=== PATIENT | male | born 1945 | race Caucasian/White ===

== ENCOUNTER → 2016-04-12 | Outpatient (REF) | payer MEDICARE ==
[2016-04-12 11:27] LABS: ALBUMIN 3.8 GM/DL (3.2-5.2); ALBUMIN/GLOBULIN RATIO 1.41 (1.00-1.93); ALKALINE PHOSPHATASE 119 U/L (45-117); ALT/SGPT 27 U/L (12-78); ANION GAP 6 MEQ/L (8-16); AST/SGOT 20 U/L (15-37); BILIRUBIN,TOTAL 0.5 MG/DL (0.2-1.0); BLOOD UREA NITROGEN 15 MG/DL (7-18); CALCIUM LEVEL 8.3 MG/DL (8.8-10.2); CARBON DIOXIDE LEVEL 29 MEQ/L (21-32); CHLORIDE LEVEL 105 MEQ/L (98-107); GLOMERULAR FILTRATION RATE > 60.0 (>42); GLUCOSE, FASTING 87 MG/DL (83-110); POTASSIUM SERUM 4.2 MEQ/L (3.5-5.1); SODIUM LEVEL 140 MEQ/L (136-145); TOTAL PROTEIN 6.5 GM/DL (6.4-8.2)
== END ==
LOC: M SFHCPLAZ 08:11
PROVIDERS: ATTEND Internal Medicine
DX: I10 Essential (primary) hypertension (principal)

== ENCOUNTER → 2016-10-16 | Outpatient (REF) | payer MEDICARE ==
[2016-10-16 12:16] LABS: MEAN CORPUSCULAR HEMOGLOBIN 33.5 pg (27.0-33.0); MEAN CORPUSCULAR HGB CONC 33.1 g/dl (32.0-36.5); MEAN CORPUSCULAR VOLUME 101.1 fl (80.0-96.0); RED CELL DISTRIBUTION WIDTH 15.8 % (11.5-14.5); WHITE BLOOD COUNT 3.9 K/mm3 (4.0-10.0)
[2016-10-16 12:23] LABS: ALBUMIN 3.9 GM/DL (3.2-5.2); ALBUMIN/GLOBULIN RATIO 1.39 (1.00-1.93); ALKALINE PHOSPHATASE 99 U/L (45-117); ALT/SGPT 28 U/L (12-78); ANION GAP 8 MEQ/L (8-16); AST/SGOT 24 U/L (15-37); BILIRUBIN,TOTAL 0.5 MG/DL (0.2-1.0); BLOOD UREA NITROGEN 19 MG/DL (7-18); CALCIUM LEVEL 8.6 MG/DL (8.8-10.2); CARBON DIOXIDE LEVEL 29 MEQ/L (21-32); CHLORIDE LEVEL 104 MEQ/L (98-107); CHOLESTEROL LEVEL 133 MG/DL (<200); CREATININE FOR GFR 0.92 MG/DL (0.70-1.30); GLOMERULAR FILTRATION RATE > 60.0 (>42); GLUCOSE, FASTING 79 MG/DL (83-110); POTASSIUM SERUM 4.7 MEQ/L (3.5-5.1); SODIUM LEVEL 141 MEQ/L (136-145); TOTAL PROTEIN 6.7 GM/DL (6.4-8.2); TRIGLYCERIDES LEVEL 57 MG/DL (<150)
== END ==
LOC: M SFHCPLAZ 08:31
PROVIDERS: ATTEND Internal Medicine
DX: Z79.899 Other long term (current) drug therapy (principal); J44.0 Chronic obstructive pulmonary disease with (acute) lower respiratory infection; I10 Essential (primary) hypertension; I25.10 Atherosclerotic heart disease of native coronary artery without angina pectoris

== ENCOUNTER → 2017-04-03 | Outpatient (CLI) | payer MEDICARE | LOC: M RAD 09:48 | DX: J44.9 Chronic obstructive pulmonary disease, unspecified (principal); Z87.891 Personal history of nicotine dependence | CPT/HCPCS: G0297 ==

== ENCOUNTER → 2017-04-20 | Outpatient (REF) | payer MEDICARE ==
[2017-04-20 13:01] LABS: HEMATOCRIT 43.5 % (42.0-52.0); HEMOGLOBIN 14.6 g/dl (14.0-18.0); MEAN CORPUSCULAR HEMOGLOBIN 34.6 pg (27.0-33.0); MEAN CORPUSCULAR HGB CONC 33.6 g/dl (32.0-36.5); MEAN CORPUSCULAR VOLUME 103.1 fl (80.0-96.0); PLATELET COUNT, AUTOMATED 221 10^3/uL (150-450); RED BLOOD COUNT 4.22 10^6/uL (4.30-6.10); WHITE BLOOD COUNT 5.7 10^3/uL (4.0-10.0)
[2017-04-20 13:17] LABS: VITAMIN B12 LEVEL 512 PG/ML
[2017-04-20 13:35] LABS: ALBUMIN 3.9 GM/DL (3.2-5.2); ALBUMIN/GLOBULIN RATIO 1.44 (1.00-1.93); ALKALINE PHOSPHATASE 98 U/L (45-117); ALT/SGPT 27 U/L (12-78); ANION GAP 8 MEQ/L (8-16); AST/SGOT 19 U/L (7-37); BILIRUBIN,TOTAL 0.4 MG/DL (0.2-1.0); BLOOD UREA NITROGEN 14 MG/DL (7-18); CALCIUM LEVEL 8.5 MG/DL (8.8-10.2); CARBON DIOXIDE LEVEL 29 MEQ/L (21-32); CHLORIDE LEVEL 105 MEQ/L (98-107); CREATININE FOR GFR 0.78 MG/DL (0.70-1.30); GLOMERULAR FILTRATION RATE > 60.0 (>42); GLUCOSE, FASTING 91 MG/DL (70-100); MAGNESIUM LEVEL 1.7 MG/DL (1.8-2.4); POTASSIUM SERUM 4.2 MEQ/L (3.5-5.1); SODIUM LEVEL 142 MEQ/L (136-145); TOTAL PROTEIN 6.6 GM/DL (6.4-8.2)
== END ==
LOC: M SFHCPLAZ 07:46
DX: D75.89 Other specified diseases of blood and blood-forming organs (principal); I10 Essential (primary) hypertension
CPT/HCPCS: 82746

== ENCOUNTER 2017-08-16 08:29 | Day surgery (SDC) | payer MEDICARE ==
[2017-08-16] MEDS: PROPARACAINE 0.5% OPHTH SOL 15ML OD (09:17)
[2017-08-16] MEDS: PHENYLEPHRINE 2.5% OPHTH SOL 2ML OD (09:17)
[2017-08-16] MEDS: TROPICAMIDE 1% OPHTH SOLN 2ML OD (09:17)
[2017-08-16] MEDS: OFLOXACIN 0.3 % (OCUFLOX) OPTH SOL 5ML OD (09:17)
[2017-08-16] MEDS ORDERED: fentaNYL 100 MCG/2 ML INJECTION (J3010) As Ordered (09:59)
[2017-08-16] MEDS ORDERED: MIDAZOLAM INJ 2 MG/2 ML VIAL (J2250) As Ordered (09:59)
[2017-08-16] MEDS: DUOVISC (0.50ML VISCOAT/0.55ML PROVISC) OPHTH KIT As Ordered ×2 (10:38→10:40)
[2017-08-16] MEDS: LIDOCAINE 0.75%/EPINEPHRINE 0.025% IN BSS 1ML SYR INTRACAMERAL (OR ONLY) As Ordered ×2 (10:38→10:40)
[2017-08-16] MEDS: POVIDONE-IODINE 5% OPHTH PREP SOL 30ML As Ordered ×2 (10:38→10:39)
[2017-08-16] MEDS: CEFUROXIME 1MG/0.1ML INTRACAMERAL INJ As Ordered ×2 (10:38→10:39)
[2017-08-16] MEDS: BALANCED SALT IRRIGATION SOLUTION 500ML BAG (FOR OR EYE MACHINE) As Ordered ×2 (10:38→10:39)
== END 2017-08-16 11:30 | disposition home or self-care (01) ==
LOC: M SDC 08:29
DX: H25.11 Age-related nuclear cataract, right eye (principal); I25.10 Atherosclerotic heart disease of native coronary artery without angina pectoris; I25.2 Old myocardial infarction; Z98.61 Coronary angioplasty status; Z79.82 Long term (current) use of aspirin; I10 Essential (primary) hypertension; E78.5 Hyperlipidemia, unspecified; Z87.891 Personal history of nicotine dependence; Z79.899 Other long term (current) drug therapy; J44.9 Chronic obstructive pulmonary disease, unspecified
CPT/HCPCS: 66984

== ENCOUNTER 2017-08-23 06:58 | Day surgery (SDC) | payer MEDICARE ==
[~2017-08-23 06:58] MED LIST: SLF 3 ML SYR IV
[2017-08-23] MEDS ORDERED: PROPARACAINE 0.5% OPHTH SOL 15ML OS (07:00)
[2017-08-23] MEDS ORDERED: OFLOXACIN 0.3 % (OCUFLOX) OPTH SOL 5ML OS (07:00)
[2017-08-23] MEDS ORDERED: TROPICAMIDE 1% OPHTH SOLN 2ML OS (07:00)
[2017-08-23] MEDS ORDERED: PHENYLEPHRINE 2.5% OPHTH SOL 2ML OS (07:00)
[2017-08-23] MEDS: PROPARACAINE 0.5% OPHTH SOL 15ML OS (07:26)
[2017-08-23] MEDS: PHENYLEPHRINE 2.5% OPHTH SOL 2ML OS (07:26)
[2017-08-23] MEDS: OFLOXACIN 0.3 % (OCUFLOX) OPTH SOL 5ML OS (07:26)
[2017-08-23] MEDS: TROPICAMIDE 1% OPHTH SOLN 2ML OS (07:26)
[2017-08-23] MEDS ORDERED: MIDAZOLAM INJ 2 MG/2 ML VIAL (J2250) As Ordered (08:43)
[2017-08-23] MEDS ORDERED: fentaNYL 100 MCG/2 ML INJECTION (J3010) As Ordered (08:43)
[2017-08-23] MEDS: LIDOCAINE 0.75%/EPINEPHRINE 0.025% IN BSS 1ML SYR INTRACAMERAL (OR ONLY) As Ordered (08:56)
[2017-08-23] MEDS: DUOVISC (0.50ML VISCOAT/0.55ML PROVISC) OPHTH KIT As Ordered (08:56)
[2017-08-23] MEDS: BALANCED SALT IRRIGATION SOLUTION 500ML BAG (FOR OR EYE MACHINE) As Ordered (08:56)
[2017-08-23] MEDS: CEFUROXIME 1MG/0.1ML INTRACAMERAL INJ As Ordered (08:56)
[2017-08-23] MEDS: POVIDONE-IODINE 5% OPHTH PREP SOL 30ML As Ordered (08:56)
== END 2017-08-23 09:45 | disposition home or self-care (01) ==
LOC: M SDC 06:58
DX: H25.12 Age-related nuclear cataract, left eye (principal); I10 Essential (primary) hypertension; I25.10 Atherosclerotic heart disease of native coronary artery without angina pectoris; I25.2 Old myocardial infarction; E78.00 Pure hypercholesterolemia, unspecified; M12.9 Arthropathy, unspecified; M54.2 Cervicalgia; J44.9 Chronic obstructive pulmonary disease, unspecified; R06.09 Other forms of dyspnea; G89.29 Other chronic pain; R91.1 Solitary pulmonary nodule; Z88.5 Allergy status to narcotic agent; Z79.899 Other long term (current) drug therapy; Z79.82 Long term (current) use of aspirin; Z87.891 Personal history of nicotine dependence; Z95.5 Presence of coronary angioplasty implant and graft
CPT/HCPCS: 66984

== ENCOUNTER → 2017-11-01 | Outpatient (REF) | payer MEDICARE ==
[2017-11-01 12:18] LABS: HEMATOCRIT 41.4 % (42.0-52.0); HEMOGLOBIN 14.1 g/dl (13.5-17.5); MEAN CORPUSCULAR HEMOGLOBIN 35.3 pg (27.0-33.0); MEAN CORPUSCULAR HGB CONC 34.1 g/dl (32.0-36.5); MEAN CORPUSCULAR VOLUME 103.5 fl (80.0-96.0); PLATELET COUNT, AUTOMATED 224 10^3/uL (150-450); RED CELL DISTRIBUTION WIDTH 14.7 % (11.5-14.5); WHITE BLOOD COUNT 5.1 10^3/uL (4.0-10.0)
[2017-11-01 12:59] LABS: ALBUMIN 3.9 GM/DL (3.2-5.2); ALBUMIN/GLOBULIN RATIO 1.39 (1.00-1.93); ALKALINE PHOSPHATASE 85 U/L (45-117); ALT/SGPT 28 U/L (12-78); ANION GAP 5 MEQ/L (8-16); AST/SGOT 21 U/L (7-37); BILIRUBIN,TOTAL 0.4 MG/DL (0.2-1.0); BLOOD UREA NITROGEN 18 MG/DL (7-18); CALCIUM LEVEL 8.8 MG/DL (8.8-10.2); CARBON DIOXIDE LEVEL 31 MEQ/L (21-32); CHLORIDE LEVEL 105 MEQ/L (98-107); CHOLESTEROL LEVEL 122 MG/DL (<200); CREATININE FOR GFR 0.91 MG/DL (0.70-1.30); GLOMERULAR FILTRATION RATE > 60.0 (>42); GLUCOSE, FASTING 96 MG/DL (70-100); HDL CHOLESTEROL 57 MG/DL (>40); LDL CHOLESTEROL 53.8 MG/DL (<100); MAGNESIUM LEVEL 1.9 MG/DL (1.8-2.4); NON-HDL-C 65 MG/DL; POTASSIUM SERUM 4.7 MEQ/L (3.5-5.1); SODIUM LEVEL 141 MEQ/L (136-145); TOTAL PROTEIN 6.7 GM/DL (6.4-8.2); TRIGLYCERIDES LEVEL 56 MG/DL (<150)
== END ==
LOC: M SFHCPLAZ 07:42
DX: D75.89 Other specified diseases of blood and blood-forming organs (principal); I10 Essential (primary) hypertension; I25.10 Atherosclerotic heart disease of native coronary artery without angina pectoris
CPT/HCPCS: 83735

== ENCOUNTER → 2018-07-11 | Outpatient (CLI) | payer MEDICARE ==
[~2018-07-11] MED LIST changes: +ANOR1AER; +ASPI81TA26 PO; +ATOR40TA75; +FLUT22IN; +LEVA12INH INH; +LEVAINH INH; +LIDO5DIS41 TD; +LISI10TA4 PO; +MELO15TA28; +METO1TAB32; +NITR0.4S14; -SLF 3 ML SYR IV
[2018-07-11 13:41] LABS: BLOOD UREA NITROGEN 17 MG/DL (7-18); CALCIUM LEVEL 8.6 MG/DL (8.8-10.2); CARBON DIOXIDE LEVEL 31 MEQ/L (21-32); CHLORIDE LEVEL 106 MEQ/L (98-107); CREATININE FOR GFR 0.88 MG/DL (0.70-1.30); GLOMERULAR FILTRATION RATE > 60.0 (>42); GLUCOSE, FASTING 103 MG/DL (70-100); POTASSIUM SERUM 4.7 MEQ/L (3.5-5.1); SODIUM LEVEL 141 MEQ/L (136-145)
== END ==
LOC: M WUC 11:32
PROVIDERS: ATTEND Physician Assistant
DX: I25.10 Atherosclerotic heart disease of native coronary artery without angina pectoris (principal)

== ENCOUNTER → 2018-07-17 | Outpatient (CLI) | payer MEDICARE ==
--- NOTE | 2018-07-17 11:55 | REP ---
REASON: COPD. COMPARISON: Multiple, latest 02/29/2016. Chronic basilar changes status quo. Cardiomediastinal silhouette unchanged. No change in the osseous structures. No acute patchy parenchymal opacities or pleural effusions have developed. IMPRESSION: No change. No acute cardiopulmonary disease. Electronically Signed by Jayce Ricardo DO 07/17/2018 03:22 P
== END ==
LOC: M SMT 08:58
PROVIDERS: ATTEND Internal Medicine Pulmonary Disease
DX: J44.9 Chronic obstructive pulmonary disease, unspecified (principal)

== ENCOUNTER → 2018-09-05 | Outpatient (REF) | payer MEDICARE ==
[2018-09-05 09:50] LABS: HEMATOCRIT 40.1 % (42.0-52.0); HEMOGLOBIN 13.4 g/dl (13.5-17.5); MEAN CORPUSCULAR HEMOGLOBIN 34.8 pg (27.0-33.0); MEAN CORPUSCULAR HGB CONC 33.4 g/dl (32.0-36.5); MEAN CORPUSCULAR VOLUME 104.2 fl (80.0-96.0); PLATELET COUNT, AUTOMATED 222 10^3/uL (150-450); RED BLOOD COUNT 3.85 10^6/uL (4.30-6.10); WHITE BLOOD COUNT 5.7 10^3/uL (4.0-10.0)
[2018-09-05 10:13] LABS: ALBUMIN 3.9 GM/DL (3.2-5.2); ALT/SGPT 26 U/L (12-78); BILIRUBIN,TOTAL 0.5 MG/DL (0.2-1.0); BLOOD UREA NITROGEN 20 MG/DL (7-18); CALCIUM LEVEL 8.8 MG/DL (8.8-10.2); CARBON DIOXIDE LEVEL 31 MEQ/L (21-32); CHLORIDE LEVEL 106 MEQ/L (98-107); CHOLESTEROL LEVEL 114 MG/DL (<200); CHOLESTEROL RISK RATIO 1.965 (<5); CREATININE FOR GFR 0.96 MG/DL (0.70-1.30); GLOMERULAR FILTRATION RATE > 60.0 (>42); GLUCOSE, FASTING 96 MG/DL (70-100); HDL CHOLESTEROL 58 MG/DL (>40); LDL CHOLESTEROL 45 MG/DL (<100); MAGNESIUM LEVEL 2.1 MG/DL (1.8-2.4); NON-HDL-C 56 MG/DL; POTASSIUM SERUM 4.8 MEQ/L (3.5-5.1); SODIUM LEVEL 141 MEQ/L (136-145); TOTAL PROTEIN 6.6 GM/DL (6.4-8.2); TRIGLYCERIDES LEVEL 54 MG/DL (<150)
== END ==
LOC: M SFHCPLAZ 08:18
PROVIDERS: ATTEND Internal Medicine
DX: Z86.010 Personal history of colon polyps (principal); I10 Essential (primary) hypertension; I25.10 Atherosclerotic heart disease of native coronary artery without angina pectoris

== ENCOUNTER → 2018-09-10 | Outpatient (CLI) | payer MEDICARE ==
--- NOTE | 2018-09-10 11:03 | REP ---
Clinical: Shortness of breath and cough. Technique: PA and lateral. Comparison: 07/17/2018, 02/29/2016 Findings: Mediastinum and cardiac silhouette are normal. Lung rosario demonstrate stable chronic interstitial changes. No consolidation, effusion, or pneumothorax. Skeletal structures demonstrate degenerative changes. Impression: Chronic stable changes. No obvious acute cardiopulmonary process. If the patient remains symptomatic consider chest CT for further investigation. Electronically Signed by Jordan Dennis MD 09/10/2018 10:54 A
== END ==
LOC: M WUC 10:22
PROVIDERS: ATTEND Physician Assistant
DX: J44.1 Chronic obstructive pulmonary disease with (acute) exacerbation (principal); J84.9 Interstitial pulmonary disease, unspecified

== ENCOUNTER 2018-09-29 08:37 | Inpatient (IN) | payer MEDICARE ==
[~2018-09-29] VITALS: Ht 170.2 cm; Wt 95.2 kg
[~2018-09-29 08:37] MED LIST changes: -ATOR40TA75; +ATOR40TA75 PO; -FLUT22IN; +FLUT22IN INH; -MELO15TA28; +MELO15TA28 PO; -METO1TAB32; +METO1TAB32 PO; -NITR0.4S14; +NITR0.4S14 SL
[2018-09-29] MEDS ORDERED: ALBUTEROL SULFATE 2.5 MG/0.5 ML INH NEB SOLN INH ONE (09:00)
[2018-09-29] MEDS ORDERED: IPRATROPIUM 0.5MG/ALBUTEROL 2.5MG INH SOL UD 3ML (DUONEB)(J7620) NEB ONE (09:00)
[2018-09-29] MEDS ORDERED: LIDOCAINE 5% (LIDODERM) PATCH TD SCH (09:00)
[2018-09-29 09:23] LABS: BASO % 0.5 % (0.0-1.0); EOS # 0.1 10^3/uL (0.0-0.50); EOS % 1.4 % (0.0-3.0); HEMOGLOBIN 11.8 g/dl (13.5-17.5); LYMPH # 0.5 10^3/uL (1.5-4.5); LYMPH % 6.1 % (24.0-44.0); MEAN CORPUSCULAR HGB CONC 32.8 g/dl (32.0-36.5); MEAN CORPUSCULAR VOLUME 106.8 fl (80.0-96.0); MONO # 0.6 10^3/uL (0.0-0.8); NEUTROPHILS # 6.6 10^3/uL (1.8-7.7); NEUTROPHILS % 82.8 % (36.0-66.0); PLATELET COUNT, AUTOMATED 166 10^3/uL (150-450); RED BLOOD COUNT 3.37 10^6/uL (4.30-6.10)
[2018-09-29 09:33] LABS: ABG BASE EXCESS 3.5 (-2.0-2.0); ABG HCO3 28.6 MEQ/L (22.0-26.0); ABG PARTIAL PRESSURE CO2 45.5 mmHg (35.0-45.0); ABG PARTIAL PRESSURE O2 74.2 mmHg (75.0-100.0); ABG STANDARD HCO3 27.5 MEQ/L (22.0-26.0); ABG pH (ARTERIAL) 7.416 UNITS (7.350-7.450)
[2018-09-29 09:42] LABS: BLOOD UREA NITROGEN 15 MG/DL (7-18); CALCIUM LEVEL 8.3 MG/DL (8.8-10.2); CARBON DIOXIDE LEVEL 31 MEQ/L (21-32); CHLORIDE LEVEL 105 MEQ/L (98-107); CK-MB VALUE MASS 1.6 NG/ML (<3.6); CPK CREATINE PHOSPHOKINASE 53 U/L (39-308); CREATININE FOR GFR 0.93 MG/DL (0.70-1.30); GLOMERULAR FILTRATION RATE > 60.0 (>42); GLUCOSE, FASTING 141 MG/DL (70-100); MB/CK RELATIVE INDEX 3.02 (< OR =4); NT-PRO BNP 130 PG/ML (<450); POTASSIUM SERUM 4.1 MEQ/L (3.5-5.1); SODIUM LEVEL 142 MEQ/L (136-145); TROPONIN I < 0.02 NG/ML (< 0.10)
[2018-09-29] MEDS ORDERED: FURO40TA2 PO (09:42)
[2018-09-29] MEDS ORDERED: LISI-1046 PO (09:42)
[2018-09-29] MEDS ORDERED: LORA-622 PO (09:42)
[2018-09-29] MEDS ORDERED: GABA-843 PO (09:42)
[2018-09-29] MEDS ORDERED: ISOVUE-370 76% 100ML VIAL (Q9967) As Ordered ONE (10:12)
[2018-09-29] MEDS ORDERED: MOM 30ML SUSPENSION UDC PO PRN (11:30)
[2018-09-29] MEDS ORDERED: MAALOX 30 ML SUSP *UDC PO PRN (11:30)
--- NOTE | 2018-09-29 11:35 | REP ---
CT ANGIOGRAM CHEST: TECHNIQUE: Axial contrast enhanced images from the thoracic inlet to the upper abdomen using 100 mL Isovue 370 intravenous contrast material with multiplanar reformations. There no CT evidence of pulmonary embolism. There is no thoracic aortic aneurysm or dissection with mild scattered atherosclerotic calcifications. The heart is normal in size. There is no pleural or pericardial effusion. There is no mediastinal, hilar, or chest wall lymphadenopathy. Focal parenchymal calcification is seen along the right hemidiaphragm. Scattered fibroatelectatic changes are seen primarily in the lung bases, which have mildly increased since the prior study of 10/20/2015. There are focal parenchymal opacities in the lingula inferiorly, which could represent progressive fibroatelectasis or acute infiltrate compared to the prior CT scan. There are degenerative changes of the spine. Small cyst is seen in the peripheral left lobe of the liver, lateral segment. IMPRESSION: No CT evidence of pulmonary embolism or aortic dissection. Bilateral fibroatelectatic changes primarily in the lower lung zones. Mild patchy parenchymal opacity in the inferior lingula could represent progressive focal fibroatelectasis compared to the 10/20/2015 exam versus acute infiltrate. Electronically Signed by Garcia Felix MD 09/29/2018 11:43 P
--- NOTE | 2018-09-29 11:37 | REP ---
CHEST, SINGLE VIEW: Single view of the chest is performed. There is bilateral fibrotic change again seen with chronic blunting of the left costophrenic angle. Increased parenchymal opacity in the lingula suggests acute infiltrate or atelectasis. The heart is not significantly enlarged. There is calcification of the thoracic aorta. IMPRESSION: Suspect lingular infiltrate or atelectasis. Electronically Signed by Garcia Felix MD 09/29/2018 11:43 P
[2018-09-29] MEDS ORDERED: LEVALBUTEROL 1.25 MG/0.5 ML CONCENTRATE NEB INH PRN (11:45)
[2018-09-29] MEDS ORDERED: LevoFLOXacin IV 750 MG in APPROPRIATE DILUENT 1 EA IV ONE (12:30)
[2018-09-29] MEDS: ENOXAPARIN 40 MG/0.4 ML SYRINGE (J1650) SC SCH (14:11)
[2018-09-29] MEDS: IPRATROPIUM 0.5MG/ALBUTEROL 2.5MG INH SOL UD 3ML (DUONEB)(J7620) NEB SCH ×2 (14:11→20:00)
[2018-09-29 16:00] VITALS: BP 164/60
[2018-09-29] MEDS: FUROSEMIDE 40 MG/4 ML VIAL (J1940) IV SCH (16:16)
[2018-09-29] MEDS: methylPREDNISolone INJ 40 MG/1 ML VIAL (J2920) IV SCH ×2 (16:16→23:55)
--- NOTE | 2018-09-29 19:40 | ECGEPIP ---
[facility] - ED Test Date: 2018-09-29 Pat Name: ASHVIN ZEE Department: Room: 0102 Gender: Male [employer] Specimens: valeri : 1945 Requested By: America Kirkpatrick Order Number: [id number] Reading MD: America Kirkpatrick Measurements Intervals [place] Rate: 87 P: 71 MI: 181 QRS: 46 QRSD: 78 T: 10 QT: 352 QTc: 424 Interpretive Statements SINUS RHYTHM WITH OCCASIONAL VENTRICULAR PREMATURE COMPLEXES NONSPECIFIC T-WAVE ABNORMALITY NONSPECIFIC ST T WAVE CHANGES 02/25/[address] T WAVE CHANGES LESS ECTOPY Electronically Signed on 09-29-2018 19:39:54 EDT by America Kirkpatrick
[2018-09-29] MEDS: SYMBICORT 80/4.5MCG INHALER 6GM INH SCH (21:10)
[2018-09-29 22:00] VITALS: BP 158/84
--- NOTE | 2018-09-29 22:18 | HPEPDOC ---
General Date of Admission 09/29/18 Date of Service: Sep 29, 2018 Chief Complaint The patient is a 73-year-old male admitted with a reason for visit of SOB. Source: Patient Exam Limitations: No limitations Severity: Severe History of Present Illness 73 year old male with PMH of CAD s/p stents, COPD, obesity presented to the ED with 3 weeks history of increasing shortness of breath, cough. Patient had a copd exacerbation in june when he was in [facility] for a 1month and after he was discharged from there he was well for about 6 weeks then in the end of august again started having increased shortness of breath he went to the urgent care x 2 he was given a course of steroid then in the next week went back again as he was no better got methyl pred in the urgent care and a course of doxycycline. He finished treatment however has continued to be the short of breath with cough with increased phlegm production. HE had CT angio of chest done which was negative for PE but showed Bilateral fibroatelectatic changes primarily in the lower lung zones. Mild patchy parenchymal opacity in the inferior lingula could represent progressive focal fibroatelectasis compared to the 10/20/2015 exam versus acute infiltrate. Pateint was admitted for acute on chronic respiratory failure with hypoxia, pneumonia and COPD exacerbation. Home Medications Scheduled Aspirin (Aspirin EC) 81 Mg Tab, 81 MG PO QHS, (Reported) Atorvastatin Calcium (Atorvastatin Calcium) 40 Mg Tab, 40 MG PO QHS, (Reported) Fluticasone Propionate (Flovent Hfa) 220 Mcg/Act Aer, 2 PUFFS INH BID, (Reported) Lisinopril (Lisinopril) 2.5 Mg Tablet, 2.5 MG PO QHS, (Reported) Loratadine (Loratadine) 10 Mg Tablet, 10 MG PO DAILY, (Reported) Meloxicam (Meloxicam) 15 Mg Tab, 15 MG PO DAILY, (Reported) Metoprolol Succinate (Metoprolol Succinate) 25 Mg Tab, 25 MG PO QHS, (Reported) Umeclidinium Brm/Vilanterol Tr (Anoro Ellipta 62.5-25 Mcg INH) 1 Aer Aer, 1 PUFF DAILY, (Reported) Scheduled PRN Furosemide (Furosemide) 40 Mg Tablet, 40 MG PO DAILY PRN for FLUID RETENTION, (Reported) Gabapentin (Gabapentin) 300 Mg Capsule, 300 MG PO QHS PRN for LEG PAIN, (Reported) Levalbuterol Hydrochloride (Xopenex Hfa) 45 Mcg/Act Aer, 2 PUFF INH Q8HP PRN for SOB/WHEEZING, (Reported) Levalbuterol Hydrochloride (Xopenex Concentrate) 1.25 Mg/0.5 Ml Neb, 1.25 MG INH Q8HP PRN for SOB/WHEEZING, (Reported) Lidocaine (Lidoderm) 5 % Dis, 1 PATCH TD DAILY PRN for BACK PAIN, (Reported) Nitroglycerin (Nitroglycerin) 0.4 Mg Sub, 0.4 MG SL Q5MP PRN for CHEST PAIN, (Reported) Allergies Coded Allergies: No Known Allergies (Unverified , 08/23/17) Past Medical History Medical History CAD (CORONARY ARTERY DISEASE) HYPERTENSION CHRONIC OBSTRUCTIVE PULMONARY DISEASE, UNSPECIFIED COPD TYPE HISTORY OF ADENOMATOUS POLYP OF COLON CHRONIC BACK PAIN LUNG NODULE MACROCYTOSIS RIGHT VERTEBRAL ACUTE OCCLUSION AN 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 DIVERTICULOSIS HEMORRHOIDS Surgical History TONSILLECTOMY IN CHILDHOOD, VASECTOMY IN HIS 30S, LUMBAR LAMINECTOMY AFTER INJURED NECK AND BACK 2002, CORONARY STENT PLACED 2005, COLONOSCOPY 03/2010, COLONOSCOPY 08/2013, BILATERAL CATARACT EXTRACTION-DR. ISSA 08/16/2017, ADENOIDECTOMY Family History Significant Family History: Cancer, Diabetes, Heart disease FATHER AGE 72 OF COMPLICATIONS OF DIABETES. MOTHER AGE 74 OF CAD. ONE BROTHER LIVING AND WELL. ONE SISTER OF HEART DISEASE, BREAST CANCER. FOUR OTHER SISTERS, TWO DAUGHTERS LIVING AND WELL.\N. Social History * Smoker: quit less than 1 year Alcohol: occationally Drugs: denies A-FIB/CHADSVASC A-FIB History Current/History of A-Fib/PAF?: No Review of Systems Constitutional: Reports: Weakness, Fatigue; Denies: Chills, Fever, Malaise, Night Sweats Eyes: Denies: Pain, Vision change ENT: Denies: Head Aches, Ear Pain, Dysphagia Skin: Denies: Rash, Lesions, Breakdown Pulmonary: Reports: Dyspnea, Cough Cardiovascular: Denies: Chest Pain, Palpitations, Orthopnea, Paroxysmal Noc. Dyspnea, Lt Headedness Gastrointestinal: Denies: Nausea, Vomiting, Abdominal Pain, Diarrhea Genitourinary: Denies: Dysuria, Frequency, Incontinence, Retention Musculoskeletal: Reports: Back Pain Neurological: Denies: Weakness, Numbness, Change in speech, Confusion Physical Examination General Exam: Positive: Alert, Cooperative, Moderate Distress Eye Exam: Positive: PERRLA, Conjunctiva & lids normal, EOMI; Negative: Sclera icteric ENT Exam: Positive: Atraumatic, Mucous membr. moist/pink, Pharynx Normal Neck Exam: Positive: Supple, Lymphadenopathy, Other; Negative: JVD, thyromegaly Chest Exam: Positive: Rhonchi, Wheezing, Diminished Heart Exam: Positive: Tachycardic, Regular Rhythm, Normal S1, Normal S2; Negative: Murmurs, Rubs Telemetry: Positive: No significant arrhythmia Abdomen Exam: Positive: Normal bowel sounds, Soft; Negative: Tenderness, Hepatospenomegaly Extremity Exam: Positive: Edema Skin Exam: Positive: Nl turgor and temperature; Negative: Breakdown, Lesion Psych Exam: Positive: Memory Intact, Oriented x 3 Vital Signs Vital Signs Date Time Temp Pulse Resp B/P (MAP) Pulse Ox O2 Delivery O2 Flow Rate FiO2 09/29/18 10:22 84 89 09/29/18 10:15 129/64 (85) 09/29/18 09:36 16 09/29/18 09:07 Nasal Cannula 2.0 09/29/18 08:37 97.0 Laboratory Data Labs 24H Laboratory Tests 2 09/29/18 09:10: Immature Granulocyte % (Auto) 1.2, White Blood Count 8.0, Red Blood Count 3.37L, Hemoglobin 11.8L, Hematocrit 36.0L, Mean Corpuscular Volume 106.8H, Mean Corpuscular Hemoglobin 35.0H, Mean Corpuscular Hemoglobin Concent 32.8, Red Cell Distribution Width 14.6H, Platelet Count 166, Neutrophils (%) (Auto) 82.8H, Lymphocytes (%) (Auto) 6.1L, Monocytes (%) (Auto) 8.0H, Eosinophils (%) (Auto) 1.4, Basophils (%) (Auto) 0.5, Neutrophils # (Auto) 6.6, Lymphocytes # (Auto) 0.5L, Monocytes # (Auto) 0.6, Eosinophils # (Auto) 0.1, Basophils # (Auto) 0.0, Nucleated Red Blood Cells % (auto) 0.0, Anion Gap 6L, Glomerular Filtration Rate > 60.0, Lactic Acid Level 1.5, Blood Urea Nitrogen 15, Creatinine 0.93, Sodium Level 142, Potassium Level 4.1, Chloride Level 105, Carbon Dioxide Level 31, Calcium Level 8.3L, Total Creatine Kinase 53, Creatine Kinase MB 1.6, Creatine Kinase MB Relative Index 3.02, Troponin I < 0.02, JL-[id number]-Type Natriuretic Peptide 130 09/29/18 09:13: Blood Gas Bicarbonate Standard 27.5H, Arterial Blood pH 7.416, Arterial Blood Partial Pressure CO2 45.5H, Arterial Blood Partial Pressure O2 74.2L, Arterial Blood Total CO2 30.0, Arterial Blood HCO3 28.6H, Arterial Blood Base Excess 3.5H, Arterial Blood Oxygen Saturation 95.0 CBC/BMP Laboratory Tests 09/29/18 09:10 Red Blood Count 3.37 L, Mean Corpuscular Volume 106.8 H, Mean Corpuscular Hemoglobin 35.0 H, Mean Corpuscular Hemoglobin Concent 32.8, Red Cell Distribution Width 14.6 H, Neutrophils (%) (Auto) 82.8 H, Lymphocytes (%) (Auto) 6.1 L, Monocytes (%) (Auto) 8.0 H, Eosinophils (%) (Auto) 1.4, Basophils (%) (Auto) 0.5, Neutrophils # (Auto) 6.6, Lymphocytes # (Auto) 0.5 L, Monocytes # (Auto) 0.6, Eosinophils # (Auto) 0.1, Basophils # (Auto) 0.0, Calcium Level 8.3 L, Total Creatine Kinase 53 Microbiology Microbiology 09/29/18 Blood Culture, Received Pending 09/29/18 Blood Culture, Received Pending Assessment/Plan Acute on chronic respiratory failure with hypoxia with his own oxygen his saturations on presentation was 89% and RR was 26 oxygen supplementation was increased to 4 l treatment done for copd exacerbation COPD exacerbation continue duobebs, symbicort, levofloxacin methyl pred Possible corpulmonale / pulmonary hypertension Possible Pneumonia levofloxacin Hyperlipidemia statin Had abnormal nocturnal oximetry so on oxygen supplementation only at night. Never had a sleep study done. CAD s/p stents continue ASA, statin , betablocker Hypertension continue lisinoptil Plan / VTE VTE Prophylaxis Ordered?: Yes MARA FONG MD Sep 29, 2018 10:48
[2018-09-29] MEDS: DOCUSATE SODIUM 100 MG CAP PO SCH (22:27)
[2018-09-29] MEDS: METOPROLOL SUCC *XL* 25MG TAB (TopROL *XL*) PO SCH (22:29)
[2018-09-29] MEDS: LISINOPRIL *2.5 MG* TAB PO SCH (22:29)
[2018-09-29] MEDS: ASPIRIN 81 MG ENTERIC TAB PO SCH (22:29)
[2018-09-29] MEDS: LIDOCAINE 5% (LIDODERM) PATCH TD SCH (22:30)
[2018-09-29] MEDS: ATORVASTATIN 20 MG TAB PO SCH (22:31)
[2018-09-30] MEDS: IPRATROPIUM 0.5MG/ALBUTEROL 2.5MG INH SOL UD 3ML (DUONEB)(J7620) NEB SCH ×4 (02:00→20:00)
[2018-09-30 06:00] VITALS: BP 134/69
[2018-09-30 06:47] LABS: BASO % 0.1 % (0.0-1.0); HEMATOCRIT 35.1 % (42.0-52.0); HEMOGLOBIN 11.9 g/dl (13.5-17.5); LYMPH # 0.3 10^3/uL (1.5-4.5); LYMPH % 4.6 % (24.0-44.0); MEAN CORPUSCULAR HEMOGLOBIN 34.6 pg (27.0-33.0); MEAN CORPUSCULAR HGB CONC 33.9 g/dl (32.0-36.5); MONO # 0.1 10^3/uL (0.0-0.8); MONO % 1.5 % (0.0-5.0); NEUTROPHILS # 6.3 10^3/uL (1.8-7.7); NEUTROPHILS % 92.2 % (36.0-66.0); PLATELET COUNT, AUTOMATED 250 10^3/uL (150-450); RED BLOOD COUNT 3.44 10^6/uL (4.30-6.10); WHITE BLOOD COUNT 6.8 10^3/uL (4.0-10.0)
[2018-09-30 07:12] LABS: BLOOD UREA NITROGEN 25 MG/DL (7-18); CARBON DIOXIDE LEVEL 28 MEQ/L (21-32); CHLORIDE LEVEL 106 MEQ/L (98-107); GLOMERULAR FILTRATION RATE > 60.0 (>42); GLUCOSE, FASTING 177 MG/DL (70-100); POTASSIUM SERUM 4.9 MEQ/L (3.5-5.1); SODIUM LEVEL 139 MEQ/L (136-145)
[2018-09-30] MEDS: SYMBICORT 80/4.5MCG INHALER 6GM INH SCH (08:24)
[2018-09-30] MEDS: **NOTE PATIENT COMMENT** MISC XX SCH (09:00)
[2018-09-30] MEDS: DOCUSATE SODIUM 100 MG CAP PO SCH ×2 (09:00→21:11)
[2018-09-30] MEDS: LORATADINE 10 MG TAB PO SCH (09:05)
[2018-09-30] MEDS: ENOXAPARIN 40 MG/0.4 ML SYRINGE (J1650) SC SCH (09:06)
[2018-09-30] MEDS: methylPREDNISolone INJ 40 MG/1 ML VIAL (J2920) IV SCH ×2 (09:06→15:54)
[2018-09-30] MEDS: FUROSEMIDE 40 MG/4 ML VIAL (J1940) IV SCH ×2 (09:17→16:54)
--- NOTE | 2018-09-30 10:22 | IPNPDOC ---
Date Seen The patient was seen on 09/30/18. Progress Note SUBJECTIVE: Patient is a 73-year-old white male with a past medical history of Coronary artery disease, hypertension, COPD, back pain, diverticulosis, obesity, lung nodule, right vertebral acute occlusion and ulcerated plaque of proximal left subclavian, hemorrhoids, and macrocytosis presented to the ER with a three week history of increasing shortness of breath and productive cough. The gilmer ent states that he had a COPD exacerbation in June while in [place]. He was admitted at a hospital in [place] for 9 days and once discharged continued to feel well for 6 weeks. He began having increasing shortness of breath toward the end August and went to an urgent care where he received steroids. He continued to feel unwell despite the steroids and returned to the urgent care where they gave him methylprednisolone and doxycycline. He took the entire course of antibiotics and still had a productive cough and shortness of breath. On 09/28/18 when he presented to the ER, he had a chest CTA that was negative for a PE but did show bilateral fibroatelectatic changes in lower lung zones. He was admitted for acute on chronic respiratory failure with hypoxia, pneumonia, and COPD exacerbation. Patient examined at bedside. He was sitting in a tripod position and using accessory muscles during the exam. Mr. Rodriguez was able to speak in full sentences but with some difficulty. He states that he has been producing clear phlegm when he coughs and denies hemoptysis. He reports that the swelling in his lower extremities began about a month ago and he was prescribed Lasix soon after. He d enies chest pain, chest pressure, dizziness, nausea, vomiting, and diarrhea. OBJECTIVE PHYSICAL EXAMINATION: VITAL SIGNS: Please see below. GENERAL: Patient sitting in bed in tripod position using accessory muscles. HEENT: NC AT, mucous membranes moist and pink, hearing impaired and not wearing hearing aids CARDIOVASCULAR: diminished heart sounds RESPIRATORY: Wheezing heard throughout, crackles heard at lung bases ABDOMINAL: nontender, slightly distended, normal bowel sounds EXTREMITIES: 1+ pitting edema up to knee, no rashes or cyanosis noted NEUROLOGICAL: no focal deficits PSYCHOLOGICAL: normal affect LABORATORY DATA, IMAGING STUDIES, MICROBIOLOGY: Please see below. 1. Chest x-ray 09/29/18: Suspect lingular infiltrate or atelectasis. 2. Angiography CT 09/29/18: No CT evidence of pulmonary embolism or aortic dissection. Bilateral fibroatelectatic changes primarily in the lower lung zones. Mild patchy parenchymal opacity in the inferior lingula could represent progressive focal f ibroatelectasis compared to the 10/20/2015 exam versus acute infiltrate. DVT prophylaxis ordered?: Yes, lovenox ASSESSMENT AND PLAN: Patient is a 73-year-old white male with a past medical history of Coronary artery disease, hypertension, COPD, back pain, diverticulosis, obesity, lung nodule, right vertebral acute occlusion and ulcerated plaque of proximal left subclavian, hemorrhoids, and macrocytosis PROBLEMS: 1. Acute on chronic respiratory failure with hypoxia -presented with oxygen saturated was 89% and RR was 26 -Patient taken off of O2 and breathing room air -c/w COPD exacerbation treatment -blood gas pH: 7.41, pCO2 45.5 -Patient working with PT, encouraging patient to ambulate 2. COPD exacerbation -c/w duonebs, symbicort, levofloxacin -c/w methylprednisolone 3. Possible corpulmonale / pulmonary hypertension 4. Pneumonia -d/c levofloxacin 09/30/18 -begin PO Azithromycin 5. Hyperlipidemia -statin -Had abnormal nocturnal oximetry -On oxygen only during the night 6. CAD s/p stents -continue ASA, statin, and beta-praful 7. Hypertension -continue lisinopril DISPOSITION: Patient is stable and comfortable. Sputum culture pending. Treating pneumonia with azithromycin and continuing steroids. Patient is being encouraged to ambulate and working with PT. VS, I&O, 24H, Fishbone Vital Signs/I&O Vital Signs Date Time Temp Pulse Resp B/P (MAP) Pulse Ox O2 Delivery O2 Flow Rate FiO2 09/30/18 06:00 97.2 63 17 134/69 (90) 96 09/29/18 21:00 2.0 09/29/18 09:07 Nasal Cannula I&O- Last 24 Hours up to 6 AM 09/30/18 05:59 Intake Total 835 ml Output Total 2000 ml Balance -1165 ml Laboratory Data 24H LABS Laboratory Tests 2 09/30/18 06:29: Immature Granulocyte % (Auto) 1.6, White Blood Count 6.8, Red Blood Count 3.44L, Hemoglobin 11.9L, Hematocrit 35.1L, Mean Corpuscular Volume 102.0H, Mean Corpuscular Hemoglobin 34.6H, Mean Corpuscular Hemoglobin Concent 33.9, Red Cell Distribution Width 14.2, Platelet Count 250, Neutrophils (%) (Auto) 92.2H, Lymphocytes (%) (Auto) 4.6L, Monocytes (%) (Auto) 1.5, Eosinophils (%) (Auto) 0.0, Basophils (%) (Auto) 0.1, Neutrophils # (Auto) 6.3, Lymphocytes # (Auto) 0.3L, Monocytes # (Auto) 0.1, Eosinophils # (Auto) 0.0, Basophils # (Auto) 0.0, Nucleated Red Blood Cells % (auto) 0.3H, Anion Gap 5L, Glomerular Filtration Rate > 60.0, Blood Urea Nitrogen 25#H, Creatinine 1.10, Sodium Level 139, Potassium Level 4.9, Chloride Level 106, Carbon Dioxide Level 28, Calcium Level 9.0 CBC/BMP Laboratory Tests 09/30/18 06:29 Red Blood Count 3.44 L, Mean Corpuscular Volume 102.0 H, Mean Corpuscular Hemoglobin 34.6 H, Mean Corpuscular Hemoglobin Concent 33.9, Red Cell Distribution Width 14.2, Neutrophils (%) (Auto) 92.2 H, Lymphocytes (%) (Auto) 4.6 L, Monocytes (%) (Auto) 1.5, Eosinophils (%) (Auto) 0.0, Basophils (%) (Auto) 0.1, Neutrophils # (Auto) 6.3, Lymphocytes # (Auto) 0.3 L, Monocytes # (Auto) 0.1, Eosinophils # (Auto) 0.0, Basophils # (Auto) 0.0, Calcium Level 9.0 Microbiology Microbiology 09/29/18 Blood Culture - Preliminary, Resulted No growth after 24 hours . All specim... 09/29/18 Blood Culture - Preliminary, Resulted No growth after 24 hours . All specim... Attending Note Attending Note I have personally seen and examined the patient this am. I agree with the finding and the plan of care as documented above in the resident's/ medical student's note. ALBINA FABIAN OMS-3 Sep 30, 2018 10:22 MARA FONG MD Sep 30, 2018 23:22
[2018-09-30] MEDS ORDERED: LevoFLOXacin IV 750 MG in APPROPRIATE DILUENT 1 EA IV SCH (13:00)
[2018-09-30 14:00] VITALS: BP 131/84
[2018-09-30] MEDS: AZITHROMYCIN 250 MG TAB PO SCH (15:54)
[2018-09-30] MEDS: LIDOCAINE 5% (LIDODERM) PATCH TD SCH (21:00)
[2018-09-30] MEDS: ASPIRIN 81 MG ENTERIC TAB PO SCH (21:11)
[2018-09-30] MEDS: ATORVASTATIN 20 MG TAB PO SCH (21:11)
[2018-09-30] MEDS: METOPROLOL SUCC *XL* 25MG TAB (TopROL *XL*) PO SCH (21:12)
[2018-09-30] MEDS: LISINOPRIL *2.5 MG* TAB PO SCH (21:12)
[2018-09-30 22:00] VITALS: BP 132/71
[2018-10-01] MEDS: SYMBICORT 80/4.5MCG INHALER 6GM INH SCH ×3 (00:23→21:15)
[2018-10-01] MEDS: methylPREDNISolone INJ 40 MG/1 ML VIAL (J2920) IV SCH ×3 (00:50→20:50)
[2018-10-01] MEDS: IPRATROPIUM 0.5MG/ALBUTEROL 2.5MG INH SOL UD 3ML (DUONEB)(J7620) NEB SCH ×4 (02:00→20:00)
[2018-10-01 06:00] VITALS: BP 117/63
[2018-10-01 06:10] LABS: BASO % 0.1 % (0.0-1.0); HEMATOCRIT 35.7 % (42.0-52.0); HEMOGLOBIN 12.2 g/dl (13.5-17.5); LYMPH # 0.4 10^3/uL (1.5-4.5); LYMPH % 2.7 % (24.0-44.0); MEAN CORPUSCULAR HGB CONC 34.2 g/dl (32.0-36.5); MEAN CORPUSCULAR VOLUME 105.3 fl (80.0-96.0); MONO # 0.3 10^3/uL (0.0-0.8); MONO % 1.9 % (0.0-5.0); NEUTROPHILS # 12.7 10^3/uL (1.8-7.7); PLATELET COUNT, AUTOMATED 249 10^3/uL (150-450); RED BLOOD COUNT 3.39 10^6/uL (4.30-6.10); WHITE BLOOD COUNT 13.5 10^3/uL (4.0-10.0)
[2018-10-01 06:14] LABS: BLOOD UREA NITROGEN 35 MG/DL (7-18); CALCIUM LEVEL 9.1 MG/DL (8.8-10.2); CARBON DIOXIDE LEVEL 29 MEQ/L (21-32); CHLORIDE LEVEL 105 MEQ/L (98-107); CREATININE FOR GFR 1.24 MG/DL (0.70-1.30); GLOMERULAR FILTRATION RATE > 60.0 (>42); GLUCOSE, FASTING 184 MG/DL (70-100); POTASSIUM SERUM 4.3 MEQ/L (3.5-5.1); SODIUM LEVEL 140 MEQ/L (136-145)
[2018-10-01] MEDS: FUROSEMIDE 40 MG/4 ML VIAL (J1940) IV SCH (08:07)
[2018-10-01] MEDS: ENOXAPARIN 40 MG/0.4 ML SYRINGE (J1650) SC SCH (08:08)
[2018-10-01] MEDS: LORATADINE 10 MG TAB PO SCH (08:08)
[2018-10-01] MEDS: DOCUSATE SODIUM 100 MG CAP PO SCH ×2 (08:08→20:50)
[2018-10-01] MEDS: AZITHROMYCIN 250 MG TAB PO SCH (08:08)
[2018-10-01] MEDS: **NOTE PATIENT COMMENT** MISC XX SCH (08:11)
--- NOTE | 2018-10-01 08:59 | IPNPDOC ---
Date Seen The patient was seen on 10/01/18. Progress Note SUBJECTIVE: Patient is a 73-year-old white male with a past medical history of Coronary artery disease, hypertension, COPD, back pain, diverticulosis, obesity, lung nodule, right vertebral acute occlusion and ulcerated plaque of proximal left subclavian, hemorrhoids, and macrocytosis presented to the ER with a three week history of increasing shortness of breath and productive cough. The gilmer ent states that he had a COPD exacerbation in June while in [place]. He was admitted at a hospital in [place] for 9 days and once discharged continued to feel well for 6 weeks. He began having increasing shortness of breath toward the end August and went to an urgent care where he received steroids. He continued to feel unwell despite the steroids and returned to the urgent care where they gave him methylprednisolone and doxycycline. He took the entire course of antibiotics and still had a productive cough and shortness of breath. On 09/28/18 when he presented to the ER, he had a chest CTA that was negative for a PE but did show bilateral fibroatelectatic changes in lower lung zones. He was admitted for acute on chronic respiratory failure with hypoxia, pneumonia, and COPD exacerbation. Patient examined at bedside. He states that his breathing is unchanged from yesterday. Mr. Rodriguez continues to cough up clear sputum and has slight difficulty speaking in full sentences. He has not developed any acute symptoms overnight. Patient is anxious to go home and did not have any questions. OBJECTIVE PHYSICAL EXAMINATION: VITAL SIGNS: Please see below. GENERAL: Patient sitting in bed in tripod position using accessory muscles. HEENT: NC AT, mucous membranes moist and pink, hearing impaired and not wearing hearing aids CARDIOVASCULAR: diminished heart sounds RESPIRATORY: Wheezing heard throughout, crackles heard at lung bases ABDOMINAL: nontender, slightly distended, normal bowel sounds EXTREMITIES: 1+ pitting edema up to knee, no rashes or cyanosis noted NEUROLOGICAL: no focal deficits PSYCHOLOGICAL: normal affect LABORATORY DATA, IMAGING STUDIES, MICROBIOLOGY: Please see below. 1. Chest x-ray 09/29/18: Suspect lingular infiltrate or atelectasis. 2. Angiography CT 09/29/18: No CT evidence of pulmonary embolism or aortic dissection. Bilateral fibroatelectatic changes primarily in the lower lung zones. Mild patchy parenchymal opacity in the inferior lingula could represent progressive focal fibroatelectasis compared to the 10/20/2015 exam versus acute infiltrate. DVT prophylaxis ordered?: Yes, ritu ASSESSMENT AND PLAN: Patient is a 73-year-old white male with a past medical history of Coronary artery disease, hypertension, COPD, back pain, diverticulosi s, obesity, lung nodule, right vertebral acute occlusion and ulcerated plaque of proximal left subclavian, hemorrhoids, and macrocytosis PROBLEMS: 1. Acute on chronic respiratory failure with hypoxia -presented with oxygen saturated was 89% and RR was 26 -Patient taken off of O2 and breathing room air -c/w COPD exacerbation treatment -blood gas pH: 7.41, pCO2 45.5 -Patient working with PT, encouraging patient to ambulate with oxygen 2. COPD exacerbation -c/w duonebs, symbicort, levofloxacin -c/w methylprednisolone -using incentive spirometry 3. Possible corpulmonale / pulmonary hypertension -c/w lasix -has diuresed 1.7 Liters thus far 4. Pneumonia -d/c levofloxacin 09/30/18 -begin PO Azithromycin -Sputum gram stain was positive for Gram + cocci in pairs and Gram - rods 5. Hyperlipidemia -statin -Had abnormal nocturnal oximetry 6. CAD s/p stents -continue ASA, statin, and beta-praful 7. Hypertension -continue lisinopril DISPOSITION: Patient is stable and comfortable. Patient working with PT and encouraged to ambulate with oxygen. He will hopefully be discharged home tomorrow. VS, I&O, 24H, [facility] Vital Signs/I&O Vital Signs Date Time Temp Pulse Resp B/P (MAP) Pulse Ox O2 Delivery O2 Flow Rate FiO2 10/01/18 06:00 96.9 69 19 117/63 (81) 94 09/30/18 20:15 2.0 09/29/18 09:07 Nasal Cannula l I&O- Last 24 Hours up to 6 AM 10/01/18 05:59 Intake Total 1650 ml Output Total 2640 ml Balance -990 ml Laboratory Data 24H LABS Laboratory Tests 2 10/01/18 05:27: Immature Granulocyte % (Auto) 1.3, White Blood Count 13.5H, Red Blood Count 3.39L, Hemoglobin 12.2L, Hematocrit 35.7L, Mean Corpuscular Volume 105.3H, Mean Corpuscular Hemoglobin 36.0H, Mean Corpuscular Hemoglobin Concent 34.2, Red Cell Distribution Width 14.4, Platelet Count 249, Neutrophils (%) (Auto) 94.0H, Lymphocytes (%) (Auto) 2.7L, Monocytes (%) (Auto) 1.9, Eosinophils (%) (Auto) 0.0, Basophils (%) (Auto) 0.1, Neutrophils # (Auto) 12.7H, Lymphocytes # (Auto) 0.4L, Monocytes # (Auto) 0.3, Eosinophils # (Auto) 0.0, Basophils # (Auto) 0.0, Nucleated Red Blood Cells % (auto) 0.0, Anion Gap 6L, Glomerular Filtration Rate > 60.0, Blood Urea Nitrogen 35H, Creatinine 1.24, Sodium Level 140, Potassium Level 4.3, Chloride Level 105, Carbon Dioxide Level 29, Calcium Level 9.1 CBC/BMP Laboratory Tests 10/01/18 05:27 Red Blood Count 3.39 L, Mean Corpuscular Volume 105.3 H, Mean Corpuscular Hemoglobin 36.0 H, Mean Corpuscular Hemoglobin Concent 34.2, Red Cell Distribution Width 14.4, Neutrophils (%) (Auto) 94.0 H, Lymphocytes (%) (Auto) 2.7 L, Monocytes (%) (Auto) 1.9, Eosinophils (%) (Auto) 0.0, Basophils (%) (A uto) 0.1, Neutrophils # (Auto) 12.7 H, Lymphocytes # (Auto) 0.4 L, Monocytes # (Auto) 0.3, Eosinophils # (Auto) 0.0, Basophils # (Auto) 0.0, Calcium Level 9.1 Microbiology Microbiology 09/29/18 Blood Culture - Preliminary, Resulted No growth after 24 hours . All specim... 09/29/18 Blood Culture - Preliminary, Resulted No growth after 24 hours . All specim... 09/30/18 Gram Stain - Final, Resulted 09/30/18 Sputum Culture, Resulted Pending Attending Note Attending Note I have personally seen and examined the patient this am. I agree with the finding and the plan of care as documented above in the resident's / medical student's note. ALBINA FABIAN OMS-3 Oct 01, 2018 08:59 MARA FONG MD Oct 01, 2018 17:21
[2018-10-01 14:00] VITALS: BP 129/69
[2018-10-01] MEDS ORDERED: FUROSEMIDE 20 MG TAB PO ONE (18:00)
[2018-10-01] MEDS: ASPIRIN 81 MG ENTERIC TAB PO SCH (20:51)
[2018-10-01] MEDS: ATORVASTATIN 20 MG TAB PO SCH (20:51)
[2018-10-01 20:55] VITALS: BP 130/88
[2018-10-01] MEDS: LISINOPRIL *2.5 MG* TAB PO SCH (20:55)
[2018-10-01] MEDS: METOPROLOL SUCC *XL* 25MG TAB (TopROL *XL*) PO SCH (20:55)
[2018-10-01] MEDS: LIDOCAINE 5% (LIDODERM) PATCH TD SCH (21:00)
[2018-10-01 22:00] VITALS: BP 150/67
[2018-10-02] MEDS: IPRATROPIUM 0.5MG/ALBUTEROL 2.5MG INH SOL UD 3ML (DUONEB)(J7620) NEB SCH ×2 (00:36→08:00)
[2018-10-02 06:00] VITALS: BP 152/78
[2018-10-02 06:15] LABS: BASO # 0.1 10^3/uL (0.0-0.2); BASO % 0.3 % (0.0-1.0); HEMATOCRIT 36.6 % (42.0-52.0); HEMOGLOBIN 12.4 g/dl (13.5-17.5); LYMPH # 0.5 10^3/uL (1.5-4.5); LYMPH % 3.5 % (24.0-44.0); MEAN CORPUSCULAR HEMOGLOBIN 35.5 pg (27.0-33.0); MEAN CORPUSCULAR HGB CONC 33.9 g/dl (32.0-36.5); MEAN CORPUSCULAR VOLUME 104.9 fl (80.0-96.0); MONO # 0.6 10^3/uL (0.0-0.8); MONO % 3.7 % (0.0-5.0); NEUTROPHILS # 13.9 10^3/uL (1.8-7.7); NEUTROPHILS % 90.6 % (36.0-66.0); PLATELET COUNT, AUTOMATED 284 10^3/uL (150-450); RED BLOOD COUNT 3.49 10^6/uL (4.30-6.10); WHITE BLOOD COUNT 15.3 10^3/uL (4.0-10.0)
[2018-10-02 06:36] LABS: BLOOD UREA NITROGEN 36 MG/DL (7-18); CALCIUM LEVEL 9.2 MG/DL (8.8-10.2); CARBON DIOXIDE LEVEL 31 MEQ/L (21-32); CHLORIDE LEVEL 105 MEQ/L (98-107); CREATININE FOR GFR 1.12 MG/DL (0.70-1.30); GLOMERULAR FILTRATION RATE > 60.0 (>42); GLUCOSE, FASTING 191 MG/DL (70-100); POTASSIUM SERUM 4.5 MEQ/L (3.5-5.1); SODIUM LEVEL 140 MEQ/L (136-145)
[2018-10-02] MEDS: SYMBICORT 80/4.5MCG INHALER 6GM INH SCH (08:22)
[2018-10-02] MEDS: methylPREDNISolone INJ 40 MG/1 ML VIAL (J2920) IV SCH (08:30)
[2018-10-02] MEDS: DOCUSATE SODIUM 100 MG CAP PO SCH (08:32)
[2018-10-02] MEDS: LORATADINE 10 MG TAB PO SCH (08:33)
[2018-10-02] MEDS: AZITHROMYCIN 250 MG TAB PO SCH (08:41)
[2018-10-02] MEDS: **NOTE PATIENT COMMENT** MISC XX SCH (08:41)
[2018-10-02] MEDS: ENOXAPARIN 40 MG/0.4 ML SYRINGE (J1650) SC SCH (08:41)
[2018-10-02] MEDS ORDERED: FUROSEMIDE 20 MG TAB PO SCH (09:00)
[2018-10-02] MEDS ORDERED: PRED10TA2 PO (12:57)
[2018-10-02] MEDS ORDERED: FURO20TA2 PO (12:57)
--- NOTE | 2018-10-02 18:40 | DS.PDOC ---
Discharge Summary General Date of Admission Sep 29, 2018 at 11:30 Date of Discharge 10/02/18 Attending Physician: NAVIN ACOSTA MD Discharge Summary PROCEDURES PERFORMED DURING STAY: None ADMITTING DIAGNOSES: 1. Acute on chronic respiratory failure with hypoxia 2. Pneumonia 3. COPD exacerbation DISCHARGE DIAGNOSES: 1. Acute on chronic respiratory failure with hypoxia 2. COPD exacerbation 3. Pneumonia 4. Hyperlipidemia 5. CAD s/p stents 6. Hypertension 7. History of cor pulmonale COMPLICATIONS/CHIEF COMPLAINT: Acute And Chronic Respiratory Failure. HISTORY OF PRESENT ILLNESS: Patient presented to the ER with a three week history of increasing shortness of breath and productive cough. The patient states that he had a COPD exacerbation in June while in [place]. He was admitted at a hospital in [place] for 9 days and once discharged continued to feel well for 6 weeks. He began having increasing shortness of breath toward the end August and went to an urgent care where he received steroids. He continued to feel unwell despite the steroids and returned to the urgent care where they gave him methylprednisolone and doxycycline. He took the entire course of an tibiotics and still had a productive cough and shortness of breath. On 09/28/18 when he presented to the ER, he had a chest CTA that was negative for a PE but did show bilateral fibroatelectatic changes in lower lung zones. He was admitted for acute on chronic respiratory failure with hypoxia, pneumonia, and COPD exacerbation. HOSPITAL COURSE: Patient had a chest x-ray and Angiography CT performed on 09/29/18. Bilateral fibroatelectatic changes were found primarily in the lower lung zones. He was started on standard COPD exacerbation treatment. He was treated for suspected pneumonia with levaquin and azithromycin. Sputum cultures came back positive for gram + cocci in pairs and gram- rods. Venous blood cultures came back positive for gram positive cocci in pairs; repeat blood cultures were drawn and came back negative for growth. Patient was encouraged to ambulate with oxygen and used 2L oxygen via nasal cannula at pm during the duration of his stay. Patient was started on a higher dose of lasix and diuresed a total of 1.9 Liters. On admission he presented with hypervolemia in the se tting of having just been started on a PO diuretic last week. He admits to not limiting his salt and water intake and only taking the diuretic as needed. DISCHARGE MEDICATIONS: Please see below. ALLERGIES: Please see below. PHYSICAL EXAMINATION ON DISCHARGE: VITAL SIGNS: Please see below. GENERAL: Patient sitting in bed in tripod position using accessory muscles. HEENT: NC AT, mucous membranes moist and pink, hearing impaired and not wearing hearing aids CARDIOVASCULAR: diminished heart sounds RESPIRATORY: Wheezing heard throughout, crackles heard at lung bases ABDOMINAL: nontender, slightly distended, normal bowel sounds EXTREMITIES: 1+ pitting edema up to knee, no rashes or cyanosis noted NEUROLOGICAL: no focal deficits, alert and oriented x3 PSYCHOLOGICAL: normal affect LABORATORY DATA: Please see below. IMAGIN. Chest x-ray 09/29/18: Suspect lingular infiltrate or atelectasis. 2. Angiography CT 09/29/18: No CT evidence of pulmonary embolism or aortic dissection. Bilateral fibroatelectatic changes primarily in the lower lung zones. Mild patchy parenchymal opacity in the inferior lingula could represent progressive focal fibroatelectasis compared to the 10/20/2015 exam versus acute infiltrate. PROGNOSIS: Fair ACTIVITY: Complete independence with a cane, As tolerated DIET: 2 Gram sodium DISPOSITION: Patient being discharged Home, Self-Care. DISCHARGE INSTRUCTIONS: 1. 2000ml/24 hours fluid restriction 2. Return to emergency room for emergency 3. Limit salt and fluid intake 4. Complete steroid taper ITEMS TO FOLLOWUP ON ON OUTPATIENT: 1. Follow up with Dr. Sewell on October 09 at 1:15 pm DISCHARGE CONDITION: Patient is stable I saw and evaluated the patient. I agree with the findings and plan of care as documented in the documenters note. I spent 45 minutes coordinating this patient's discharge. Vital Signs/I&Os Vital Signs Date Time Temp Pulse Resp B/P (MAP) Pulse Ox O2 Delivery O2 Flow Rate FiO2 10/02/18 06:00 97.7 77 17 152/78 (102) 94 10/01/18 20:45 2.0 09/29/18 09:07 Nasal Cannula I&O- Last 24 Hours up to 6 AM 10/02/18 06:00 Intake Total 1218 ml Output Total 1100 ml Balance 118 ml Laboratory Data Labs 24H Laboratory Tests 2 10/02/18 05:36: Immature Granulocyte % (Auto) 1.9, White Blood Count 15.3H, Red Blood Count 3.49L, Hemoglobin 12.4L, Hematocrit 36.6L, Mean Corpuscular Volume 104.9H, Mean Corpuscular Hemoglobin 35.5H, Mean Corpuscular Hemoglobin Concent 33.9, Red Cell Distribution Width 14.5, Platelet Count 284, Neutrophils (%) (Auto) 90.6H, Lymphocytes (%) (Auto) 3.5L, Monocytes (%) (Auto) 3.7, Eosinophils (%) (Auto) 0.0, Basophils (%) (Auto) 0.3, Neutrophils # (Auto) 13.9H, Lymphocytes # (Auto) 0.5L, Monocytes # (Auto) 0.6, Eosinophils # (Auto) 0.0, Basophils # (Auto) 0.1, Nucleated Red Blood Cells % (auto) 0.0, Anion Gap 4L, Glomerular Filtration Rate > 60.0, Blood Urea Nitrogen 36H, Creatinine 1.12, Sodium Level 140, Potassium Level 4.5, Chloride Level 105, Carbon Dioxide Level 31, Calcium Level 9.2 CBC/BMP Laboratory Tests 10/02/18 05:36 Red Blood Count 3.49 L, Mean Corpuscular Volume 104.9 H, Mean Corpuscular Hemoglobin 35.5 H, Mean Corpuscular Hemoglobin Concent 33.9, Red Cell Distribution Width 14.5, Neutrophils (%) (Auto) 90.6 H, Lymphocytes (%) (Auto) 3.5 L, Monocytes (%) (Auto) 3.7, Eosinophils (%) (Auto) 0.0, Basophils (%) (Auto) 0.3, Neutrophils # (Auto) 13.9 H, Lymphocytes # (Auto) 0.5 L, Monocytes # (Auto) 0.6, Eosinophils # (Auto) 0.0, Basophils # (Auto) 0.1, Calcium Level 9.2 Microbiology Microbiology 10/01/18 Blood Culture - Preliminary, Resulted No growth after 24 hours . All specim... 10/01/18 Blood Culture - Preliminary, Resulted No growth after 24 hours . All specim... 09/29/18 Blood Culture - Preliminary, Resulted No Growth after 72 hours. All specime... 09/29/18 Blood Culture - Preliminary, Resulted 09/30/18 Gram Stain - Final, Resulted 09/30/18 Sputum Culture, Resulted Pending Discharge Medications Scheduled Aspirin (Aspirin EC) 81 Mg Tab, 81 MG PO QHS, (Reported) Atorvastatin Calcium (Atorvastatin Calcium) 40 Mg Tab, 40 MG PO QHS, (Reported) Fluticasone Propionate (Flovent Hfa) 220 Mcg/Act Aer, 2 PUFFS INH BID, (Reported) Furosemide (Furosemide) 20 Mg Tablet, 60 MG PO DAILY Lisinopril (Lisinopril) 2.5 Mg Tablet, 2.5 MG PO QHS, (Reported) Loratadine (Loratadine) 10 Mg Tablet, 10 MG PO DAILY, (Reported) Meloxicam (Meloxicam) 15 Mg Tab, 15 MG PO DAILY, (Reported) Metoprolol Succinate (Metoprolol Succinate) 25 Mg Tab, 25 MG PO QHS, (Reported) Prednisone (Prednisone) 10 Mg Tablet, 10 MG PO TAPER Take 4 tabs daily x 3 days, then 3 tabs daily x 3 days, then 2 tabs daily x 3 days, then 1 tab daily x 3 days and stop Umeclidinium Brm/Vilanterol Tr (Anoro Ellipta 62.5-25 Mcg INH) 1 Aer Aer, 1 PUFF DAILY, (Reported) Scheduled PRN Gabapentin (Gabapentin) 300 Mg Capsule, 300 MG PO QHS PRN for LEG PAIN, (Reported) Levalbuterol Hydrochloride (Xopenex Hfa) 45 Mcg/Act Aer, 2 PUFF INH Q8HP PRN for SOB/WHEEZING, (Reported) Levalbuterol Hydrochloride (Xopenex Concentrate) 1.25 Mg/0.5 Ml Neb, 1.25 MG INH Q8HP PRN for SOB/WHEEZING, (Reported) Lidocaine (Lidoderm) 5 % Dis, 1 PATCH TD DAILY PRN for BACK PAIN, (Reported) Nitroglycerin (Nitroglycerin) 0.4 Mg Sub, 0.4 MG SL Q5MP PRN for CHEST PAIN, (Reported) Allergies Coded Allergies: No Known Allergies (Unverified , 08/23/17) ALBINA FABIAN S-3 Oct 02, 2018 18:40 NAVIN ACOTSA MD Oct 03, 2018 18:48
== END 2018-10-02 14:17 | disposition home or self-care (01) | DRG 193 ==
LOC: M ED 08:37 → M ED INP 11:30 → M MSPAV 13:24
PROVIDERS: ADMIT Internal Medicine Nephrology; ATTEND Internal Medicine
DX: J18.9 Pneumonia, unspecified organism (principal); J96.21 Acute and chronic respiratory failure with hypoxia; J44.1 Chronic obstructive pulmonary disease with (acute) exacerbation; I10 Essential (primary) hypertension; E78.5 Hyperlipidemia, unspecified; I25.10 Atherosclerotic heart disease of native coronary artery without angina pectoris; Z95.2 Presence of prosthetic heart valve; I27.81 Cor pulmonale (chronic); Z79.899 Other long term (current) drug therapy; I27.20 Pulmonary hypertension, unspecified; R91.1 Solitary pulmonary nodule; K57.30 Diverticulosis of large intestine without perforation or abscess without bleeding; K64.8 Other hemorrhoids

== ENCOUNTER → 2018-10-28 | Outpatient (CLI) | payer MEDICARE ==
[~2018-10-28] MED LIST changes: +FURO20TA2 PO; +FURO40TA2 PO; +GABA-843 PO; +LISI-1046 PO; +LORA-622 PO; +PRED10TA2 PO
--- NOTE | 2018-10-28 17:12 | REP ---
REASON: COPD. COMPARISON: Multiple, the latest 09/29/2018, a portable exam. Chronic basilar changes are noted status quo, left greater than right. The lung rosario are somewhat hyper-expanded but no acute patchy parenchymal opacities or pleural effusions have developed. The heart is not enlarged. There is no change in the osseous structures. Spinal degenerative changes are noted status quo. Mild grade 1 mid and lower thoracic vertebral body compression deformities are unchanged from the prior lateral view of 09/10/2018. IMPRESSION:No evidence of acute cardiopulmonary disease with chronic changes as described above. Electronically Signed by Jayce Ricardo DO 10/29/2018 11:21 A
== END ==
LOC: M SMT 10:29
PROVIDERS: ATTEND Internal Medicine Pulmonary Disease
DX: R91.8 Other nonspecific abnormal finding of lung field (principal)

== ENCOUNTER → 2018-11-18 | Outpatient (CLI) | payer MEDICARE ==
[2018-11-18 14:33] LABS: BLOOD UREA NITROGEN 26 MG/DL (7-18); CALCIUM LEVEL 8.8 MG/DL (8.8-10.2); CARBON DIOXIDE LEVEL 29 MEQ/L (21-32); CHLORIDE LEVEL 103 MEQ/L (98-107); CREATININE FOR GFR 1.24 MG/DL (0.70-1.30); GLOMERULAR FILTRATION RATE > 60.0 (>42); GLUCOSE, FASTING 99 MG/DL (70-100); POTASSIUM SERUM 4.1 MEQ/L (3.5-5.1); SODIUM LEVEL 142 MEQ/L (136-145)
== END ==
LOC: M WUC 09:38
PROVIDERS: ATTEND Physician Assistant
DX: I27.81 Cor pulmonale (chronic) (principal); E83.42 Hypomagnesemia

== ENCOUNTER → 2018-12-11 | Outpatient (REF) | payer MEDICARE ==
[2018-12-11 13:24] LABS: ALBUMIN 3.9 GM/DL (3.2-5.2); BILIRUBIN,TOTAL 0.5 MG/DL (0.2-1.0); CALCIUM LEVEL 9.1 MG/DL (8.8-10.2); CREATININE FOR GFR 1.5 MG/DL (0.70-1.30); GLOMERULAR FILTRATION RATE 48.6 (>42); POTASSIUM SERUM 4.4 MEQ/L (3.5-5.1); TOTAL PROTEIN 6.8 GM/DL (6.4-8.2)
== END ==
LOC: M SFHCPLAZ 09:18
PROVIDERS: ATTEND Internal Medicine
DX: I10 Essential (primary) hypertension (principal)

== ENCOUNTER → 2018-12-11 | Outpatient (REF) | payer MEDICARE ==
[2018-12-11 12:42] LABS: CREATININE FOR GFR 1.54 MG/DL (0.70-1.30); GLOMERULAR FILTRATION RATE 47.1 (>42); MAGNESIUM LEVEL 2.1 MG/DL (1.8-2.4); POTASSIUM SERUM 4.3 MEQ/L (3.5-5.1)
== END ==
LOC: M LABDRAWP 09:28
PROVIDERS: ATTEND Physician Assistant
DX: I27.81 Cor pulmonale (chronic) (principal); E83.42 Hypomagnesemia

== ENCOUNTER → 2018-12-23 | Outpatient (CLI) | payer MEDICARE ==
[2018-12-23 09:38] LABS: BLOOD UREA NITROGEN 22 MG/DL (7-18); CALCIUM LEVEL 9.1 MG/DL (8.8-10.2); CARBON DIOXIDE LEVEL 32 MEQ/L (21-32); CHLORIDE LEVEL 103 MEQ/L (98-107); CREATININE FOR GFR 1.21 MG/DL (0.70-1.30); GLOMERULAR FILTRATION RATE > 60.0 (>42); GLUCOSE, FASTING 99 MG/DL (70-100); POTASSIUM SERUM 4.6 MEQ/L (3.5-5.1); SODIUM LEVEL 141 MEQ/L (136-145)
== END ==
LOC: M WUC 08:32
PROVIDERS: ATTEND Physician Assistant
DX: I27.81 Cor pulmonale (chronic) (principal)

== ENCOUNTER → 2019-02-04 | Outpatient (CLI) | payer MEDICARE ==
--- NOTE | 2019-02-10 09:25 | SLEEPCENT ---
DATE OF STUDY: 02/04/2019 ORDERED BY: Ernesto Lima DO Nocturnal polysomnography was performed for evaluation of sleep physiology in this patient with a history of obstructive lung disease, excessive somnolence, and abnormal nocturnal recording oximetry despite supplemental oxygen. 8 hours and 53 minutes of data were reviewed. There were 274 minutes of sleep identified. Sleep latency was normal at 36 minutes. Rapid eye movement (REM) latency was prolonged at 194 minutes. Sleep architecture was poor with periods of wake-sleep fragmentation. There were 2 brief REM cycles noted. Overall sleep efficiency was only 51.8%. The patient's electrocardiogram showed a sinus rhythm with an average heart rate of 68 beats per minute. Electroencephalogram (EEG) showed normal waveforms for awake and sleep. There were 121 respiratory events identified of 10 seconds in duration or greater for an apnea-hypopnea index of 26.5. The events were primarily obstructive, not exclusive to sleep stage nor body posture. Arousals from respiratory events occurred 20.4 times per hour and oxygen desaturations were seen into the low 80s. There was also some activity noted in the limb electromyogram (EMG) leads. There were 4 trains of 30 events. Limb movement arousal index was borderline at 9.9. IMPRESSION: 1. Obstructive sleep apnea syndrome (G47.33). Apnea-hypopnea index 26.5. 2. Possible periodic limb movement disorder (G47.61). Limb movement arousal index 9.9. RECOMMENDATIONS: The patient should be encouraged to return to the sleep disorder center for pressure therapy. In the interim, alcohol and sedative avoidance should be practiced and caution exercised during operation of motor vehicles. Given his advanced obstructive airways disease use of a bilevel device may be necessary for titration. Pending response to pressure therapy interventions to reduce the frequency arousal of limb activity might also be helpful.
== END ==
LOC: M SLEEP 19:42
PROVIDERS: ATTEND Internal Medicine Pulmonary Disease
DX: G47.33 Obstructive sleep apnea (adult) (pediatric) (principal); G47.61 Periodic limb movement disorder

== ENCOUNTER → 2019-02-10 | Outpatient (CLI) | payer MEDICARE ==
[~2019-02-10] MED LIST changes: +ISOVUE-370 76% 100ML VIAL (Q9967) As Ordered ONE
--- NOTE | 2019-02-10 16:00 | REP ---
Extracranial CTA: 02/10/2019. Indication: Atherosclerotic stenosis. Comparison: None. Technique: High resolution axial imaging of the extracranial carotid and vertebral arteries were performed following administration of 75 ml IV Isovue 370. Coronal, sagittal and 3-D reconstructed images were provided. Findings: There is high-grade atherosclerotic irregular stenosis of the proximal right ICA just beyond the bifurcation with the stenosis greater than 8%. There is moderate atherosclerotic narrowing of the proximal left ICA just beyond the bifurcation. The right vertebral artery is significantly diminutive with origin atherosclerotic stenosis suspected. There is moderate atherosclerotic narrowing of the left vertebral origin. Mild atherosclerotic narrowing of the proximal low common carotid and left subclavian artery is present. Impression: High grade proximal right ICA atherosclerotic stenosis according to NASCET criteria. Moderate proximal left ICA stenosis. Diminutive right vertebral artery as described. Electronically Signed by Rj Cagle DO 02/10/2019 03:52 P
== END ==
LOC: M RAD 14:09
PROVIDERS: ATTEND Surgery Vascular Surgery
DX: I65.01 Occlusion and stenosis of right vertebral artery (principal); I65.23 Occlusion and stenosis of bilateral carotid arteries
CPT/HCPCS: 70498; 95810; Q9967

== ENCOUNTER → 2019-03-06 | Outpatient (CLI) | payer MEDICARE ==
[~2019-03-06] MED LIST changes: -ISOVUE-370 76% 100ML VIAL (Q9967) As Ordered ONE
--- NOTE | 2019-03-10 14:21 | SLEEPCENT ---
DATE OF STUDY: 03/06/2019 ORDERED BY: Ernesto Lima DO Nocturnal polysomnography was performed for the titration of pressure therapy in this patient with obstructive sleep apnea syndrome, apnea-hypopnea index of 26.5. For testing, the patient was fit with a [employer] Simplus full-face mask of large size, 4 cm of water pressure were applied to the circuit, and the lights were extinguished. 8 hours and 21 minutes of data were reviewed. There were 344 minutes of sleep identified. Sleep latency was normal at 24.5 minutes. Rapid eye movement (REM) latency was normal at 116 minutes. Sleep architecture was fair with some fragmentation. Two REM cycles were noted. Overall sleep efficiency 69.8%. The patient's electrocardiogram showed sinus rhythm with occasional ectopy. Average heart rate 66 beats per minute. EEG showed normal waveforms for awake and sleep stages. Persistence of respiratory events prompted an increase in continuous positive airway pressure (CPAP) to the optimal pressure of 12 cm, with which the patient slept through REM without respiratory event or oxygen desaturation. Some limb activity was appreciated once again on this study. The limb movement arousal index on this occasion was 10.6. IMPRESSION: Obstructive sleep apnea syndrome (G47.33). RECOMMENDATION: Nightly use of pressure therapy 12 cm of water.
== END ==
LOC: M SLEEP 19:18
PROVIDERS: ATTEND Internal Medicine Pulmonary Disease
DX: G47.33 Obstructive sleep apnea (adult) (pediatric) (principal)

== ENCOUNTER → 2019-04-21 | Outpatient (CLI) | payer MEDICARE ==
[2019-04-21 10:14] LABS: CALCIUM LEVEL 9.1 MG/DL (8.8-10.2); CREATININE FOR GFR 1.26 MG/DL (0.70-1.30); GLOMERULAR FILTRATION RATE 59.2 (>42); POTASSIUM SERUM 4.6 MEQ/L (3.5-5.1)
== END ==
LOC: M WUC 08:30
PROVIDERS: ATTEND Physician Assistant
DX: I27.81 Cor pulmonale (chronic) (principal)

== ENCOUNTER → 2019-07-28 | Outpatient (CLI) | payer MEDICARE ==
[~2019-07-28] MED LIST changes: -LISI-1046 PO; +LISI2.5T2 PO
[2019-07-28 11:42] LABS: CALCIUM LEVEL 8.1 MG/DL (8.8-10.2); CREATININE FOR GFR 1.28 MG/DL (0.70-1.30); GLOMERULAR FILTRATION RATE 58.2 (>42); POTASSIUM SERUM 4.6 MEQ/L (3.5-5.1)
== END ==
LOC: M PLALAB 08:03
PROVIDERS: ATTEND Physician Assistant
DX: I27.81 Cor pulmonale (chronic) (principal)

== ENCOUNTER → 2019-08-15 | Outpatient (CLI) | payer MEDICARE ==
[~2019-08-15] MED LIST changes: +ARNU1INH3 INH; +ARNU1INH3 PO; +CLOP75TA2 PO; +E-Z-GAS II EFFERVESCENT PACKET (SODIUM BICARB./CITRIC ACID/SIMETHICONE) As Ordered ONE; +E-Z-HD 98% w/w 340GM SUSP BTL As Ordered ONE; +E-Z-PAQUE 96% w/w SUSP 176GM BTL As Ordered ONE
--- NOTE | 2019-08-18 13:37 | REP ---
Esophagram The procedure was performed under the direct supervision of Dr. Felix. The images were reviewed with Dr. Felix. A single view PA chest x-ray is submitted as a scouts film. Chronic stable changes compared to a previous chest x-ray performed on 09/10/2018. Liquid barium and gas producing granules were given in the erect position as well as liquid barium in the prone oblique positions in order to perform a double contrast esophagram examination. The oral and pharyngeal stages of deglutition are unremarkable. Esophageal transport is prompt and efficient and there is no esophagitis, stricture, mucosal ring or hiatal hernia. Gastroesophageal reflux is not demonstrated on this examination. Impression: Essentially unremarkable double contrast esophagram examination. One minute of fluoro time was utilized for this procedure. Electronically Signed by JOHN Dockery 08/15/2019 03:24 P Electronically Signed by Garcia Felix MD 08/18/2019 01:27 P
== END ==
LOC: M RAD 08:36
PROVIDERS: ATTEND Surgery
DX: R13.10 Dysphagia, unspecified (principal)

== ENCOUNTER → 2019-08-18 | Outpatient (CLI) | payer MEDICARE ==
[~2019-08-18] MED LIST changes: -E-Z-GAS II EFFERVESCENT PACKET (SODIUM BICARB./CITRIC ACID/SIMETHICONE) As Ordered ONE; -E-Z-HD 98% w/w 340GM SUSP BTL As Ordered ONE; -E-Z-PAQUE 96% w/w SUSP 176GM BTL As Ordered ONE
== END ==
LOC: M LABSMTC 12:46
PROVIDERS: ATTEND Anesthesiology
DX: Z01.818 Encounter for other preprocedural examination (principal); Z11.59 Encounter for screening for other viral diseases
CPT/HCPCS: C9803; U0003

== ENCOUNTER 2019-08-21 15:29 | Day surgery (SDC) | payer MEDICARE ==
[~2019-08-21] VITALS: Ht 170.2 cm; Wt 95.0 kg
[~2019-08-21 15:29] MED LIST changes: +**UNRESOLVED NON-FORMULARY MED ORDER XX SCH; -ARNU1INH3 PO; +LR 1,000 ML IV ONE; +ceFAZolin SOD 2 GM in IV 1 EA IV ONE
[2019-08-21] MEDS ORDERED: fentaNYL 100 MCG/2 ML INJECTION (J3010) As Ordered ONE (15:48)
[2019-08-21] MEDS ORDERED: propofoL 200 MG/20 ML VIAL As Ordered ONE ×2 (15:49→18:00)
[2019-08-21] MEDS ORDERED: LIDOCAINE 2% 100MG/5ML SDV (FOR ANES.) As Ordered ONE (15:51)
[2019-08-21] MEDS ORDERED: LIDOCAINE 1% SDV 30ML VIAL As Ordered ONE (16:27)
[2019-08-21] MEDS ORDERED: MUPIROCIN 2% OINT 22 GM TUBE As Ordered ONE (16:27)
[2019-08-21] MEDS ORDERED: ISOVUE-300 61% 50ML VIAL As Ordered ONE (16:28)
[2019-08-21] MEDS ORDERED: VANCOMYCIN 1000MG/20ML VIAL As Ordered ONE (16:28)
[2019-08-21] MEDS ORDERED: ARNU1INH3 PO (16:48)
[2019-08-21] MEDS ORDERED: ePHEDrine SULFATE 25 MG/5 ML(5MG/ML) SYRINGE As Ordered ONE (17:13)
[2019-08-21] MEDS ORDERED: PHENYLephrine HCL 500 MCG/5 ML (100MCG/ML) SYRINGE (J2370) As Ordered ONE (17:32)
[2019-08-21] MEDS ORDERED: fentaNYL 100 MCG/2 ML INJECTION (J3010) IV PRN ×2 (19:45→21:00)
[2019-08-21] MEDS ORDERED: PERCOCET 5MG/325MG TAB PO PRN ×2 (19:45→21:00)
[2019-08-21] MEDS ORDERED: LR 1,000 ML IV SCH ×2 (19:45→21:00)
[2019-08-21] MEDS ORDERED: ONDANSETRON 4MG/2ML VIAL IV PRN ×2 (19:45→21:00)
[2019-08-21 20:00] VITALS: BP 140/63
[2019-08-21] MEDS ORDERED: NITROGLYCERIN 0.4 MG SUBL TABLET SL PRN (20:00)
[2019-08-21] MEDS ORDERED: ACETAMINOPHEN TAB 650MG DOSE (2X325MG) PO PRN (20:00)
[2019-08-21] MEDS ORDERED: LEVALBUTEROL 1.25 MG/0.5 ML CONCENTRATE NEB NEB PRN (20:00)
[2019-08-21] MEDS ORDERED: LEVALBUTEROL HFA 45MCG/ACT 15 GM INHALER INH PRN (20:15)
--- NOTE | 2019-08-21 20:24 | RO ---
DATE OF PROCEDURE: 08/21/2019 PREPROCEDURE DIAGNOSIS: Mobitz type II second-degree atrioventricular (AV) block. POSTPROCEDURE DIAGNOSIS: Mobitz type II second-degree atrioventricular block. FINDINGS: Mobitz type II second-degree atrioventricular block. PROCEDURE PERFORMED: Implantation of Medtronic dual-chamber pacemaker. SURGEON: Ernesto Hood MD PROJECT PRODUCTION ENGINEER: None. ANESTHESIA: Lidocaine 1% local/monitored anesthetic care. No specimens. Estimated blood loss: 10 mL. No blood products replaced. No drains. No complications. DESCRIPTION OF PROCEDURE: The patient was prepped and draped over the left pectoral region. 3M Ioban film was applied. A left subclavian venogram was performed to help localize the left subclavian vein in real time using a micropuncture needle by percutaneous technique. This was then guidewire exchanged for a guidewire that came with one of the 7-Surinamese sheaths. Next, an incision line approximately 2-1/2 inches in length was made approximately parallel to the left clavicle 1 cm below the entry site of the guidewire. The PEAK PlasmaBlade was used to get down to and through the fibrous Alistair's fascia. I then formed the pacemaker pocket using blunt dissection using two fingers to separate the prepectoral fascia from the Alistair's fascia. Next, the guidewire was pulled through the skin into the incision site. Next, I took another micropuncture needle and used the first guidewire as a fluoroscopic marker and entered into the left subclavian vein more lateral to the first guidewire, and this was then guidewire exchanged for the guidewire that came with the other 7-Surinamese sheath. A 7-Surinamese sheath with introducer was placed over the more lateral of the guidewires and was used for vein access for the right ventricle lead. The right ventricle lead was placed in the right ventricle apex position and secured with a total of eight turns. This position was found to be electrically and anatomically satisfactory and no diaphragm stimulation could be palpated on either side at 8 volts high output pacing. The sheath was then broken apart and removed and the ventricle lead was secured to the pectoral muscle using the tie-down sleeve using two individual sutures consisting of #0 Ethibond to secure it to the pectoral muscle. Next, another 7-Surinamese sheath with introducer was placed over the more medial of the guidewires and was used for vein access for the right atrial lead. Unfortunately, the 7-Surinamese sheath kinked and would not allow passage of the right atrial lead. I then guidewire exchanged this for an 8-Surinamese peel-away sheath with introducer. This was successful and allowed placement of the right atrial lead. The right atrial lead was placed into the right atrial appendage position where it was secured with a total of 10 turns using the help of a preformed J-stylet. This position was found to be electrically and anatomically satisfactory and no diaphragm stimulation could be palpated on either side at 8 volts high output pacing. The 8-Surinamese sheath was broken apart and peeled away. The atrial lead was then secured to the pectoral muscle using the supplied tie-down sleeve using two individual sutures consisting of #0 Ethibond. Another #0 Ethibond suture was then placed to the pectoral muscle to serve as the tie-down for the pacemaker pulse generator. The terminal pins of the ventricle lead and atrial lead were placed into their respective ports in the pacemaker pulse generator header and each one was secured by tightening the set screws with the hex screwdriver. The excess lead material was then placed below the pacemaker pulse generator and pulse generator on top. The pulse generator was then secured to the pectoral muscle with the previously placed #0 Ethibond suture. The deep layer was closed using individual sutures consisting of #2-0 Vicryl. A few additional #3-0 Vicryl sutures were used to help approximate the more superficial layer. The skin was then closed using corinne. The patient tolerated the procedure well without any immediate complications. The pacemaker pulse generator implanted was a Medtronic Kirwin XT DR JESSICA Santos, model W1DR01 with serial #[id number]. The right atrial lead implanted was a Medtronic, model 4076-52 cm with serial #[id number]. With the PSA analyzer in bipolar configuration, the right atrial lead showed a capture threshold of 0.5 volts at 0.4 ms with a lead impedance of 437 ohms with P wave amplitude of 1.3 mV. Device-based measurement showed P wave of 1.4 mV with lead impedance of 437 ohms and capture threshold of 0.75 volts at 0.4 ms. The ventricular lead was a Medtronic, model 4076-58 with serial #[id number]. PSA analyzer testing in bipolar configuration for the right ventricle lead showed capture threshold of 0.375 volts at 0.4 ms with a lead impedance of 684 ohms and R wave amplitude of 5.5 mV. Device-based testing for the right ventricle lead showed R waves of 6.3 mV with pace impedance of 646 ohms and capture threshold of 0.5 volts at 0.4 ms. MTDD
[2019-08-21] MEDS ORDERED: ATORVASTATIN 20 MG TAB PO SCH (21:00)
[2019-08-21] MEDS: ASCORBIC ACID 250 MG TAB PO SCH (21:17)
[2019-08-21 22:00] VITALS: O2SAT 100
[2019-08-21 23:00] VITALS: O2SAT 99
--- NOTE | 2019-08-21 23:35 | REP ---
C-ARM VIEWS CHEST: Multiple C-arm views of the chest are performed. There is a left dual-lead pacemaker, which appears to be in good position. Fluoroscopy time 9 minutes 49 seconds. Electronically Signed by Garcia Felix MD 08/26/2019 06:20 P
[2019-08-22] VITALS (11 sets, daily range): BP systolic 129–140; BP diastolic 60–70; O2SAT 97–99
--- NOTE | 2019-08-22 08:30 | REP ---
Single view chest: 08/21/2019. Indication: Postoperative assessment. Comparison: 07/17/2018. Findings: The lungs are clear. There is no pleural effusion or pneumothorax. Left-sided dual lead pacing device is present. The cardiac silhouette is within normal limits of size. Impression: No pneumothorax. Expected post procedural chest. Electronically Signed by Rj Cagle DO 08/22/2019 08:21 A
[2019-08-22] MEDS ORDERED: METOPROLOL SUCC *XL* 25MG TAB (TopROL *XL*) PO SCH (09:00)
[2019-08-22] MEDS ORDERED: LORATADINE 10 MG TAB PO SCH (09:00)
[2019-08-22] MEDS ORDERED: LIDOCAINE 5% (LIDODERM) PATCH TD SCH (09:00)
[2019-08-22] MEDS ORDERED: lisinopriL 5 MG TAB PO SCH (09:00)
[2019-08-22] MEDS ORDERED: ASPIRIN 81 MG ENTERIC TAB PO SCH (09:00)
[2019-08-22] MEDS ORDERED: CLOPIDOGREL 75 MG TAB PO SCH (09:00)
[2019-08-22] MEDS ORDERED: FUROSEMIDE 20 MG TAB PO SCH (09:00)
[2019-08-22] MEDS: ASCORBIC ACID 250 MG TAB PO SCH (09:50)
[2019-08-22] MEDS ORDERED: SLF 3 ML SYR IV PRN (11:15)
--- NOTE | 2019-08-22 13:28 | REP ---
CHEST, TWO VIEWS: Two views of the chest are performed and compared to prior study of 08/21/2019 and 10/28/2018. There are chronic fibrotic changes in each lung base with no acute infiltrate. Heart is normal in size. Mediastinal silhouette is unremarkable with mild calcification of the thoracic aorta. Left dual-lead pacemaker appears to be in good position. There are mild degenerative changes of the spine. A few mild compression deformities of mid thoracic vertebral bodies are stable. IMPRESSION: Left dual-lead pacemaker appears to be in good position with no acute pulmonary disease. Electronically Signed by Garcia Felix MD 08/26/2019 06:31 P
[2019-08-22] MEDS ORDERED: SLF 3 ML SYR IV SCH (14:00)
--- NOTE | 2019-08-25 21:00 | ECGEPIP ---
[facility] Test Date: 2019-08-21 Pat Name: ASHVIN ZEE Department: Room: [place] [address] Gender: Male Tire Specialist: ROWENA SENIOR : 1945 Requested By: Ernesto Hood Order Number: [id number] Reading MD: Albert Sewell Measurements Intervals [place] Rate: 86 P: 170 IL: 232 QRS: 55 QRSD: 83 T: -5 QT: 391 QTc: 469 Interpretive Statements Atrial-paced complexes Ventricular tracking Nonspecific ST-T wave abnormalities Compared to prior tracing of 09/29/2018, pacemaker activity is new Electronically Signed on 08-25-2019 21:00:28 EDT by Albert Sewell
== END 2019-08-22 16:47 | disposition home or self-care (01) ==
LOC: M SDC 15:29 → UNDOADMIN 19:54 → M PCU 19:54 → M SDC 08-22 16:47 → UNDODISIN 08-22 16:47
PROVIDERS: ATTEND Internal Medicine Cardiovascular Disease
DX: I44.1 Atrioventricular block, second degree (principal); I25.10 Atherosclerotic heart disease of native coronary artery without angina pectoris; I10 Essential (primary) hypertension; E78.5 Hyperlipidemia, unspecified; G47.30 Sleep apnea, unspecified; I25.2 Old myocardial infarction; Z79.02 Long term (current) use of antithrombotics/antiplatelets; Z79.899 Other long term (current) drug therapy; Z88.8 Allergy status to other drugs, medicaments and biological substances; Z01.818 Encounter for other preprocedural examination; Z11.59 Encounter for screening for other viral diseases
CPT/HCPCS: 33208; 71045; 71046; 76000; 93005; C1785; C1898; C9803; J0690; J2370; J3010; Q9967; U0003

== ENCOUNTER → 2019-09-01 | Outpatient (CLI) | payer MEDICARE ==
[~2019-09-01] MED LIST changes: -**UNRESOLVED NON-FORMULARY MED ORDER XX SCH; +ARNU1INH3 PO; +ATOR80TA59 PO; +DOCU100C16 PO; +FERR325T16 PO; -LR 1,000 ML IV ONE; -ceFAZolin SOD 2 GM in IV 1 EA IV ONE
== END ==
LOC: M LABSMTC 10:35
PROVIDERS: ATTEND Anesthesiology
DX: Z03.818 Encounter for observation for suspected exposure to other biological agents ruled out (principal); Z11.59 Encounter for screening for other viral diseases
CPT/HCPCS: C9803; U0003

== ENCOUNTER 2019-09-04 11:51 | Day surgery (SDC) | payer MEDICARE ==
[~2019-09-04] VITALS: Ht 170.2 cm; Wt 93.0 kg
[~2019-09-04 11:51] MED LIST changes: -ATOR80TA59 PO; -DOCU100C16 PO; -FERR325T16 PO; +NS 1,000 ML IV ONE
[2019-09-04] MEDS ORDERED: LIDOCAINE 2% 100MG/5ML SDV (FOR ANES.) As Ordered ONE (12:11)
[2019-09-04] MEDS ORDERED: propofoL 200 MG/20 ML VIAL As Ordered ONE (12:47)
[2019-09-04] MEDS ORDERED: fentaNYL 100 MCG/2 ML INJECTION (J3010) As Ordered ONE (13:21)
--- NOTE | 2019-09-04 13:31 | ROOR ---
Patient Name: Loy Rodriguez Procedure Date: 09/04/2019 1:13 PM Date of : 1945 Age: 74 Room: [facility], [facility]IN [facility] Gender: Male Note Status: Finalized Procedure: Upper GI endoscopy Indications: Dysphagia Providers: Adiel Suresh Jr, MD Referring MD: Albert Sewell MD Requesting Provider: Medicines: Propofol per Anesthesia Complications: No immediate complications. Procedure: Pre-Anesthesia Assessment: - Prior to the procedure, a History and Physical was performed, and patient medications and allergies were reviewed. The patient is competent. The risks and benefits of the procedure and the sedation options and risks were discussed with the patient. All questions were answered and informed consent was obtained. Patient identification and proposed procedure were verified by the physician and the nurse in the pre-procedure area and in the procedure room. Mental Status Examination: alert and oriented. Airway Examination: normal oropharyngeal airway and neck mobility. Respiratory Examination: clear to auscultation. CV Examination: normal. ASA Grade Assessment: III - A patient with severe systemic disease. After reviewing the risks and benefits, the patient was deemed in satisfactory condition to undergo the procedure. The anesthesia plan was to use moderate sedation / analgesia (conscious sedation). Immediately prior to administration of medications, the patient was re-assessed for adequacy to receive sedatives. The heart rate, respiratory rate, oxygen saturations, blood pressure, adequacy of pulmonary ventilation, and response to care were monitored throughout the procedure. The physical status of the patient was re-assessed after the procedure. The Endoscope was introduced through the mouth, and advanced to the second part of duodenum. The upper GI endoscopy was accomplished without difficulty. The patient tolerated the procedure well. Findings: The upper third of the esophagus, middle third of the esophagus and lower third of the esophagus were normal. The gastroesophageal junction, cardia, gastric fundus, gastric body, gastric antrum, prepyloric region of the stomach and pylorus were normal. Patchy mildly erythematous mucosa without active bleeding and with no stigmata of bleeding was found in the duodenal bulb. The first portion of the duodenum and second portion of the duodenum were normal. Impression: - Normal upper third of esophagus, middle third of esophagus and lower third of esophagus. - Normal gastroesophageal junction, cardia, gastric fundus, gastric body, antrum, prepyloric region of the stomach and pylorus. - Erythematous duodenopathy. - Normal first portion of the duodenum and second portion of the duodenum. - No specimens collected. Recommendation: - Discharge patient to home (ambulatory). - Return to my office in 2 weeks. Adiel Suresh MD Adiel Suresh Jr, MD 09/04/2019 1:31:14 PM Electronically signed by Adiel Suresh Jr, MD Number of Addenda: 0 Note Initiated On: 09/04/2019 1:13 PM Estimated Blood Loss: Estimated blood loss: none.
[2019-09-04] MEDS ORDERED: PHENYLephrine HCL 500 MCG/5 ML (100MCG/ML) SYRINGE (J2370) As Ordered ONE (13:36)
--- NOTE | 2019-09-04 13:47 | ROOR ---
Patient Name: Loy Rodriguez Procedure Date: 09/04/2019 1:14 PM Date of : 1945 Age: 74 Room: [facility] Gender: Male Note Status: Finalized Procedure: Colonoscopy Indications: High risk colon cancer surveillance: Personal history of colonic polyps Providers: Adiel Suresh Jr, MD Referring MD: Albert Sewell MD Requesting Provider: Medicines: Propofol per Anesthesia Complications: No immediate complications. Procedure: Pre-Anesthesia Assessment: - Prior to the procedure, a History and Physical was performed, and patient medications and allergies were reviewed. The patient is competent. The risks and benefits of the procedure and the sedation options and risks were discussed with the patient. All questions were answered and informed consent was obtained. Patient identification and proposed procedure were verified by the physician and the nurse in the pre-procedure area and in the procedure room. Mental Status Examination: alert and oriented. Airway Examination: normal oropharyngeal airway and neck mobility. Respiratory Examination: clear to auscultation. CV Examination: normal. ASA Grade Assessment: II - A patient with mild systemic disease. After reviewing the risks and benefits, the patient was deemed in satisfactory condition to undergo the procedure. The anesthesia plan was to use moderate sedation / analgesia (conscious sedation). Immediately prior to administration of medications, the patient was re-assessed for adequacy to receive sedatives. The heart rate, respiratory rate, oxygen saturations, blood pressure, adequacy of pulmonary ventilation, and response to care were monitored throughout the procedure. The physical status of the patient was re-assessed after the procedure. The Colonoscope was introduced through the anus and advanced to the cecum, identified by appendiceal orifice and ileocecal valve. The colonoscopy was performed without difficulty. The patient tolerated the procedure well. The quality of the bowel preparation was adequate. Findings: The rectum, recto-sigmoid colon, sigmoid colon, descending colon, transverse colon, ascending colon, cecum, appendiceal orifice and ileocecal valve appeared normal. Non-bleeding external and internal hemorrhoids were found during endoscopy. The hemorrhoids were Grade II (internal hemorrhoids that prolapse but reduce spontaneously) and Grade III (internal hemorrhoids that prolapse but require manual reduction). Impression: - The rectum, recto-sigmoid colon, sigmoid colon, descending colon, transverse colon, ascending colon, cecum, appendiceal orifice and ileocecal valve are normal. - Non-bleeding external and internal hemorrhoids. - No specimens collected. Recommendation: - Discharge patient to home (ambulatory). - Repeat colonoscopy is not recommended due to current age (66 years or older) for screening purposes. Adiel Suresh MD Adiel Suresh Jr, MD 09/04/2019 1:47:01 PM Electronically signed by Adiel Suresh Jr, MD Number of Addenda: 0 Note Initiated On: 09/04/2019 1:14 PM Estimated Blood Loss: Estimated blood loss: none.
[2019-09-04] MEDS ORDERED: SIMETHICONE 80 MG CHEW TAB As Ordered ONE (14:03)
[2019-09-04] MEDS ORDERED: SIMETHICONE 80 MG CHEW TAB PO ONE (14:45)
[2019-09-04 15:05] VITALS: BP 121/60
== END 2019-09-04 15:33 | disposition home or self-care (01) ==
LOC: M OPP 11:51
PROVIDERS: ATTEND Surgery
DX: Z12.11 Encounter for screening for malignant neoplasm of colon (principal); Z86.010 Personal history of colon polyps; K64.2 Third degree hemorrhoids; K31.89 Other diseases of stomach and duodenum; R13.10 Dysphagia, unspecified; I25.2 Old myocardial infarction; Z95.0 Presence of cardiac pacemaker; Z79.899 Other long term (current) drug therapy; Z88.8 Allergy status to other drugs, medicaments and biological substances; Z87.891 Personal history of nicotine dependence
CPT/HCPCS: 43235; G0105; J2370; J3010

== ENCOUNTER → 2019-11-03 | Outpatient (CLI) | payer MEDICARE ==
[~2019-11-03] MED LIST changes: +ATOR80TA59 PO; +DOCU100C16 PO; +FERR325T16 PO; -NS 1,000 ML IV ONE
[2019-11-03 14:10] LABS: CALCIUM LEVEL 8.6 MG/DL (8.8-10.2); CREATININE FOR GFR 1.63 MG/DL (0.70-1.30); MAGNESIUM LEVEL 2.2 MG/DL (1.8-2.4); POTASSIUM SERUM 4.5 MEQ/L (3.5-5.1)
== END ==
LOC: M PLALAB 10:31
PROVIDERS: ATTEND Physician Assistant
DX: I27.81 Cor pulmonale (chronic) (principal); E83.42 Hypomagnesemia

== ENCOUNTER 2019-12-02 13:11 | Inpatient (IN) | payer MEDICARE ==
[~2019-12-02] VITALS: Ht 165.1 cm; Wt 99.2 kg
[2019-12-02] VITALS (11 sets, daily range): BP systolic 108–137; BP diastolic 59–88
[~2019-12-02 13:11] MED LIST changes: -ATOR80TA59 PO; -DOCU100C16 PO; -FERR325T16 PO
[2019-12-02] MEDS ORDERED: FURO40TA2 PO (13:28)
[2019-12-02] MEDS ORDERED: ATOR80TA59 PO (13:28)
--- NOTE | 2019-12-02 14:03 | REPVR ---
PROCEDURE INFORMATION: Exam: XR Chest, 1 View Exam date and time: 12/02/2019 1:45 PM Age: 74 years old Clinical indication: Shortness of breath; Additional info: SOB TECHNIQUE: Imaging protocol: XR of the chest Views: Frontal portable sitting upright view of the chest. COMPARISON: CR Chest, 2 view PA, Lat 08/22/2019 7:53 AM FINDINGS: Tubes, catheters and devices: EKG leads are present overlying the chest. Lungs: Left lateral basilar infiltrate. The pulmonary vasculature is normal. Mild lateral left mid lung zone subsegmental atelectasis. Pleural space: Minimal left pleural effusion. No pneumothorax. Heart/Mediastinum: The heart is normal in size and contour. Vasculature: Mild aortic arch atherosclerotic calcification without ectasia. A dual lead left subclavian permanent pacemaker is present. The right atrial and right ventricular leads appear to be in good position. Bones/joints: Unremarkable. IMPRESSION: 1. Left lateral basilar infiltrate. Pneumonitis is difficult to exclude. Clinical correlation is recommended. 2. Minimal left pleural effusion. Electronically signed by: Tyrese Shah On 12/02/2019 14:03:28 PM
[2019-12-02 14:07] LABS: INR 0.94; PROTHROMBIN TIME 12.8 SECONDS (12.5-14.3)
[2019-12-02 14:28] LABS: CK-MB VALUE MASS 2.6 NG/ML (<3.6); CPK CREATINE PHOSPHOKINASE 85 U/L (39-308); MB/CK RELATIVE INDEX 3.06 (< OR =4); TROPONIN I < 0.02 NG/ML (< 0.10)
[2019-12-02] MEDS ORDERED: LEVA12INH INH (14:59)
[2019-12-02 15:15] LABS: ALBUMIN 3.7 GM/DL (3.2-5.2); ALT/SGPT 20 U/L (12-78); BILIRUBIN,TOTAL 0.3 MG/DL (0.2-1.0); BLOOD UREA NITROGEN 32 MG/DL (7-18); CALCIUM LEVEL 8.8 MG/DL (8.8-10.2); CARBON DIOXIDE LEVEL 27 MEQ/L (21-32); CHLORIDE LEVEL 107 MEQ/L (98-107); CREATININE FOR GFR 1.47 MG/DL (0.70-1.30); GLOMERULAR FILTRATION RATE 49.6 (>42); GLUCOSE, FASTING 110 MG/DL (70-100); POTASSIUM SERUM 4.5 MEQ/L (3.5-5.1); SODIUM LEVEL 140 MEQ/L (136-145); TOTAL PROTEIN 6.5 GM/DL (6.4-8.2)
[2019-12-02 16:40] LABS: BILIRUBIN,DIRECT 0.1 MG/DL (0.0-0.2); FERRITIN 5 NG/ML (26-388); IRON (FE) 27 UG/DL (65-175); LDH LACTATE DEHYDROGENASE 162 U/L (87-241); PERCENT SATURATION 5.7 % (19.7-50.0); TOTAL IRON BINDING CAPACITY 477 UG/DL (250-450)
[2019-12-02] MEDS ORDERED: FUROSEMIDE 100MG/10ML VIAL (J1940) IV ONE (16:45)
[2019-12-02] MEDS ORDERED: LEVALBUTEROL 1.25 MG/0.5 ML CONCENTRATE NEB INH PRN (16:45)
[2019-12-02 17:07] LABS: FOLATE 9.7 NG/ML; VITAMIN B12 LEVEL 671 PG/ML
--- NOTE | 2019-12-02 17:25 | HPEPDOC ---
General Date of Admission Dec 02, 2019 at 16:26 Date of Service: Dec 02, 2019 Chief Complaint The patient is a 74-year-old male admitted with a reason for visit of Symptomtic Anemia. History of Present Illness 74 year old male was sent from his PMD's office for abnormal lab work. He went for a routine visit yesterday lab work was done and today he was found to be severely anemic so was instructed to come to the ED. He complains of gradually increasing exertional dyspnea over the past 3 months and over the past month he is hardly able to get out of bed and walk. He has not been able to go out of the house due to SOB. He has also noticed swelling of his legs which he reports is a little better after medications. He complains of palpitations whenever he starts walking. He complains of generalized weakness and fatigue. He denies any black stool or any bright red blood per rectum. He reports had EGD and colonoscopy this summer. Does not report any michelle bleeding from anywhere. He uses a CPAP at night but does not use any oxygen. He had a pacemaker placed this year. In the ED he was found to have a Hb of 6.8. Guaic was negative today in ED. He was admitted for symptomatic anemia Home Medications Scheduled Aspirin (Aspirin EC) 81 Mg Tab, 81 MG PO QHS, (Reported) Atorvastatin Calcium (Atorvastatin Calcium) 80 Mg Tablet, 80 MG PO QHS, (Reported) Clopidogrel Bisulfate (Clopidogrel) 75 Mg Tablet, 75 MG PO DAILY, (Reported) Docusate Sodium (Docusate Sodium) 100 Mg Capsule, 100 MG PO BID Ferrous Gluconate (Ferrous Gluconate) 324 Mg Tablet, 1 TAB PO DAILY for iron Fluticasone Furoate (Arnuity Ellipta) 200 Mcg Blst.w.dev, 200 MCG INH DAILY, (Reported) Levalbuterol Hydrochloride (Xopenex Concentrate) 1.25 Mg/0.5 Ml Vial.neb, 1.25 MG INH DAILY, (Reported) Lisinopril (Lisinopril) 2.5 Mg Tablet, 2.5 MG PO QHS, (Reported) Loratadine (Loratadine) 10 Mg Tablet, 10 MG PO DAILY, (Reported) Metoprolol Succinate (Metoprolol Succinate) 25 Mg Tab, 25 MG PO QHS, (Reported) Umeclidinium Brm/Vilanterol Tr (Anoro Ellipta 62.5-25 Mcg INH) 1 Aer Aer, 1 PUFF DAILY, (Reported) Scheduled PRN Furosemide (Furosemide) 40 Mg Tablet, 60 MG PO DAILY PRN for EDEMA, (Reported) Levalbuterol Hydrochloride (Xopenex Hfa) 45 Mcg/Act Aer, 2 PUFF INH Q4H PRN for SOB/WHEEZING, (Reported) Levalbuterol Hydrochloride (Xopenex Concentrate) 1.25 Mg/0.5 Ml Neb, 1.25 MG INH QID PRN for SOB/WHEEZING, (Reported) Lidocaine (Lidoderm) 5 % Dis, 1 PATCH TD DAILY PRN for BACK PAIN, (Reported) Nitroglycerin (Nitroglycerin) 0.4 Mg Sub, 0.4 MG SL Q5MP PRN for CHEST PAIN, (Reported) Allergies Coded Allergies: varenicline (Verified Adverse Reaction, Mild, nightmares, 08/20/19) Past Medical History Medical History Mobitz Type 2 block s/p pacemaker in 08/2019 CAD (CORONARY ARTERY DISEASE) s/p AMI and SUBSEQUENT RCA ANGIOPLASTY IN FEBRUARY 2006. HIS LAST STRESS TEST IN MARCH 2017 DEMONSTRATED A LEFT VENTRICULAR EJEC TION FRACTION OF 74%. HYPERTENSION CHRONIC OBSTRUCTIVE PULMONARY DISEASE, Chronic right heart failure/ corpulmonale JENNI on CPAP HISTORY OF ADENOMATOUS POLYP OF COLON CHRONIC BACK PAIN and Neck pain LUNG NODULE stable in CT scan followed by pulmonary PAD : RIGHT VERTEBRAL artery OCCLUSION AND ULCERATED PLAQUE OF THE PROXIMAL LEFT SUBCLAVIAN following with vascular surgeon in [place] Dr Gutiérrez. DIVERTICULOSIS HEMORRHOIDS Obesity CKD stage 3 Macrocytosis Surgical History PACEMAKER in 08/2019 EGD and COLONOSCOPY in 08/2019 LUMBAR LAMINECTOMY AFTER INJURED NECK AND BACK 2002, CORONARY STENT PLACED 2005, COLONOSCOPY 03/2010, COLONOSCOPY 08/2013, BILATERAL CATARACT EXTRACTION-DR. ISSA 08/16/2017, VASECTOMY IN HIS 30S, TONSILLECTOMY IN CHILDHOOD, ADENOIDECTOMY Family History FATHER AGE 72 OF COMPLICATIONS OF DIABETES. MOTHER AGE 74 OF CAD. ONE SISTER OF HEART DISEASE, BREAST CANCER Social History * Smoker: current smoker A-FIB/CHADSVASC A-FIB History Current/History of A-Fib/PAF?: No Review of Systems Constitutional: Reports: Weakness, Fatigue; Denies: Chills, Fever, Night Sweats Eyes: Denies: Pain, Vision change ENT: Denies: Head Aches, Ear Pain, Dysphagia Skin: Denies: Rash, Lesions, Breakdown Pulmonary: Reports: Dyspnea Cardiovascular: Reports: Palpitations, Edema Gastrointestinal: Denies: Nausea, Vomiting, Abdominal Pain, Diarrhea Genitourinary: Denies: Dysuria, Frequency, Incontinence, Retention Hematologic: Denies: Bruising, Bleeding Excessively Musculoskeletal: Reports: Neck Pain, Back Pain Physical Examination General Exam: Positive: Alert, Cooperative, No Acute Distress Eye Exam: Positive: PERRLA, Conjunctiva & lids normal, EOMI; Negative: Sclera icteric ENT Exam: Positive: Atraumatic, Mucous membr. moist/pink, Pharynx Normal Neck Exam: Positive: Supple; Negative: JVD, thyromegaly Chest Exam: Positive: Wheezing, Diminished (at the bases) Heart Exam: Positive: Rate Normal, Regular Rhythm, Normal S1, Normal S2; Negative: Murmurs, Rubs Telemetry: Positive: No significant arrhythmia Abdomen Exam: Positive: Normal bowel sounds, Soft, Other (obese); Negative: Tenderness Extremity Exam: Positive: Edema; Negative: Clubbing, Cyanosis Skin Exam: Positive: Nl turgor and temperature; Negative: Breakdown, Lesion Neuro Exam: Positive: Normal Speech, Strength at 5/5 X4 ext, Normal Tone, Sensation Intact Psych Exam: Positive: Memory Intact, Oriented x 3 Vital Signs Vital Signs Date Time Temp Pulse Resp B/P (MAP) Pulse Ox O2 Delivery O2 Flow Rate FiO2 12/02/19 16:39 97.6 69 18 131/69 100 Nasal Cannula 2.0 Laboratory Data Labs 24H Laboratory Tests 2 12/02/19 13:43: Reticulocyte # (auto) 51.3, Percent Reticulocyte Count 1.8H, Reticulocyte Hemoglobin Equivalent 21.3L, Prothrombin Time 12.8, Prothromb Time International Ratio 0.94, Anion Gap 6L, Glomerular Filtration Rate 49.6, Calcium Level 8.8, Iron Level 27L, Total Iron Binding Capacity 477H, Transferrin % Saturation 5.7L, Ferritin 5L, Total Bilirubin 0.3, Direct Bilirubin 0.1, Aspartate Amino Transf (AST/SGOT) 15, Alanine Aminotransferase (ALT/SGPT) 20, Alkaline Phosphatase 119H, Lactate Dehydrogenase 162, Total Creatine Kinase 85, Creatine Kinase MB 2.6, Creatine Kinase MB Relative Index 3.06, Troponin I < 0.02, Total Protein 6.5, Albumin 3.7, Albumin/Globulin Ratio 1.3 12/02/19 15:10: Lactic Acid Level 1.8 CBC/BMP Laboratory Tests 12/02/19 13:43 Microbiology Microbiology 12/02/19 Blood Culture, Received Pending Assessment/Plan 74 year old male was sent from his PMD's office for abnormal lab work. He went for a routine visit yesterday lab work was done and today he was found to be severely anemic so was instructed to come to the ED. He complains of gradually increasing exertional dyspnea over the past 3 months and over the past month he is hardly able to get out of bed and walk. He has not been able to go out of the house due to SOB. He has also noticed swelling of his legs which he reports is a little better after medications. He complains of palpitations whenever he starts walking. He complains of generalized weakness and fatigue. He denies any black stool or any bright red blood per rectum. He reports had EGD and colonoscopy this summer. Does not report any michelle bleeding from anywhere. He uses a CPAP at night but does not use any oxygen. He had a pacemaker placed this year. In the ED he was found to have a Hb of 6.8. He was admitted for symptomatic anemia Symptomatic anemia severe iron deficiency will give 2 units of PRBC with lasix in between Had EGD and colonoscopy in , No abnormality will send stool for occult blood Will give venofer iv prior to discharge. Vit b12 and folate ordered. SPEP ordered. CAD s/p angioplasty continue statin, beta praful, asa. COPD/Corpulmonale continue symbicort, spiriva lev albuterol Acute high output CHF with preserved EF due to anemia IV lasix Chronic right heart failure Lasix IV JENNI CPAP Hypertension continue home meds H/o Mobitx type [address]. Plan / VTE VTE Prophylaxis Ordered?: Yes MARA FONG MD Dec 02, 2019 17:25
[2019-12-02] MEDS: DOCUSATE SODIUM 100 MG CAP PO SCH (20:17)
[2019-12-02] MEDS ORDERED: ATORVASTATIN 20 MG TAB PO SCH (21:00)
[2019-12-02] MEDS ORDERED: ASPIRIN 81 MG ENTERIC TAB PO SCH (21:00)
[2019-12-02] MEDS ORDERED: METOPROLOL SUCC *XL* 25MG TAB (TopROL *XL*) PO SCH (21:00)
[2019-12-02] MEDS ORDERED: LISINOPRIL *2.5 MG* TAB PO SCH (21:00)
[2019-12-02] MEDS: SYMBICORT 160/4.5MCG INHALER 6GM INH SCH (21:25)
--- NOTE | 2019-12-02 23:16 | ECGEPIP ---
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
[2019-12-03] VITALS (10 sets, daily range): BP systolic 113–131; BP diastolic 59–70
[2019-12-03] MEDS: FUROSEMIDE 40MG/4ML VIAL (J1940) IV SCH ×2 (02:21→11:59)
[2019-12-03 07:04] LABS: BASO % 0.6 % (0.0-1.0); EOS # 0.2 10^3/uL (0.0-0.5); EOS % 3.1 % (0.0-3.0); HEMATOCRIT 27.1 % (42.0-52.0); HEMOGLOBIN 8.3 g/dl (13.5-17.5); LYMPH # 0.8 10^3/uL (1.5-5.0); LYMPH % 11.4 % (24.0-44.0); MEAN CORPUSCULAR HEMOGLOBIN 24.7 pg (27.0-33.0); MEAN CORPUSCULAR HGB CONC 30.6 g/dl (32.0-36.5); MEAN CORPUSCULAR VOLUME 80.7 fl (80.0-96.0); MONO # 0.7 10^3/uL (0.0-0.8); MONO % 10.1 % (0.0-5.0); NEUTROPHILS # 5.2 10^3/uL (1.5-8.5); NEUTROPHILS % 73.7 % (36.0-66.0); PLATELET COUNT, AUTOMATED 290 10^3/uL (150-450); RED BLOOD COUNT 3.36 10^6/uL (4.30-6.10)
[2019-12-03 07:29] LABS: CALCIUM LEVEL 8.5 MG/DL (8.8-10.2); CREATININE FOR GFR 1.52 MG/DL (0.70-1.30); GLOMERULAR FILTRATION RATE 47.7 (>42); POTASSIUM SERUM 4.1 MEQ/L (3.5-5.1)
[2019-12-03] MEDS: SYMBICORT 160/4.5MCG INHALER 6GM INH SCH (07:31)
[2019-12-03] MEDS ORDERED: TIOTROPIUM INHALER/CAPSULE (SPIRIVA) INH SCH (08:00)
[2019-12-03] MEDS: DOCUSATE SODIUM 100 MG CAP PO SCH (08:15)
[2019-12-03] MEDS ORDERED: CLOPIDOGREL 75 MG TAB PO SCH (09:00)
[2019-12-03] MEDS ORDERED: FERR325T16 PO (11:02)
[2019-12-03] MEDS ORDERED: DOCU100C16 PO (11:03)
[2019-12-03] MEDS ORDERED: IRON SUCROSE 500 MG in NS 250 ML IV ONE (13:00)
--- NOTE | 2019-12-03 21:41 | DS.PDOC ---
Discharge Summary General Date of Admission Dec 02, 2019 at 16:26 Date of Discharge 12/03/19 Discharge Summary PROCEDURES PERFORMED DURING STAY: [None]. DISCHARGE DIAGNOSES: Symptomatic anemia requiring 4 units PRBC transfusion Severe iron deficiency Acute high output heart failure with preserved EF due to severe anemia SECONDARY DIAGNOSIS: Mobitz Type 2 block s/p pacemaker in 08/2019 CAD s/p AMI and SUBSEQUENT RCA ANGIOPLASTY IN FEBRUARY 2006. HIS LAST STRESS TEST IN MARCH 2017 DEMONSTRATED A LEFT VENTRICULAR EJECTION FRACTION OF 74%. HYPERTENSION CHRONIC OBSTRUCTIVE PULMONARY DISEASE, Chronic right heart failure/ corpulmonale JENNI on CPAP CHRONIC BACK PAIN and Neck pain LUNG NODULE stable in CT scan followed by pulmonary PAD : RIGHT VERTEBRAL artery OCCLUSION AND ULCERATED PLAQUE OF THE PROXIMAL LEFT SUBCLAVIAN following with vascular surgeon in [place] Dr Gutiérrez. DIVERTICULOSIS HEMORRHOIDS Obesity CKD stage 3 Macrocytosis LUMBAR LAMINECTOMY AFTER INJURED NECK AND BACK 2002, COMPLICATIONS/CHIEF COMPLAINT: Symptomtic Anemia. HOSPITAL COURSE: 74 year old male was sent from his PMD's office for abnormal lab work. He went for a routine visit yesterday lab work was done and today he was found to be severely anemic so was instructed to come to the ED. He complains of gradually increasing exertional dyspnea over the past 3 months and over the past month he is hardly able to get out of bed and walk. He has not been able to go out of the house due to SOB. He has also noticed swelling of his legs which he reports is a little better after medications. He complains of palpitations whenever he starts walking. He complains of generalized weakness and fatigue. He denies any black stool or any bright red blood per rectum. He reports had EGD and colonoscopy this summer. Does not report any michelle bleeding from anywhere. He uses a CPAP at night but does not use any oxygen. He had a pacemaker placed this year. In the ED he was found to have a Hb of 6.8. He was admitted for symptomatic anemia and acute CHF with preserved EF. Symptomatic anemia severe iron deficiency recieved 4 units of PRBC. Had EGD and colonoscopy in , No abnormality Guaiac negative given venofer iv 500 mg Vit b12 and folate normal SPEP ordered. Hapto globin ordered. Normal LDH and NOrmal bili so does not look like any hemolysis is going on. Discussed with Dr Lennon and he reccomended flow cytometry for CD 55 and CD 59 for evaluation for PNH which sometimes presents as iron def anemia. referral given to Dr Lennon (Hem-Onc) CAD s/p angioplasty continue statin, beta praful, asa. COPD/Corpulmonale continue symbicort, spiriva lev albuterol Acute high output CHF with preserved EF due to anemia s/p IV lasix. Continue home lasix. Chronic right heart failure lasix JENNI CPAP Hypertension continue home meds H/o Mobitx type [address] DISCHARGE MEDICATIONS: Please see below. ALLERGIES: Please see below. PHYSICAL EXAMINATION ON DISCHARGE: VITAL SIGNS: Please see below. General Exam: Positive: Alert, Cooperative, No Acute Distress Eye Exam: Positive: PERRLA, Conjunctiva & lids normal, EOMI; Negative: Sclera icteric ENT Exam: Positive: Atraumatic, Mucous membr. moist/pink, Pharynx Normal Neck Exam: Positive: Supple; Negative: JVD, thyromegaly Chest Exam: Positive: Wheezing, Diminished (at the bases) Heart Exam: Positive: Rate Normal, Regular Rhythm, Normal S1, Normal S2; Negative: Murmurs, Rubs Telemetry: Positive: No significant arrhythmia Abdomen Exam: Positive: Normal bowel sounds, Soft, Other (obese); Negative: Tenderness Extremity Exam: Positive: Edema; Negative: Clubbing, Cyanosis Skin Exam: Positive: Nl turgor and temperature; Negative: Breakdown, Lesion Neuro Exam: Positive: Normal Speech, Strength at 5/5 X4 ext, Normal Tone, Sensation Intact Psych Exam: Positive: Memory Intact, Oriented x 3 LABORATORY DATA: Please see below. ACTIVITY: [As tolerated]. DIET: As tolerated DISPOSITION: 01 Home, Self-Care. DISCHARGE INSTRUCTIONS: Dr Lennon in 1 week PMD in 1 week DISCHARGE CONDITION: [Stable]. TIME SPENT ON DISCHARGE: 35 minutes. Vital Signs/I&Os Vital Signs Date Time Temp Pulse Resp B/P (MAP) Pulse Ox O2 Delivery O2 Flow Rate FiO2 12/03/19 14:00 97.8 79 17 131/70 (90) 95 Room Air 12/02/19 17:47 2.0 I&O- Last 24 Hours up to 6 AM 12/03/19 07:00 Intake Total 1470 ml Output Total 1900 ml Balance -430 ml Laboratory Data Labs 24H Laboratory Tests 2 12/03/19 06:29: Immature Granulocyte % (Auto) 1.1, Neutrophils (%) (Auto) 73.7H, Lymphocytes (%) (Auto) 11.4L, Monocytes (%) (Auto) 10.1H, Eosinophils (%) (Auto) 3.1H, Basophils (%) (Auto) 0.6, Neutrophils # (Auto) 5.2, Lymphocytes # (Auto) 0.8L, Monocytes # (Auto) 0.7, Eosinophils # (Auto) 0.2, Basophils # (Auto) 0.0, Nucleated Red Blood Cells % (auto) 0.0, Anion Gap 6L, Glomerular Filtration Rate 47.7, Calcium Level 8.5L CBC/BMP Laboratory Tests 12/03/19 06:29 Microbiology Microbiology 12/02/19 Blood Culture - Preliminary, Resulted No growth after 24 hours . All specim... 12/02/19 Blood Culture - Preliminary, Resulted No growth after 24 hours . All specim... Discharge Medications Scheduled Aspirin (Aspirin EC) 81 Mg Tab, 81 MG PO QHS, (Reported) Atorvastatin Calcium (Atorvastatin Calcium) 80 Mg Tablet, 80 MG PO QHS, (Reported) Clopidogrel Bisulfate (Clopidogrel) 75 Mg Tablet, 75 MG PO DAILY, (Reported) Docusate Sodium (Docusate Sodium) 100 Mg Capsule, 100 MG PO BID Ferrous Gluconate (Ferrous Gluconate) 324 Mg Tablet, 1 TAB PO DAILY for iron Fluticasone Furoate (Arnuity Ellipta) 200 Mcg Blst.w.dev, 200 MCG INH DAILY, (Reported) Levalbuterol Hydrochloride (Xopenex Concentrate) 1.25 Mg/0.5 Ml Vial.neb, 1.25 MG INH DAILY, (Reported) Lisinopril (Lisinopril) 2.5 Mg Tablet, 2.5 MG PO QHS, (Reported) Loratadine (Loratadine) 10 Mg Tablet, 10 MG PO DAILY, (Reported) Metoprolol Succinate (Metoprolol Succinate) 25 Mg Tab, 25 MG PO QHS, (Reported) Umeclidinium Brm/Vilanterol Tr (Anoro Ellipta 62.5-25 Mcg INH) 1 Aer Aer, 1 PUFF DAILY, (Reported) Scheduled PRN Furosemide (Furosemide) 40 Mg Tablet, 60 MG PO DAILY PRN for EDEMA, (Reported) Levalbuterol Hydrochloride (Xopenex Hfa) 45 Mcg/Act Aer, 2 PUFF INH Q4H PRN for SOB/WHEEZING, (Reported) Levalbuterol Hydrochloride (Xopenex Concentrate) 1.25 Mg/0.5 Ml Neb, 1.25 MG INH QID PRN for SOB/WHEEZING, (Reported) Lidocaine (Lidoderm) 5 % Dis, 1 PATCH TD DAILY PRN for BACK PAIN, (Reported) Nitroglycerin (Nitroglycerin) 0.4 Mg Sub, 0.4 MG SL Q5MP PRN for CHEST PAIN, (Reported) Allergies Coded Allergies: varenicline (Verified Adverse Reaction, Mild, nightmares, 08/20/19) MARA FONG MD Dec 03, 2019 21:41
[2019-12-04 09:17] LABS: TOTAL PROTEIN 6.5 GM/DL (6.4-8.2)
[2019-12-04 10:57] LABS: ALBUMIN 4.05 GM/DL (3.29-5.55); ALBUMIN % 62.3 % (55.8-66.1); ALPHA-1-GLOBULIN % 5.1 % (2.9-4.9); ALPHA-1-GLOBULINS 0.33 GM/DL (0.17-0.41); ALPHA-2-GLOBULINS 0.64 GM/DL (0.42-0.99); ALPHA-2-GLOBULINS % 9.8 % (7.1-11.8); BETA-1-GLOBULINS 0.54 GM/DL (0.28-0.60); BETA-1-GLOBULINS % 8.3 % (4.7-7.2); BETA-2-GLOBULINS 0.27 GM/DL (0.19-0.55); BETA-2-GLOBULINS % 4.1 % (3.2-6.5); GAMMA GLOBULIN % 10.4 % (11.1-18.8); GAMMA GLOBULINS 0.68 GM/DL (0.65-1.58)
== END 2019-12-03 17:40 | disposition home or self-care (01) | DRG 811 ==
LOC: M ED 13:11 → M ED INP 16:26 → ENRESERV 18:03 → M MS5PR 19:33
PROVIDERS: ADMIT Internal Medicine Nephrology; ATTEND Internal Medicine Nephrology
PROC: 30233N1 Transfusion of Nonautologous Red Blood Cells into Peripheral Vein, Percutaneous Approach (ICD-10-PCS; principal; 2019-12-02)
DX: D50.9 Iron deficiency anemia, unspecified (principal); I50.31 Acute diastolic (congestive) heart failure; I13.0 Hypertensive heart and chronic kidney disease with heart failure and stage 1 through stage 4 chronic kidney disease, or unspecified chronic kidney disease; I25.10 Atherosclerotic heart disease of native coronary artery without angina pectoris; I50.812 Chronic right heart failure; I27.81 Cor pulmonale (chronic); N18.3 Chronic kidney disease, stage 3 (moderate); G47.33 Obstructive sleep apnea (adult) (pediatric); R91.1 Solitary pulmonary nodule; Z95.0 Presence of cardiac pacemaker; J44.9 Chronic obstructive pulmonary disease, unspecified; K57.30 Diverticulosis of large intestine without perforation or abscess without bleeding; Z79.82 Long term (current) use of aspirin; Z79.899 Other long term (current) drug therapy; Z88.8 Allergy status to other drugs, medicaments and biological substances

== ENCOUNTER → 2019-12-02 | Outpatient (CLI) | payer MEDICARE ==
[2019-12-02 11:38] LABS: HEMATOCRIT 23.5 % (42.0-52.0); MEAN CORPUSCULAR HEMOGLOBIN 23.5 pg (27.0-33.0); MEAN CORPUSCULAR HGB CONC 28.9 g/dl (32.0-36.5); MEAN CORPUSCULAR VOLUME 81.3 fl (80.0-96.0); PLATELET COUNT, AUTOMATED 345 10^3/uL (150-450); RED BLOOD COUNT 2.89 10^6/uL (4.30-6.10); WHITE BLOOD COUNT 6.6 10^3/uL (4.0-10.0)
[2019-12-02 11:49] LABS: HEMOGLOBIN 6.8 g/dl (13.5-17.5)
[2019-12-02 12:18] LABS: ALBUMIN 3.8 GM/DL (3.2-5.2); BILIRUBIN,TOTAL 0.3 MG/DL (0.2-1.0); CALCIUM LEVEL 8.8 MG/DL (8.8-10.2); CHOLESTEROL RISK RATIO 2.463 (<5); CREATININE FOR GFR 1.62 MG/DL (0.70-1.30); GLOMERULAR FILTRATION RATE 44.3 (>42); MAGNESIUM LEVEL 2.4 MG/DL (1.8-2.4); TOTAL PROTEIN 6.7 GM/DL (6.4-8.2)
== END ==
LOC: M PLALAB 07:51
PROVIDERS: ATTEND Internal Medicine
DX: I10 Essential (primary) hypertension (principal); J44.9 Chronic obstructive pulmonary disease, unspecified; I25.10 Atherosclerotic heart disease of native coronary artery without angina pectoris

== ENCOUNTER 2019-12-07 07:37 | Emergency (ER) | payer MEDICARE ==
[~2019-12-07] VITALS: Ht 170.2 cm; Wt 96.2 kg
[2019-12-07 07:37] VITALS: BP 131/60
[~2019-12-07 07:37] MED LIST changes: +ATOR80TA59 PO; +DOCU100C16 PO; +FERR325T16 PO
--- NOTE | 2019-12-07 09:15 | REPVR ---
PROCEDURE INFORMATION: Exam: US Duplex Right Upper Extremity Veins, Limited Exam date and time: 12/07/2019 8:58 AM Age: 74 years old Clinical indication: Pain; Hand; Right; Additional info: Redness, swelling S/P iv R/O dvt TECHNIQUE: Imaging protocol: Real-time Duplex ultrasound of the Right Upper Extremity with 2-D ahn scale, color Doppler flow and spectral waveform analysis with image documentation. Limited exam focused on the right upper extremity veins. COMPARISON: No relevant prior studies available. FINDINGS: Right deep veins: Axillary and brachial veins are patent throughout without thrombus. Normal Doppler waveforms. Normal compressibility and/or augmentation response. Visualized internal jugular and subclavian veins are patent. Right superficial veins: Visualized cephalic and basilic veins are patent without thrombus. There is occlusive thrombus within the superficial vein of the right wrist at the site of a previous IV insertion consistent with thrombophlebitis. Soft tissues: There is some soft tissue edema in the right wrist. IMPRESSION: 1. Superficial thrombophlebitis right wrist. 2. No right upper extremity DVT. Electronically signed by: Georgi La On 12/07/2019 09:14:58 AM
== END 2019-12-07 09:05 | disposition home or self-care (01) ==
LOC: M ED 07:37
DX: I80.8 Phlebitis and thrombophlebitis of other sites (principal); I25.10 Atherosclerotic heart disease of native coronary artery without angina pectoris; I25.2 Old myocardial infarction; J44.9 Chronic obstructive pulmonary disease, unspecified; I10 Essential (primary) hypertension; G47.33 Obstructive sleep apnea (adult) (pediatric); N18.9 Chronic kidney disease, unspecified; G89.29 Other chronic pain; M54.9 Dorsalgia, unspecified; Z95.5 Presence of coronary angioplasty implant and graft; Z95.0 Presence of cardiac pacemaker; Z98.61 Coronary angioplasty status; Z79.82 Long term (current) use of aspirin; Z79.899 Other long term (current) drug therapy; Z88.8 Allergy status to other drugs, medicaments and biological substances

== ENCOUNTER → 2020-01-05 | Outpatient (REF) | payer MEDICARE ==
[2020-01-05 10:24] LABS: HEMATOCRIT 35.6 % (42.0-52.0); HEMOGLOBIN 10.8 g/dl (13.5-17.5); MEAN CORPUSCULAR HEMOGLOBIN 28.1 pg (27.0-33.0); MEAN CORPUSCULAR HGB CONC 30.3 g/dl (32.0-36.5); MEAN CORPUSCULAR VOLUME 92.7 fl (80.0-96.0); PLATELET COUNT, AUTOMATED 269 10^3/uL (150-450); RED BLOOD COUNT 3.84 10^6/uL (4.30-6.10); WHITE BLOOD COUNT 7.8 10^3/uL (4.0-10.0)
[2020-01-05 10:52] LABS: ALBUMIN 3.7 GM/DL (3.2-5.2); BILIRUBIN,TOTAL 0.4 MG/DL (0.2-1.0); CALCIUM LEVEL 8.7 MG/DL (8.8-10.2); CREATININE FOR GFR 1.44 MG/DL (0.70-1.30); GLOMERULAR FILTRATION RATE 50.8 (>42); POTASSIUM SERUM 4.5 MEQ/L (3.5-5.1); TOTAL PROTEIN 6.6 GM/DL (6.4-8.2)
== END ==
LOC: M PLALAB 08:07
PROVIDERS: ATTEND Internal Medicine
DX: D50.9 Iron deficiency anemia, unspecified (principal); I10 Essential (primary) hypertension

== ENCOUNTER → 2020-02-02 | Outpatient (REF) | payer MEDICARE ==
[2020-02-02 10:44] LABS: HEMATOCRIT 34.6 % (42.0-52.0); HEMOGLOBIN 10.7 g/dl (13.5-17.5); MEAN CORPUSCULAR HEMOGLOBIN 30.7 pg (27.0-33.0); MEAN CORPUSCULAR HGB CONC 30.9 g/dl (32.0-36.5); MEAN CORPUSCULAR VOLUME 99.1 fl (80.0-96.0); PLATELET COUNT, AUTOMATED 307 10^3/uL (150-450); RED BLOOD COUNT 3.49 10^6/uL (4.30-6.10)
== END ==
LOC: M PLALAB 07:51
PROVIDERS: ATTEND Internal Medicine
DX: D50.9 Iron deficiency anemia, unspecified (principal)

== ENCOUNTER → 2020-02-02 | Outpatient (CLI) | payer MEDICARE ==
[2020-02-02 11:33] LABS: CALCIUM LEVEL 8.7 MG/DL (8.8-10.2); CREATININE FOR GFR 1.53 MG/DL (0.70-1.30); GLOMERULAR FILTRATION RATE 47.2 (>42); POTASSIUM SERUM 4.8 MEQ/L (3.5-5.1)
== END ==
LOC: M PLALAB 07:52
PROVIDERS: ATTEND Physician Assistant
DX: I27.81 Cor pulmonale (chronic) (principal); D50.9 Iron deficiency anemia, unspecified

== ENCOUNTER → 2020-03-01 | Outpatient (REF) | payer MEDICARE ==
[2020-03-01 10:51] LABS: HEMATOCRIT 35.6 % (42.0-52.0); HEMOGLOBIN 11.4 g/dl (13.5-17.5); MEAN CORPUSCULAR HEMOGLOBIN 33.3 pg (27.0-33.0); MEAN CORPUSCULAR VOLUME 104.1 fl (80.0-96.0); PLATELET COUNT, AUTOMATED 279 10^3/uL (150-450); RED BLOOD COUNT 3.42 10^6/uL (4.30-6.10); WHITE BLOOD COUNT 7.5 10^3/uL (4.0-10.0)
== END ==
LOC: M PLALAB 07:54
PROVIDERS: ATTEND Internal Medicine
DX: D50.9 Iron deficiency anemia, unspecified (principal)

== ENCOUNTER → 2020-03-29 | Outpatient (REF) | payer MEDICARE ==
[~2020-03-29] MED LIST changes: +GABA-282 PO; -GABA-843 PO; +LISI10TA22 PO; -LISI10TA4 PO
[2020-03-29 10:45] LABS: HEMATOCRIT 34.6 % (42.0-52.0); HEMOGLOBIN 10.9 g/dl (13.5-17.5); MEAN CORPUSCULAR HEMOGLOBIN 34.1 pg (27.0-33.0); MEAN CORPUSCULAR HGB CONC 31.5 g/dl (32.0-36.5); MEAN CORPUSCULAR VOLUME 108.1 fl (80.0-96.0); PLATELET COUNT, AUTOMATED 280 10^3/uL (150-450); WHITE BLOOD COUNT 6.7 10^3/uL (4.0-10.0)
== END ==
LOC: M PLALAB 07:56
PROVIDERS: ATTEND Internal Medicine
DX: D50.9 Iron deficiency anemia, unspecified (principal)

== ENCOUNTER → 2020-04-21 | Outpatient (REF) | payer MEDICARE, OTHER ==
[2020-04-21 10:08] LABS: BASO # 0.1 10^3/uL (0.0-0.2); BASO % 1.1 % (0.0-1.0); EOS # 0.2 10^3/uL (0.0-0.5); HEMATOCRIT 34.7 % (42.0-52.0); HEMOGLOBIN 11.2 g/dl (13.5-17.5); LYMPH # 0.8 10^3/uL (1.5-5.0); LYMPH % 10.5 % (24.0-44.0); MEAN CORPUSCULAR HGB CONC 32.3 g/dl (32.0-36.5); MEAN CORPUSCULAR VOLUME 108.4 fl (80.0-96.0); MONO # 0.7 10^3/uL (0.0-0.8); MONO % 9.8 % (0.0-5.0); NEUTROPHILS # 5.7 10^3/uL (1.5-8.5); NEUTROPHILS % 75.1 % (36.0-66.0); PLATELET COUNT, AUTOMATED 260 10^3/uL (150-450); WHITE BLOOD COUNT 7.5 10^3/uL (4.0-10.0)
== END ==
LOC: M PLALAB 08:02
PROVIDERS: ATTEND Internal Medicine
DX: D50.9 Iron deficiency anemia, unspecified (principal)

== ENCOUNTER → 2020-05-03 | Outpatient (CLI) | payer MEDICARE ==
[2020-05-03 15:06] LABS: CALCIUM LEVEL 8.7 MG/DL (8.8-10.2); CREATININE FOR GFR 1.82 MG/DL (0.70-1.30); GLOMERULAR FILTRATION RATE 38.6 (>42); POTASSIUM SERUM 4.3 MEQ/L (3.5-5.1)
== END ==
LOC: M PLALAB 08:39
PROVIDERS: ATTEND Physician Assistant
DX: I27.81 Cor pulmonale (chronic) (principal)

== ENCOUNTER → 2020-05-19 | Outpatient (REF) | payer MEDICARE, OTHER ==
[2020-05-19 10:09] LABS: BASO # 0.1 10^3/uL (0.0-0.2); BASO % 0.9 % (0.0-1.0); EOS # 0.1 10^3/uL (0.0-0.5); EOS % 1.8 % (0.0-3.0); HEMATOCRIT 30.2 % (42.0-52.0); HEMOGLOBIN 9.8 g/dl (13.5-17.5); LYMPH # 0.8 10^3/uL (1.5-5.0); LYMPH % 10.8 % (24.0-44.0); MEAN CORPUSCULAR HEMOGLOBIN 35.1 pg (27.0-33.0); MEAN CORPUSCULAR HGB CONC 32.5 g/dl (32.0-36.5); MEAN CORPUSCULAR VOLUME 108.2 fl (80.0-96.0); MONO # 0.9 10^3/uL (0.0-0.8); MONO % 11.6 % (2.0-8.0); NEUTROPHILS # 5.4 10^3/uL (1.5-8.5); PLATELET COUNT, AUTOMATED 285 10^3/uL (150-450); RED BLOOD COUNT 2.79 10^6/uL (4.30-6.10); WHITE BLOOD COUNT 7.4 10^3/uL (4.0-10.0)
== END ==
LOC: M PLALAB 08:01
PROVIDERS: ATTEND Internal Medicine
DX: D50.9 Iron deficiency anemia, unspecified (principal)

== ENCOUNTER → 2020-06-01 | Outpatient (REF) | payer MEDICARE, OTHER ==
[2020-06-01 10:46] LABS: BASO # 0.1 10^3/uL (0.0-0.2); BASO % 1.2 % (0.0-1.0); EOS # 0.2 10^3/uL (0.0-0.5); HEMOGLOBIN 10.1 g/dl (13.5-17.5); LYMPH # 0.8 10^3/uL (1.5-5.0); LYMPH % 11.1 % (24.0-44.0); MEAN CORPUSCULAR HEMOGLOBIN 35.2 pg (27.0-33.0); MEAN CORPUSCULAR HGB CONC 32.6 g/dl (32.0-36.5); MONO # 0.8 10^3/uL (0.0-0.8); MONO % 10.7 % (2.0-8.0); NEUTROPHILS # 5.3 10^3/uL (1.5-8.5); NEUTROPHILS % 71.8 % (36.0-66.0); PLATELET COUNT, AUTOMATED 297 10^3/uL (150-450); RED BLOOD COUNT 2.87 10^6/uL (4.30-6.10); WHITE BLOOD COUNT 7.3 10^3/uL (4.0-10.0)
== END ==
LOC: M PLALAB 08:01
PROVIDERS: ATTEND Internal Medicine
DX: D50.9 Iron deficiency anemia, unspecified (principal)

== ENCOUNTER → 2020-06-16 | Outpatient (REF) | payer MEDICARE, OTHER ==
[~2020-06-16] MED LIST changes: +FERR324T21 PO; -FERR325T16 PO
[2020-06-16 10:07] LABS: BASO # 0.1 10^3/uL (0.0-0.2); BASO % 0.9 % (0.0-1.0); EOS # 0.2 10^3/uL (0.0-0.5); EOS % 2.4 % (0.0-3.0); HEMATOCRIT 33.3 % (42.0-52.0); HEMOGLOBIN 10.8 g/dl (13.5-17.5); LYMPH # 0.8 10^3/uL (1.5-5.0); LYMPH % 8.5 % (24.0-44.0); MEAN CORPUSCULAR HEMOGLOBIN 35.2 pg (27.0-33.0); MEAN CORPUSCULAR HGB CONC 32.4 g/dl (32.0-36.5); MEAN CORPUSCULAR VOLUME 108.5 fl (80.0-96.0); MONO % 10.6 % (2.0-8.0); NEUTROPHILS # 7.3 10^3/uL (1.5-8.5); NEUTROPHILS % 76.1 % (36.0-66.0); PLATELET COUNT, AUTOMATED 293 10^3/uL (150-450); RED BLOOD COUNT 3.07 10^6/uL (4.30-6.10); WHITE BLOOD COUNT 9.6 10^3/uL (4.0-10.0)
== END ==
LOC: M PLALAB 08:04
PROVIDERS: ATTEND Internal Medicine
DX: D50.9 Iron deficiency anemia, unspecified (principal)

== ENCOUNTER → 2020-07-23 | Outpatient (REF) | payer MEDICARE, OTHER ==
[2020-07-23 11:12] LABS: BASO # 0.1 10^3/uL (0.0-0.2); BASO % 1.1 % (0.0-1.0); EOS # 0.2 10^3/uL (0.0-0.5); EOS % 2.4 % (0.0-3.0); HEMATOCRIT 33.5 % (42.0-52.0); HEMOGLOBIN 10.6 g/dl (13.5-17.5); LYMPH # 0.8 10^3/uL (1.5-5.0); LYMPH % 11.9 % (24.0-44.0); MEAN CORPUSCULAR HEMOGLOBIN 34.9 pg (27.0-33.0); MEAN CORPUSCULAR HGB CONC 31.6 g/dl (32.0-36.5); MEAN CORPUSCULAR VOLUME 110.2 fl (80.0-96.0); MONO # 0.8 10^3/uL (0.0-0.8); MONO % 11.5 % (2.0-8.0); NEUTROPHILS # 5.1 10^3/uL (1.5-8.5); NEUTROPHILS % 71.7 % (36.0-66.0); PLATELET COUNT, AUTOMATED 295 10^3/uL (150-450); RED BLOOD COUNT 3.04 10^6/uL (4.30-6.10); WHITE BLOOD COUNT 7.1 10^3/uL (4.0-10.0)
[2020-07-23 11:47] LABS: ALBUMIN 3.7 GM/DL (3.2-5.2); BILIRUBIN,TOTAL 0.4 MG/DL (0.2-1.0); CALCIUM LEVEL 8.9 MG/DL (8.8-10.2); CHOLESTEROL RISK RATIO 2.725 (<5); CREATININE FOR GFR 1.41 MG/DL (0.70-1.30); GLOMERULAR FILTRATION RATE 51.9 (>42); TOTAL PROTEIN 6.4 GM/DL (6.4-8.2)
== END ==
LOC: M PLALAB 07:45
PROVIDERS: ATTEND Internal Medicine
DX: D50.9 Iron deficiency anemia, unspecified (principal); I10 Essential (primary) hypertension

== ENCOUNTER → 2020-08-10 | Outpatient (CLI) | payer MEDICARE, OTHER ==
[2020-08-10 11:46] LABS: CREATININE FOR GFR 1.48 MG/DL (0.70-1.30); GLOMERULAR FILTRATION RATE 49.1 (>42); POTASSIUM SERUM 4.7 MEQ/L (3.5-5.1)
== END ==
LOC: M PLALAB 07:53
PROVIDERS: ATTEND Physician Assistant
DX: I27.81 Cor pulmonale (chronic) (principal)

== ENCOUNTER → 2020-11-25 | Outpatient (CLI) | payer MEDICARE ==
[~2020-11-25] MED LIST changes: -LISI2.5T2 PO; +LISI2.5T9 PO
[2020-11-25 11:45] LABS: BASO # 0.1 10^3/uL (0.0-0.2); BASO % 1.2 % (0.0-1.0); EOS # 0.1 10^3/uL (0.0-0.5); EOS % 1.9 % (0.0-3.0); LYMPH # 0.7 10^3/uL (1.5-5.0); MEAN CORPUSCULAR HEMOGLOBIN 34.2 pg (27.0-33.0); MEAN CORPUSCULAR HGB CONC 32.4 g/dl (32.0-36.5); MEAN CORPUSCULAR VOLUME 105.6 fl (80.0-96.0); MONO # 0.9 10^3/uL (0.0-0.8); NEUTROPHILS # 4.9 10^3/uL (1.5-8.5); PLATELET COUNT, AUTOMATED 312 10^3/uL (150-450); RED BLOOD COUNT 3.22 10^6/uL (4.30-6.10); WHITE BLOOD COUNT 6.8 10^3/uL (4.0-10.0)
[2020-11-25 11:50] LABS: CREATININE FOR GFR 1.48 MG/DL (0.70-1.30); GLOMERULAR FILTRATION RATE 49.1 (>42); POTASSIUM SERUM 4.9 MEQ/L (3.5-5.1)
[2020-11-25 11:51] LABS: ALBUMIN 3.8 GM/DL (3.2-5.2); BILIRUBIN,TOTAL 0.5 MG/DL (0.2-1.0); CALCIUM LEVEL 8.7 MG/DL (8.8-10.2); TOTAL PROTEIN 6.9 GM/DL (6.4-8.2)
[2020-11-25 11:52] LABS: FOLATE 13.5 NG/ML
== END ==
LOC: M PLALAB 08:05
PROVIDERS: ATTEND Internal Medicine
DX: I10 Essential (primary) hypertension (principal); D75.89 Other specified diseases of blood and blood-forming organs

== ENCOUNTER → 2021-03-01 | Outpatient (CLI) | payer MEDICARE ==
[2021-03-01 11:00] LABS: HEMOGLOBIN 10.4 g/dl (13.5-17.5); MEAN CORPUSCULAR HGB CONC 31.5 g/dl (32.0-36.5); MEAN CORPUSCULAR VOLUME 101.5 fl (80.0-96.0); PLATELET COUNT, AUTOMATED 338 10^3/uL (150-450); RED BLOOD COUNT 3.25 10^6/uL (4.30-6.10); WHITE BLOOD COUNT 8.1 10^3/uL (4.0-10.0)
[2021-03-01 11:32] LABS: CALCIUM LEVEL 9.1 MG/DL (8.8-10.2); CREATININE FOR GFR 1.35 MG/DL (0.70-1.30); GLOMERULAR FILTRATION RATE 54.4 (>42); POTASSIUM SERUM 4.3 MEQ/L (3.5-5.1)
== END ==
LOC: M PLALAB 09:39
PROVIDERS: ATTEND Physician Assistant
DX: I27.81 Cor pulmonale (chronic) (principal); I25.10 Atherosclerotic heart disease of native coronary artery without angina pectoris

== ENCOUNTER → 2021-06-27 | Outpatient (CLI) | payer MEDICARE ==
[2021-06-27 10:12] LABS: BASO # 0.1 10^3/uL (0.0-0.2); BASO % 1.2 % (0.0-1.0); EOS # 0.2 10^3/uL (0.0-0.5); EOS % 2.1 % (0.0-3.0); HEMATOCRIT 32.2 % (42.0-52.0); HEMOGLOBIN 10.1 g/dl (13.5-17.5); LYMPH # 0.9 10^3/uL (1.5-5.0); LYMPH % 12.4 % (24.0-44.0); MEAN CORPUSCULAR HEMOGLOBIN 30.9 pg (27.0-33.0); MEAN CORPUSCULAR HGB CONC 31.4 g/dl (32.0-36.5); MEAN CORPUSCULAR VOLUME 98.5 fl (80.0-96.0); MONO # 0.9 10^3/uL (0.0-0.8); MONO % 11.3 % (2.0-8.0); NEUTROPHILS # 5.3 10^3/uL (1.5-8.5); NEUTROPHILS % 70.2 % (36.0-66.0); PLATELET COUNT, AUTOMATED 295 10^3/uL (150-450); RED BLOOD COUNT 3.27 10^6/uL (4.30-6.10); WHITE BLOOD COUNT 7.5 10^3/uL (4.0-10.0)
[2021-06-27 11:14] LABS: ALBUMIN 3.8 GM/DL (3.2-5.2); BILIRUBIN,TOTAL 0.4 MG/DL (0.2-1.0); CALCIUM LEVEL 8.4 MG/DL (8.8-10.2); CHOLESTEROL RISK RATIO 2.78 (<5); CREATININE FOR GFR 1.6 MG/DL (0.70-1.30); GLOMERULAR FILTRATION RATE 44.7 (>42); MAGNESIUM LEVEL 2.3 MG/DL (1.8-2.4); POTASSIUM SERUM 4.5 MEQ/L (3.5-5.1); TOTAL PROTEIN 6.5 GM/DL (6.4-8.2)
== END ==
LOC: M PLALAB 07:55
PROVIDERS: ATTEND Internal Medicine
DX: I10 Essential (primary) hypertension (principal); I25.10 Atherosclerotic heart disease of native coronary artery without angina pectoris; D75.89 Other specified diseases of blood and blood-forming organs; Z11.59 Encounter for screening for other viral diseases
CPT/HCPCS: 36415; 80053; 80061; 83735; 85025; G0472

== ENCOUNTER → 2021-07-04 | Outpatient (CLI) | payer MEDICARE, OTHER ==
[~2021-07-04] MED LIST changes: +ALBU83IN INH; +AMOX875T2 PO; +FERR32TA PO; +PRED20TA PO; +TORS20TA2 PO
[2021-07-04 13:19] LABS: BASO # 0.1 10^3/uL (0.0-0.2); BASO % 1.1 % (0.0-1.0); EOS # 0.2 10^3/uL (0.0-0.5); EOS % 1.8 % (0.0-3.0); HEMATOCRIT 33.1 % (42.0-52.0); HEMOGLOBIN 10.6 g/dl (13.5-17.5); LYMPH # 0.8 10^3/uL (1.5-5.0); LYMPH % 9.2 % (24.0-44.0); MEAN CORPUSCULAR HEMOGLOBIN 31.2 pg (27.0-33.0); MEAN CORPUSCULAR VOLUME 97.4 fl (80.0-96.0); MONO # 0.9 10^3/uL (0.0-0.8); MONO % 9.8 % (2.0-8.0); NEUTROPHILS # 6.8 10^3/uL (1.5-8.5); NEUTROPHILS % 76.1 % (36.0-66.0); PLATELET COUNT, AUTOMATED 319 10^3/uL (150-450)
[2021-07-04 13:26] LABS: ALBUMIN 3.9 GM/DL (3.2-5.2); BILIRUBIN,TOTAL 0.5 MG/DL (0.2-1.0); CALCIUM LEVEL 9.7 MG/DL (8.8-10.2); CHOLESTEROL RISK RATIO 3.216 (<5); CREATININE FOR GFR 1.45 MG/DL (0.70-1.30); GLOMERULAR FILTRATION RATE 50.1 (>42); MAGNESIUM LEVEL 2.3 MG/DL (1.8-2.4); POTASSIUM SERUM 4.5 MEQ/L (3.5-5.1); TOTAL PROTEIN 6.6 GM/DL (6.4-8.2)
[2021-07-04 14:09] LABS: HEPATITIS C VIRUS ABY INDEX 0.1 INDEX (<0.8)
== END ==
LOC: M PLALAB 10:06
PROVIDERS: ATTEND Internal Medicine
DX: I10 Essential (primary) hypertension (principal); I25.10 Atherosclerotic heart disease of native coronary artery without angina pectoris; D75.89 Other specified diseases of blood and blood-forming organs; Z11.59 Encounter for screening for other viral diseases

== ENCOUNTER 2021-07-17 09:43 | Inpatient (IN) | payer MEDICARE, OTHER ==
[~2021-07-17] VITALS: Ht 170.2 cm; Wt 103.6 kg
[~2021-07-17 09:43] MED LIST changes: -ALBU83IN INH; -AMOX875T2 PO; -FERR32TA PO; -PRED20TA PO; -TORS20TA2 PO
[2021-07-17] MEDS ORDERED: TORS20TA2 PO (09:58)
[2021-07-17] MEDS ORDERED: methylPREDNISolone 125MG 2ML VIAL IV ONE (10:10)
[2021-07-17] MEDS: COMBIVENT RESPIMAT 100-20MCG INHALER 4GM INH SCH ×3 (10:15→11:00)
[2021-07-17 10:41] LABS: BASO # 0.1 10^3/uL (0.0-0.2); BASO % 0.4 % (0.0-1.0); EOS # 0.1 10^3/uL (0.0-0.5); EOS % 0.6 % (0.0-3.0); HEMATOCRIT 31.1 % (42.0-52.0); HEMOGLOBIN 9.9 g/dl (13.5-17.5); LYMPH # 0.6 10^3/uL (1.5-5.0); LYMPH % 4.1 % (24.0-44.0); MEAN CORPUSCULAR HEMOGLOBIN 30.5 pg (27.0-33.0); MEAN CORPUSCULAR HGB CONC 31.8 g/dl (32.0-36.5); MEAN CORPUSCULAR VOLUME 95.7 fl (80.0-96.0); MONO # 1.1 10^3/uL (0.0-0.8); MONO % 6.8 % (2.0-8.0); NEUTROPHILS # 13.3 10^3/uL (1.5-8.5); NEUTROPHILS % 85.9 % (36.0-66.0); PLATELET COUNT, AUTOMATED 303 10^3/uL (150-450); RED BLOOD COUNT 3.25 10^6/uL (4.30-6.10); WHITE BLOOD COUNT 15.6 10^3/uL (4.0-10.0)
[2021-07-17] MEDS ORDERED: DOCU100C16 PO (11:01)
[2021-07-17] MEDS ORDERED: FERR32TA PO (11:01)
[2021-07-17] MEDS ORDERED: HOME MED LIST COMPLETE! XX SCH (11:05)
[2021-07-17 11:16] LABS: ALBUMIN 3.4 GM/DL (3.2-5.2); BILIRUBIN,DIRECT 0.2 MG/DL (0.0-0.2); BILIRUBIN,TOTAL 0.5 MG/DL (0.2-1.0); CALCIUM LEVEL 8.6 MG/DL (8.8-10.2); CREATININE FOR GFR 1.74 MG/DL (0.70-1.30); GLOMERULAR FILTRATION RATE 40.6 (>42); POTASSIUM SERUM 4.4 MEQ/L (3.5-5.1); THYROID STIMULATING HORMONE 0.567 uIU/ML (0.358-3.740); THYROXINE (T4) 6.2 UG/DL (4.5-12.0); TOTAL PROTEIN 6.6 GM/DL (6.4-8.2)
[2021-07-17] MEDS ORDERED: LIDOCAINE 5% (LIDODERM) PATCH TD ONE (12:55)
[2021-07-17] MEDS ORDERED: ACETAMINOPHEN TAB 650MG DOSE (2X325MG) PO PRN (13:00)
[2021-07-17] MEDS: DOXYCYCLINE HYCLATE 100MG TABLET PO SCH ×2 (14:08→21:28)
[2021-07-17 15:00] VITALS: BP 134/68
[2021-07-17] MEDS: LEVALBUTEROL 1.25 MG/0.5 ML CONCENTRATE NEB INH SCH ×2 (15:30→19:21)
[2021-07-17] MEDS: methylPREDNISolone 40MG 1ML VIAL IV SCH ×2 (17:23→23:41)
[2021-07-17] MEDS: SYMBICORT 160/4.5MCG INHALER 6GM INH SCH (19:20)
[2021-07-17 20:31] VITALS: BP 149/64
[2021-07-17] MEDS: ASPIRIN 81MG ENTERIC TABLET PO SCH (21:27)
[2021-07-17] MEDS: METOPROLOL SUCC *XL* 25MG TAB (TopROL *XL*) PO SCH (21:29)
[2021-07-17] MEDS: ATORVASTATIN 20 MG TAB PO SCH (21:31)
[2021-07-17] MEDS: **NOTE PATIENT COMMENT** MISC XX SCH (21:31)
[2021-07-18 05:04] VITALS: BP 116/68
[2021-07-18] MEDS: methylPREDNISolone 40MG 1ML VIAL IV SCH ×3 (05:33→17:38)
[2021-07-18] MEDS: TIOTROPIUM INHALER/CAPSULE (SPIRIVA) INH SCH (07:28)
[2021-07-18] MEDS: LEVALBUTEROL 1.25 MG/0.5 ML CONCENTRATE NEB INH SCH ×4 (07:28→19:16)
[2021-07-18] MEDS: SYMBICORT 160/4.5MCG INHALER 6GM INH SCH ×2 (07:28→19:17)
[2021-07-18] MEDS: DOXYCYCLINE HYCLATE 100MG TABLET PO SCH ×2 (08:29→21:39)
[2021-07-18] MEDS: CLOPIDOGREL 75 MG TAB PO SCH (08:29)
[2021-07-18] MEDS: LORATADINE 10 MG TAB PO SCH (08:30)
[2021-07-18] MEDS: ENOXAPARIN 40MG/0.4ML SYRINGE (J1650 PER 10MG) SC SCH (08:43)
[2021-07-18] MEDS ORDERED: ENOXAPARIN 30MG/0.3ML SYRINGE (J1650 PER 10MG) SC SCH ×2 (09:00)
[2021-07-18] MEDS ORDERED: TORSEMIDE 20 MG TAB PO SCH (09:00)
[2021-07-18 10:05] LABS: BASO % 0.2 % (0.0-1.0); EOS # 0.1 10^3/uL (0.0-0.5); EOS % 0.6 % (0.0-3.0); HEMATOCRIT 29.7 % (42.0-52.0); HEMOGLOBIN 9.4 g/dl (13.5-17.5); LYMPH # 0.3 10^3/uL (1.5-5.0); LYMPH % 1.8 % (24.0-44.0); MEAN CORPUSCULAR HEMOGLOBIN 30.4 pg (27.0-33.0); MEAN CORPUSCULAR HGB CONC 31.6 g/dl (32.0-36.5); MEAN CORPUSCULAR VOLUME 96.1 fl (80.0-96.0); MONO # 0.4 10^3/uL (0.0-0.8); MONO % 2.1 % (2.0-8.0); NEUTROPHILS # 16.7 10^3/uL (1.5-8.5); NEUTROPHILS % 93.6 % (36.0-66.0); PLATELET COUNT, AUTOMATED 300 10^3/uL (150-450); RED BLOOD COUNT 3.09 10^6/uL (4.30-6.10); WHITE BLOOD COUNT 17.9 10^3/uL (4.0-10.0)
[2021-07-18 10:28] LABS: CALCIUM LEVEL 8.9 MG/DL (8.8-10.2); CREATININE FOR GFR 1.98 MG/DL (0.70-1.30)
[2021-07-18] MEDS ORDERED: DEXTROSE 50% 50 ML SYRINGE IV PRN (13:30)
[2021-07-18] MEDS ORDERED: GLUCAGON INJ 1MG VIAL SC PRN (13:30)
[2021-07-18] MEDS ORDERED: GLUCOSE 4GM CHEW TABLET PO PRN (13:30)
[2021-07-18 14:00] VITALS: BP 141/67
[2021-07-18] MEDS: HumaLOG INSULIN (NovoLOG) PER UNIT SC SCH ×3 (14:22→21:40)
[2021-07-18 19:59] VITALS: BP 137/69
[2021-07-18] MEDS: ATORVASTATIN 20 MG TAB PO SCH (21:39)
[2021-07-18] MEDS: ASPIRIN 81MG ENTERIC TABLET PO SCH (21:39)
[2021-07-18] MEDS: METOPROLOL SUCC *XL* 25MG TAB (TopROL *XL*) PO SCH (21:40)
[2021-07-18] MEDS: **NOTE PATIENT COMMENT** MISC XX SCH (21:51)
[2021-07-19] MEDS: LEVALBUTEROL 1.25 MG/0.5 ML CONCENTRATE NEB INH SCH ×6 (00:23→19:12)
[2021-07-19] MEDS: methylPREDNISolone 40MG 1ML VIAL IV SCH ×2 (01:09→06:16)
[2021-07-19 05:51] LABS: BASO % 0.2 % (0.0-1.0); HEMATOCRIT 28.4 % (42.0-52.0); HEMOGLOBIN 8.9 g/dl (13.5-17.5); LYMPH # 0.4 10^3/uL (1.5-5.0); LYMPH % 1.9 % (24.0-44.0); MEAN CORPUSCULAR HEMOGLOBIN 30.3 pg (27.0-33.0); MEAN CORPUSCULAR HGB CONC 31.3 g/dl (32.0-36.5); MEAN CORPUSCULAR VOLUME 96.6 fl (80.0-96.0); MONO # 0.4 10^3/uL (0.0-0.8); MONO % 2.3 % (2.0-8.0); NEUTROPHILS # 17.5 10^3/uL (1.5-8.5); NEUTROPHILS % 92.8 % (36.0-66.0); PLATELET COUNT, AUTOMATED 308 10^3/uL (150-450); RED BLOOD COUNT 2.94 10^6/uL (4.30-6.10); WHITE BLOOD COUNT 18.8 10^3/uL (4.0-10.0)
[2021-07-19 06:00] VITALS: BP 136/73
[2021-07-19 06:10] LABS: CREATININE FOR GFR 1.96 MG/DL (0.70-1.30); GLOMERULAR FILTRATION RATE 35.4 (>42); POTASSIUM SERUM 4.8 MEQ/L (3.5-5.1)
[2021-07-19] MEDS: TIOTROPIUM INHALER/CAPSULE (SPIRIVA) INH SCH (07:40)
[2021-07-19] MEDS: SYMBICORT 160/4.5MCG INHALER 6GM INH SCH ×2 (07:41→19:12)
[2021-07-19] MEDS: ENOXAPARIN 40MG/0.4ML SYRINGE (J1650 PER 10MG) SC SCH (07:58)
[2021-07-19] MEDS: HumaLOG INSULIN (NovoLOG) PER UNIT SC SCH ×4 (07:59→22:09)
[2021-07-19] MEDS: LORATADINE 10 MG TAB PO SCH (08:00)
[2021-07-19] MEDS: DOXYCYCLINE HYCLATE 100MG TABLET PO SCH ×2 (08:00→22:07)
[2021-07-19] MEDS: TORSEMIDE 20 MG TAB PO SCH ×2 (08:00→08:19)
[2021-07-19] MEDS: CLOPIDOGREL 75 MG TAB PO SCH (08:00)
[2021-07-19] MEDS: predniSONE 50 MG TAB PO SCH (10:36)
[2021-07-19 14:00] VITALS: BP 137/71
[2021-07-19 20:29] VITALS: BP 136/71
[2021-07-19] MEDS: **NOTE PATIENT COMMENT** MISC XX SCH (21:00)
[2021-07-19] MEDS: ASPIRIN 81MG ENTERIC TABLET PO SCH (22:08)
[2021-07-19] MEDS: METOPROLOL SUCC *XL* 25MG TAB (TopROL *XL*) PO SCH (22:08)
[2021-07-19] MEDS: ATORVASTATIN 20 MG TAB PO SCH (22:08)
[2021-07-20] MEDS: LEVALBUTEROL 1.25 MG/0.5 ML CONCENTRATE NEB INH SCH ×5 (04:05→19:55)
[2021-07-20 05:48] VITALS: BP 132/70
[2021-07-20 05:57] LABS: BASO # 0.1 10^3/uL (0.0-0.2); BASO % 0.3 % (0.0-1.0); EOS % 0.1 % (0.0-3.0); HEMATOCRIT 26.4 % (42.0-52.0); HEMOGLOBIN 8.2 g/dl (13.5-17.5); LYMPH # 0.8 10^3/uL (1.5-5.0); MEAN CORPUSCULAR HEMOGLOBIN 30.1 pg (27.0-33.0); MEAN CORPUSCULAR HGB CONC 31.1 g/dl (32.0-36.5); MEAN CORPUSCULAR VOLUME 97.1 fl (80.0-96.0); MONO # 1.3 10^3/uL (0.0-0.8); MONO % 6.1 % (2.0-8.0); NEUTROPHILS # 17.9 10^3/uL (1.5-8.5); NEUTROPHILS % 84.7 % (36.0-66.0); PLATELET COUNT, AUTOMATED 307 10^3/uL (150-450); RED BLOOD COUNT 2.72 10^6/uL (4.30-6.10); WHITE BLOOD COUNT 21.1 10^3/uL (4.0-10.0)
[2021-07-20 06:16] LABS: CALCIUM LEVEL 8.9 MG/DL (8.8-10.2); CREATININE FOR GFR 1.76 MG/DL (0.70-1.30); GLOMERULAR FILTRATION RATE 40.1 (>42); POTASSIUM SERUM 4.7 MEQ/L (3.5-5.1)
[2021-07-20] MEDS: TIOTROPIUM INHALER/CAPSULE (SPIRIVA) INH SCH (08:04)
[2021-07-20] MEDS: SYMBICORT 160/4.5MCG INHALER 6GM INH SCH ×2 (08:04→19:55)
[2021-07-20] MEDS: TORSEMIDE 20 MG TAB PO SCH ×2 (08:17→09:27)
[2021-07-20] MEDS: predniSONE 50 MG TAB PO SCH (08:20)
[2021-07-20] MEDS: LORATADINE 10 MG TAB PO SCH (08:20)
[2021-07-20] MEDS: CLOPIDOGREL 75 MG TAB PO SCH (08:20)
[2021-07-20] MEDS: HumaLOG INSULIN (NovoLOG) PER UNIT SC SCH ×4 (08:20→21:00)
[2021-07-20] MEDS: DOXYCYCLINE HYCLATE 100MG TABLET PO SCH ×2 (08:20→21:32)
[2021-07-20] MEDS: ASCORBIC ACID 500 MG TAB PO SCH ×2 (10:09→21:32)
[2021-07-20] MEDS: FERROUS SULFATE 325MG TAB PO SCH ×2 (10:09→21:32)
[2021-07-20 12:25] LABS: HEMATOCRIT 28.4 % (42.0-52.0)
[2021-07-20 12:56] LABS: HEMOGLOBIN A1c 6.3 %
[2021-07-20 13:01] LABS: CALCIUM LEVEL 8.9 MG/DL (8.8-10.2); CREATININE FOR GFR 1.87 MG/DL (0.70-1.30); GLOMERULAR FILTRATION RATE 37.4 (>42); POTASSIUM SERUM 4.5 MEQ/L (3.5-5.1)
[2021-07-20] MEDS ORDERED: PRED10TA2 PO (13:26)
[2021-07-20 15:23] VITALS: BP 137/73
[2021-07-20] MEDS: **NOTE PATIENT COMMENT** MISC XX SCH (21:00)
[2021-07-20] MEDS: ASPIRIN 81MG ENTERIC TABLET PO SCH (21:32)
[2021-07-20] MEDS: ATORVASTATIN 20 MG TAB PO SCH (21:32)
[2021-07-20 21:34] VITALS: BP 131/61
[2021-07-20] MEDS: METOPROLOL SUCC *XL* 25MG TAB (TopROL *XL*) PO SCH (21:34)
[2021-07-20 22:00] VITALS: BP 131/61
[2021-07-21] MEDS: LEVALBUTEROL 1.25 MG/0.5 ML CONCENTRATE NEB INH SCH ×4 (04:57→11:16)
[2021-07-21 05:30] VITALS: BP 124/62
[2021-07-21 06:33] LABS: CALCIUM LEVEL 8.5 MG/DL (8.8-10.2); CREATININE FOR GFR 1.85 MG/DL (0.70-1.30); GLOMERULAR FILTRATION RATE 37.8 (>42); POTASSIUM SERUM 4.3 MEQ/L (3.5-5.1)
[2021-07-21] MEDS: TIOTROPIUM INHALER/CAPSULE (SPIRIVA) INH SCH (07:22)
[2021-07-21] MEDS: SYMBICORT 160/4.5MCG INHALER 6GM INH SCH (07:22)
[2021-07-21] MEDS: HumaLOG INSULIN (NovoLOG) PER UNIT SC SCH (07:30)
[2021-07-21] MEDS ORDERED: PRED20TA PO (08:55)
[2021-07-21] MEDS ORDERED: AMOX875T2 PO (08:55)
[2021-07-21] MEDS ORDERED: ALBU83IN INH (08:55)
[2021-07-21] MEDS ORDERED: ALPRAZolam 0.25 MG TAB PO ONE (09:00)
[2021-07-21] MEDS: FERROUS SULFATE 325MG TAB PO SCH (09:06)
[2021-07-21] MEDS: ASCORBIC ACID 500 MG TAB PO SCH (09:06)
[2021-07-21] MEDS: TORSEMIDE 20 MG TAB PO SCH (09:07)
[2021-07-21] MEDS: predniSONE 50 MG TAB PO SCH (09:07)
[2021-07-21] MEDS: DOXYCYCLINE HYCLATE 100MG TABLET PO SCH (09:07)
[2021-07-21] MEDS: CLOPIDOGREL 75 MG TAB PO SCH (09:07)
[2021-07-21] MEDS: LORATADINE 10 MG TAB PO SCH (09:07)
== END 2021-07-21 12:07 | disposition home health service (06) | DRG 191 ==
LOC: M ED 09:43 → M ED INP 12:36 → ENRESERV 13:02 → M MSPAV 14:46
PROVIDERS: ADMIT Internal Medicine Nephrology; ATTEND Internal Medicine
DX: J44.1 Chronic obstructive pulmonary disease with (acute) exacerbation (principal); I13.0 Hypertensive heart and chronic kidney disease with heart failure and stage 1 through stage 4 chronic kidney disease, or unspecified chronic kidney disease; N17.9 Acute kidney failure, unspecified; E87.0 Hyperosmolality and hypernatremia; K57.90 Diverticulosis of intestine, part unspecified, without perforation or abscess without bleeding; Z95.0 Presence of cardiac pacemaker; N18.30 Chronic kidney disease, stage 3 unspecified; G47.33 Obstructive sleep apnea (adult) (pediatric); I25.10 Atherosclerotic heart disease of native coronary artery without angina pectoris; R09.02 Hypoxemia; I50.810 Right heart failure, unspecified; I27.81 Cor pulmonale (chronic); D50.9 Iron deficiency anemia, unspecified; E86.0 Dehydration; Z79.82 Long term (current) use of aspirin; Z79.899 Other long term (current) drug therapy; Z88.8 Allergy status to other drugs, medicaments and biological substances; E66.9 Obesity, unspecified; R91.1 Solitary pulmonary nodule; K64.8 Other hemorrhoids; M54.2 Cervicalgia; M96.1 Postlaminectomy syndrome, not elsewhere classified; I25.2 Old myocardial infarction; Z95.2 Presence of prosthetic heart valve; Z98.41 Cataract extraction status, right eye; Z98.42 Cataract extraction status, left eye

== ENCOUNTER → 2021-07-25 | Outpatient (CLI) | payer MEDICARE ==
[~2021-07-25] MED LIST changes: +ALBU83IN INH; +AMOX875T2 PO; +FERR32TA PO; +PRED20TA PO; +TORS20TA2 PO
[2021-07-25 14:01] LABS: BASO # 0.1 10^3/uL (0.0-0.2); BASO % 0.4 % (0.0-1.0); EOS % 0.1 % (0.0-3.0); HEMATOCRIT 28.5 % (42.0-52.0); HEMOGLOBIN 8.9 g/dl (13.5-17.5); LYMPH # 0.4 10^3/uL (1.5-5.0); LYMPH % 1.9 % (24.0-44.0); MEAN CORPUSCULAR HEMOGLOBIN 30.6 pg (27.0-33.0); MEAN CORPUSCULAR HGB CONC 31.2 g/dl (32.0-36.5); MEAN CORPUSCULAR VOLUME 97.9 fl (80.0-96.0); MONO # 0.6 10^3/uL (0.0-0.8); MONO % 2.3 % (2.0-8.0); NEUTROPHILS % 89.3 % (36.0-66.0); PLATELET COUNT, AUTOMATED 345 10^3/uL (150-450); RED BLOOD COUNT 2.91 10^6/uL (4.30-6.10); WHITE BLOOD COUNT 23.5 10^3/uL (4.0-10.0)
[2021-07-25 14:29] LABS: ALBUMIN 3.6 GM/DL (3.2-5.2); BILIRUBIN,TOTAL 0.4 MG/DL (0.2-1.0); CALCIUM LEVEL 9.1 MG/DL (8.8-10.2); CREATININE FOR GFR 1.92 MG/DL (0.70-1.30); GLOMERULAR FILTRATION RATE 36.2 (>42); POTASSIUM SERUM 4.8 MEQ/L (3.5-5.1); TOTAL PROTEIN 6.5 GM/DL (6.4-8.2)
== END ==
LOC: M PLALAB 11:19
PROVIDERS: ATTEND Internal Medicine Hematology
DX: J44.9 Chronic obstructive pulmonary disease, unspecified (principal)

== ENCOUNTER 2021-07-26 11:58 | Outpatient (CLI) | payer MEDICARE ==
[~2021-07-26 11:58] MED LIST changes: +ALBUTEROL SULFATE 2.5 MG/0.5 ML INH NEB SOLN INH PRN; +EPINEPHrine INJ 1 MG/ML 1ML AMP IM PRN; +diphenhydrAMINE 50MG/ML VIAL (J1200) IV PRN; +methylPREDNISolone 125MG 2ML VIAL IV PRN
[2021-07-26] MEDS ORDERED: ACETAMINOPHEN TAB 650MG DOSE (2X325MG) PO ONE (12:30)
[2021-07-26] MEDS ORDERED: NS 1,000 ML IV SCH (12:30)
[2021-07-26] MEDS ORDERED: FERRIC CARBOXYMALTOSE INJ 750 MG, VIAL MATE ADAPTER 1 EACH in NS 250 ML IV ONE (12:30)
[2021-07-26] MEDS ORDERED: methylPREDNISolone 125MG 2ML VIAL IV ONE (12:30)
[2021-07-26 12:42] VITALS: BP 154/64
[2021-07-26 13:51] VITALS: BP 119/56
== END 2021-07-26 14:05 | disposition home or self-care (01) ==
LOC: M INFU 11:58
PROVIDERS: ATTEND Internal Medicine Hematology
DX: D50.9 Iron deficiency anemia, unspecified (principal); Z88.9 Allergy status to unspecified drugs, medicaments and biological substances
CPT/HCPCS: 96365; 96367; J1439; J2930

== ENCOUNTER 2021-08-02 12:32 | Outpatient (CLI) | payer MEDICARE ==
[~2021-08-02] VITALS: Ht 167.6 cm; Wt 96.0 kg
[~2021-08-02 12:32] MED LIST changes: +ALBUTEROL SULFATE 2.5 MG/0.5 ML INH NEB SOLN INH PRN; +EPINEPHrine INJ 1 MG/ML 1ML AMP IM PRN; +diphenhydrAMINE 50MG/ML VIAL (J1200) IV PRN; +methylPREDNISolone 125MG 2ML VIAL IV PRN
[2021-08-02 12:45] VITALS: BP 135/60
[2021-08-02] MEDS ORDERED: ACETAMINOPHEN TAB 650MG DOSE (2X325MG) PO ONE (13:00)
[2021-08-02] MEDS ORDERED: NS 1,000 ML IV SCH (13:00)
[2021-08-02] MEDS ORDERED: FERRIC CARBOXYMALTOSE INJ 750 MG, VIAL MATE ADAPTER 1 EACH in NS 250 ML IV ONE (13:00)
[2021-08-02] MEDS ORDERED: methylPREDNISolone 125MG 2ML VIAL IV ONE (13:00)
[2021-08-02 14:30] VITALS: BP 135/66
== END 2021-08-02 14:30 | disposition home or self-care (01) ==
LOC: M INFU 12:32
PROVIDERS: ATTEND Internal Medicine Hematology
DX: D50.9 Iron deficiency anemia, unspecified (principal); Z88.9 Allergy status to unspecified drugs, medicaments and biological substances
CPT/HCPCS: 96365; 96367; J1439; J2930

== ENCOUNTER → 2021-08-02 | Outpatient (CLI) | payer MEDICARE ==
[~2021-08-02] MED LIST changes: -ALBUTEROL SULFATE 2.5 MG/0.5 ML INH NEB SOLN INH PRN; -EPINEPHrine INJ 1 MG/ML 1ML AMP IM PRN; -diphenhydrAMINE 50MG/ML VIAL (J1200) IV PRN; -methylPREDNISolone 125MG 2ML VIAL IV PRN
[2021-08-02 10:28] LABS: BASO % 0.2 % (0.0-1.0); EOS # 0.1 10^3/uL (0.0-0.5); EOS % 0.9 % (0.0-3.0); HEMATOCRIT 28.9 % (42.0-52.0); LYMPH # 0.6 10^3/uL (1.5-5.0); LYMPH % 4.8 % (24.0-44.0); MEAN CORPUSCULAR HEMOGLOBIN 31.9 pg (27.0-33.0); MEAN CORPUSCULAR HGB CONC 31.1 g/dl (32.0-36.5); MEAN CORPUSCULAR VOLUME 102.5 fl (80.0-96.0); MONO # 0.9 10^3/uL (0.0-0.8); NEUTROPHILS # 10.8 10^3/uL (1.5-8.5); NEUTROPHILS % 83.2 % (36.0-66.0); PLATELET COUNT, AUTOMATED 265 10^3/uL (150-450); RED BLOOD COUNT 2.82 10^6/uL (4.30-6.10)
[2021-08-02 11:11] LABS: ALBUMIN 3.2 GM/DL (3.2-5.2); BILIRUBIN,TOTAL 0.4 MG/DL (0.2-1.0); CREATININE FOR GFR 1.65 MG/DL (0.70-1.30); GLOMERULAR FILTRATION RATE 43.2 (>42); POTASSIUM SERUM 4.2 MEQ/L (3.5-5.1); TOTAL PROTEIN 5.9 GM/DL (6.4-8.2)
== END ==
LOC: M PLALAB 09:03
PROVIDERS: ATTEND Internal Medicine Hematology
DX: D72.9 Disorder of white blood cells, unspecified (principal); D50.0 Iron deficiency anemia secondary to blood loss (chronic)

== ENCOUNTER → 2021-08-09 | Outpatient (CLI) | payer MEDICARE ==
[~2021-08-09] MED LIST changes: +ALBU2.5V10 INH; -ALBU83IN INH; -ALBUTEROL SULFATE 2.5 MG/0.5 ML INH NEB SOLN INH PRN; -EPINEPHrine INJ 1 MG/ML 1ML AMP IM PRN; -diphenhydrAMINE 50MG/ML VIAL (J1200) IV PRN; -methylPREDNISolone 125MG 2ML VIAL IV PRN
[2021-08-09 11:37] LABS: CALCIUM LEVEL 8.2 MG/DL (8.8-10.2); CREATININE FOR GFR 1.61 MG/DL (0.70-1.30); GLOMERULAR FILTRATION RATE 44.4 (>42)
== END ==
LOC: M PLALAB 07:55
PROVIDERS: ATTEND Physician Assistant
DX: I27.81 Cor pulmonale (chronic) (principal); I50.32 Chronic diastolic (congestive) heart failure

== ENCOUNTER → 2021-08-12 | Outpatient (CLI) | payer MEDICARE ==
[~2021-08-12] MED LIST changes: +ISOVUE-370 76% 100ML VIAL As Ordered ONE
== END ==
LOC: M RAD 12:32
PROVIDERS: ATTEND Internal Medicine Hematology
DX: N28.89 Other specified disorders of kidney and ureter (principal); R91.8 Other nonspecific abnormal finding of lung field; K86.89 Other specified diseases of pancreas; N28.1 Cyst of kidney, acquired; I77.4 Celiac artery compression syndrome; I70.0 Atherosclerosis of aorta
CPT/HCPCS: 74170; Q9967

== ENCOUNTER → 2021-08-25 | Outpatient (CLI) | payer MEDICARE ==
[~2021-08-25] MED LIST changes: -ISOVUE-370 76% 100ML VIAL As Ordered ONE
[2021-08-25 16:03] LABS: CALCIUM LEVEL 8.4 MG/DL (8.8-10.2); CREATININE FOR GFR 2.37 MG/DL (0.70-1.30); GLOMERULAR FILTRATION RATE 28.4 (>42); POTASSIUM SERUM 4.2 MEQ/L (3.5-5.1)
== END ==
LOC: M PLALAB 12:08
PROVIDERS: ATTEND Internal Medicine Hematology
DX: I10 Essential (primary) hypertension (principal)

== ENCOUNTER 2021-08-27 10:22 | Inpatient (IN) | payer MEDICARE ==
[~2021-08-27] VITALS: Ht 170.2 cm; Wt 92.5 kg
[2021-08-27 11:43] LABS: HEMATOCRIT 23.3 % (42.0-52.0); HEMOGLOBIN 7.6 g/dl (13.5-17.5); MEAN CORPUSCULAR HEMOGLOBIN 33.8 pg (27.0-33.0); MEAN CORPUSCULAR HGB CONC 32.6 g/dl (32.0-36.5); MEAN CORPUSCULAR VOLUME 103.6 fl (80.0-96.0); PLATELET COUNT, AUTOMATED 359 10^3/uL (150-450); RED BLOOD COUNT 2.25 10^6/uL (4.30-6.10); WHITE BLOOD COUNT 11.6 10^3/uL (4.0-10.0)
[2021-08-27 12:05] LABS: ATYPICAL LYMPH 1 % (0-5); BASOPHILS 1 % (0-1); GIANT PLATELETS 1+; LYMPHOCYTES 3 % (16-44); METAMYELOCYTES 3 % (0-0); MONOCYTES 10 % (0-5); MYELOCYTES 2 % (0-0); NEUTROPHILS 75 % (28-66)
[2021-08-27 12:07] LABS: OVALOCYTES 1+; PLATELET ESTIMATE NORMAL (NORMAL); POLYCHROMASIA 1+
[2021-08-27 12:10] LABS: ERYTHROCYTE SEDIMENTATION RATE 126 mm/hr (0-20)
[2021-08-27 12:15] LABS: C REACTIVE PROTEIN QUANTITATIV 9.43 MG/DL (0.00-0.30); CALCIUM LEVEL 8.5 MG/DL (8.8-10.2); CREATININE FOR GFR 2.09 MG/DL (0.70-1.30); GLOMERULAR FILTRATION RATE 32.9 (>42); POTASSIUM SERUM 4.7 MEQ/L (3.5-5.1); URIC ACID 13.2 MG/DL (3.5-7.2)
[2021-08-27] MEDS ORDERED: dexameTHASONE 20MG/5ML VIAL (J1100 PER 1MG) IV ONE (12:45)
[2021-08-27 13:05] LABS: RSV AMPLIFICATION NEGATIVE (NEGATIVE)
[2021-08-27] MEDS ORDERED: MONT10TA97 PO (13:24)
[2021-08-27] MEDS ORDERED: DALI250T PO (13:24)
[2021-08-27] MEDS ORDERED: CLON0.5T2 PO (13:24)
[2021-08-27] MEDS ORDERED: PERCOCET 5MG/325MG TAB PO PRN (13:30)
[2021-08-27] MEDS ORDERED: NORCO, ANEXSIA 5/325MG TABLET (HYDROcodone/ACETAMINOPHEN) PO PRN (13:30)
[2021-08-27] MEDS ORDERED: ALBUTEROL SULFATE 2.5 MG/0.5 ML INH NEB SOLN NEB PRN (13:30)
[2021-08-27] MEDS ORDERED: FERR1TAB8 PO (14:02)
[2021-08-27] MEDS ORDERED: ALBU2.5V10 NEB (14:02)
[2021-08-27] MEDS ORDERED: HOME MED LIST COMPLETE! XX SCH (14:05)
[2021-08-27 14:50] VITALS: BP 104/58
[2021-08-27 15:05] VITALS: BP 130/68
[2021-08-27 16:14] VITALS: BP 114/63
[2021-08-27 16:15] VITALS: BP 114/63
[2021-08-27 17:30] VITALS: BP 133/82
[2021-08-27] MEDS: LEVALBUTEROL 1.25 MG/0.5 ML CONCENTRATE NEB INH SCH (19:53)
[2021-08-27] MEDS ORDERED: FUROSEMIDE 100MG/10ML VIAL (J1940) IV ONE (21:00)
[2021-08-27] MEDS ORDERED: ASPIRIN 81MG ENTERIC TABLET PO SCH (21:00)
[2021-08-27] MEDS ORDERED: ATORVASTATIN 20 MG TAB PO SCH (21:00)
[2021-08-27] MEDS ORDERED: MONTELUKAST 10 MG TAB PO SCH (21:00)
[2021-08-27] MEDS: DOCUSATE SODIUM 100MG CAPSULE PO SCH (21:21)
[2021-08-27 22:00] VITALS: BP 117/64
[2021-08-28 02:43] VITALS: BP 130/66
[2021-08-28 02:58] VITALS: BP 122/62
[2021-08-28 03:43] VITALS: BP 120/63
[2021-08-28 04:00] VITALS: BP 120/63
[2021-08-28 04:43] VITALS: BP 111/62
[2021-08-28 05:18] VITALS: BP 110/62
[2021-08-28 06:11] LABS: HEMATOCRIT 26.9 % (42.0-52.0); HEMOGLOBIN 8.7 g/dl (13.5-17.5); MEAN CORPUSCULAR HEMOGLOBIN 31.4 pg (27.0-33.0); MEAN CORPUSCULAR HGB CONC 32.3 g/dl (32.0-36.5); MEAN CORPUSCULAR VOLUME 97.1 fl (80.0-96.0); PLATELET COUNT, AUTOMATED 304 10^3/uL (150-450); RED BLOOD COUNT 2.77 10^6/uL (4.30-6.10); WHITE BLOOD COUNT 8.9 10^3/uL (4.0-10.0)
[2021-08-28 06:36] LABS: ATYPICAL LYMPH 1 % (0-5); LYMPHOCYTES 7 % (16-44); MONOCYTES 7 % (0-5); MYELOCYTES 3 % (0-0); NEUTROPHILS 82 % (28-66); PLATELET ESTIMATE NORMAL (NORMAL)
[2021-08-28 06:37] LABS: ANISOCYTOSIS 2+; POIKILOCYTOSIS 1+; POLYCHROMASIA 1+
[2021-08-28 06:42] LABS: CALCIUM LEVEL 8.1 MG/DL (8.8-10.2); CREATININE FOR GFR 1.79 MG/DL (0.70-1.30); GLOMERULAR FILTRATION RATE 39.3 (>42); POTASSIUM SERUM 4.8 MEQ/L (3.5-5.1)
[2021-08-28] MEDS: LEVALBUTEROL 1.25 MG/0.5 ML CONCENTRATE NEB INH SCH (07:45)
[2021-08-28] MEDS ORDERED: TIOTROPIUM INHALER/CAPSULE (SPIRIVA) INH SCH (08:00)
[2021-08-28] MEDS ORDERED: FLUTICASONE HFA 220 MCG 12 GM INHALER (FLOVENT) INH SCH (08:00)
[2021-08-28] MEDS ORDERED: TORSEMIDE 20 MG TAB PO SCH (09:00)
[2021-08-28] MEDS ORDERED: CLOPIDOGREL 75 MG TAB PO SCH (09:00)
[2021-08-28] MEDS ORDERED: LORATADINE 10 MG TAB PO SCH (09:00)
[2021-08-28] MEDS ORDERED: predniSONE 20 MG TAB PO SCH (09:00)
[2021-08-28] MEDS ORDERED: FERROUS SULFATE 325MG TAB PO SCH (09:00)
[2021-08-28] MEDS ORDERED: PRED10TA2 PO (09:02)
[2021-08-28] MEDS ORDERED: PERC5TAB12 PO (09:02)
[2021-08-28] MEDS: DOCUSATE SODIUM 100MG CAPSULE PO SCH (09:52)
[2021-08-28] MEDS ORDERED: FOLI1TAB11 PO (12:00)
== END 2021-08-28 11:25 | disposition home or self-care (01) | DRG 554 ==
LOC: M ED 10:22 → M ED INP 13:28 → ENRESERV 15:21 → M MS5PR 16:15
PROVIDERS: ADMIT Internal Medicine Nephrology; ATTEND Internal Medicine Nephrology
PROC: 30233N1 Transfusion of Nonautologous Red Blood Cells into Peripheral Vein, Percutaneous Approach (ICD-10-PCS; principal; 2021-08-27)
DX: M10.9 Gout, unspecified (principal); D50.0 Iron deficiency anemia secondary to blood loss (chronic); J44.9 Chronic obstructive pulmonary disease, unspecified; I27.81 Cor pulmonale (chronic); G47.33 Obstructive sleep apnea (adult) (pediatric); N18.32 Chronic kidney disease, stage 3b; E53.8 Deficiency of other specified B group vitamins; I25.10 Atherosclerotic heart disease of native coronary artery without angina pectoris; Z95.0 Presence of cardiac pacemaker; M54.50 Low back pain, unspecified; G89.29 Other chronic pain; R91.1 Solitary pulmonary nodule; I12.9 Hypertensive chronic kidney disease with stage 1 through stage 4 chronic kidney disease, or unspecified chronic kidney disease; Z20.822 Contact with and (suspected) exposure to COVID-19; Z79.82 Long term (current) use of aspirin; Z79.899 Other long term (current) drug therapy; Z79.52 Long term (current) use of systemic steroids; Z88.1 Allergy status to other antibiotic agents; I25.2 Old myocardial infarction; E66.9 Obesity, unspecified; I73.9 Peripheral vascular disease, unspecified; M43.26 Fusion of spine, lumbar region; M54.2 Cervicalgia; M96.1 Postlaminectomy syndrome, not elsewhere classified; Z95.5 Presence of coronary angioplasty implant and graft; Z90.49 Acquired absence of other specified parts of digestive tract; Z98.41 Cataract extraction status, right eye; Z98.42 Cataract extraction status, left eye; Z87.891 Personal history of nicotine dependence; M54.17 Radiculopathy, lumbosacral region; I77.1 Stricture of artery; I71.4 Abdominal aortic aneurysm, without rupture

== ENCOUNTER → 2021-08-29 | Outpatient (CLI) | payer MEDICARE ==
[~2021-08-29] MED LIST changes: +ALBU2.5V10 NEB; +CLON0.5T2 PO; +DALI250T PO; +FERR1TAB8 PO; +FOLI1TAB11 PO; +MONT10TA97 PO; +PERC5TAB12 PO
[2021-08-29 11:02] LABS: CALCIUM LEVEL 9.1 MG/DL (8.8-10.2); CREATININE FOR GFR 1.84 MG/DL (0.70-1.30); GLOMERULAR FILTRATION RATE 38.1 (>42); POTASSIUM SERUM 4.2 MEQ/L (3.5-5.1)
== END ==
LOC: M PLALAB 07:30
PROVIDERS: ATTEND Internal Medicine Hematology
DX: N17.9 Acute kidney failure, unspecified (principal)

== ENCOUNTER → 2021-08-31 | Outpatient (CLI) | payer MEDICARE ==
[2021-08-31 10:53] LABS: BASO # 0.1 10^3/uL (0.0-0.2); BASO % 0.8 % (0.0-1.0); EOS % 0.2 % (0.0-3.0); HEMATOCRIT 30.2 % (42.0-52.0); HEMOGLOBIN 9.3 g/dl (13.5-17.5); LYMPH # 0.4 10^3/uL (1.5-5.0); LYMPH % 2.1 % (24.0-44.0); MEAN CORPUSCULAR HEMOGLOBIN 31.7 pg (27.0-33.0); MEAN CORPUSCULAR HGB CONC 30.8 g/dl (32.0-36.5); MEAN CORPUSCULAR VOLUME 103.1 fl (80.0-96.0); MONO # 0.7 10^3/uL (0.0-0.8); MONO % 3.9 % (2.0-8.0); NEUTROPHILS # 14.4 10^3/uL (1.5-8.5); NEUTROPHILS % 85.3 % (36.0-66.0); PLATELET COUNT, AUTOMATED 384 10^3/uL (150-450); RED BLOOD COUNT 2.93 10^6/uL (4.30-6.10); WHITE BLOOD COUNT 16.9 10^3/uL (4.0-10.0)
[2021-08-31 11:32] LABS: ALBUMIN 3.1 GM/DL (3.2-5.2); CALCIUM LEVEL 9.3 MG/DL (8.8-10.2); CREATININE FOR GFR 1.39 MG/DL (0.70-1.30); FREE T4 1.05 NG/DL (0.76-1.46); GLOMERULAR FILTRATION RATE 52.6 (>42); PERCENT SATURATION 86.8 % (19.7-50.0); POTASSIUM SERUM 4.4 MEQ/L (3.5-5.1); THYROID STIMULATING HORMONE 0.259 uIU/ML (0.358-3.740); TOTAL PROTEIN 6.5 GM/DL (6.4-8.2)
== END ==
LOC: M PLALAB 08:50
PROVIDERS: ATTEND Internal Medicine Hematology
DX: D50.0 Iron deficiency anemia secondary to blood loss (chronic) (principal); Z79.899 Other long term (current) drug therapy

== ENCOUNTER → 2021-08-31 | Outpatient (CLI) | payer MEDICARE ==
[~2021-08-31] MED LIST changes: +ISOVUE-370 76% 100ML VIAL As Ordered ONE
== END ==
LOC: M RAD 12:38
PROVIDERS: ATTEND Internal Medicine Hematology
DX: R91.8 Other nonspecific abnormal finding of lung field (principal)
CPT/HCPCS: 71260; Q9967

== ENCOUNTER → 2021-09-14 | Outpatient (CLI) | payer MEDICARE ==
[~2021-09-14] MED LIST changes: -ISOVUE-370 76% 100ML VIAL As Ordered ONE
[2021-09-14 10:41] LABS: BASO % 0.7 % (0.0-1.0); EOS # 0.2 10^3/uL (0.0-0.5); EOS % 3.3 % (0.0-3.0); HEMATOCRIT 29.5 % (42.0-52.0); LYMPH # 0.5 10^3/uL (1.5-5.0); LYMPH % 8.9 % (24.0-44.0); MEAN CORPUSCULAR HGB CONC 30.5 g/dl (32.0-36.5); MEAN CORPUSCULAR VOLUME 108.1 fl (80.0-96.0); MONO # 0.8 10^3/uL (0.0-0.8); MONO % 12.7 % (2.0-8.0); NEUTROPHILS # 4.3 10^3/uL (1.5-8.5); NEUTROPHILS % 70.9 % (36.0-66.0); PLATELET COUNT, AUTOMATED 222 10^3/uL (150-450); RED BLOOD COUNT 2.73 10^6/uL (4.30-6.10)
== END ==
LOC: M PLALAB 07:21
PROVIDERS: ATTEND Internal Medicine Hematology
DX: D50.0 Iron deficiency anemia secondary to blood loss (chronic) (principal)

== ENCOUNTER → 2021-09-28 | Outpatient (CLI) | payer MEDICARE ==
[2021-09-28 10:51] LABS: BASO # 0.1 10^3/uL (0.0-0.2); BASO % 1.2 % (0.0-1.0); EOS # 0.1 10^3/uL (0.0-0.5); HEMATOCRIT 35.9 % (42.0-52.0); HEMOGLOBIN 11.1 g/dl (13.5-17.5); LYMPH # 0.8 10^3/uL (1.5-5.0); LYMPH % 11.3 % (24.0-44.0); MEAN CORPUSCULAR HEMOGLOBIN 33.1 pg (27.0-33.0); MEAN CORPUSCULAR HGB CONC 30.9 g/dl (32.0-36.5); MEAN CORPUSCULAR VOLUME 107.2 fl (80.0-96.0); MONO # 0.9 10^3/uL (0.0-0.8); NEUTROPHILS # 4.7 10^3/uL (1.5-8.5); PLATELET COUNT, AUTOMATED 285 10^3/uL (150-450); RED BLOOD COUNT 3.35 10^6/uL (4.30-6.10); WHITE BLOOD COUNT 6.8 10^3/uL (4.0-10.0)
== END ==
LOC: M PLALAB 07:40
PROVIDERS: ATTEND Internal Medicine Hematology
DX: D50.0 Iron deficiency anemia secondary to blood loss (chronic) (principal)

== ENCOUNTER → 2021-10-12 | Outpatient (CLI) | payer MEDICARE ==
[2021-10-12 10:50] LABS: BASO # 0.1 10^3/uL (0.0-0.2); BASO % 1.2 % (0.0-1.0); EOS # 0.2 10^3/uL (0.0-0.5); EOS % 2.5 % (0.0-3.0); HEMATOCRIT 35.9 % (42.0-52.0); HEMOGLOBIN 11.4 g/dl (13.5-17.5); LYMPH % 11.5 % (24.0-44.0); MEAN CORPUSCULAR HEMOGLOBIN 34.1 pg (27.0-33.0); MEAN CORPUSCULAR HGB CONC 31.8 g/dl (32.0-36.5); MEAN CORPUSCULAR VOLUME 107.5 fl (80.0-96.0); MONO # 0.9 10^3/uL (0.0-0.8); MONO % 10.5 % (2.0-8.0); NEUTROPHILS # 6.1 10^3/uL (1.5-8.5); NEUTROPHILS % 71.8 % (36.0-66.0); PLATELET COUNT, AUTOMATED 260 10^3/uL (150-450); RED BLOOD COUNT 3.34 10^6/uL (4.30-6.10); WHITE BLOOD COUNT 8.5 10^3/uL (4.0-10.0)
== END ==
LOC: M PLALAB 07:21
PROVIDERS: ATTEND Internal Medicine Hematology
DX: D50.0 Iron deficiency anemia secondary to blood loss (chronic) (principal)

== ENCOUNTER → 2021-10-26 | Outpatient (CLI) | payer MEDICARE ==
[2021-10-26 11:05] LABS: BASO # 0.1 10^3/uL (0.0-0.2); BASO % 1.5 % (0.0-1.0); EOS # 0.3 10^3/uL (0.0-0.5); EOS % 3.9 % (0.0-3.0); HEMATOCRIT 32.6 % (42.0-52.0); HEMOGLOBIN 10.5 g/dl (13.5-17.5); LYMPH # 0.8 10^3/uL (1.5-5.0); LYMPH % 11.4 % (24.0-44.0); MEAN CORPUSCULAR HEMOGLOBIN 34.7 pg (27.0-33.0); MEAN CORPUSCULAR HGB CONC 32.2 g/dl (32.0-36.5); MEAN CORPUSCULAR VOLUME 107.6 fl (80.0-96.0); MONO # 0.8 10^3/uL (0.0-0.8); MONO % 10.7 % (2.0-8.0); NEUTROPHILS # 4.9 10^3/uL (1.5-8.5); NEUTROPHILS % 67.8 % (36.0-66.0); PLATELET COUNT, AUTOMATED 265 10^3/uL (150-450); RED BLOOD COUNT 3.03 10^6/uL (4.30-6.10); WHITE BLOOD COUNT 7.2 10^3/uL (4.0-10.0)
== END ==
LOC: M PLALAB 07:23
PROVIDERS: ATTEND Internal Medicine Hematology
DX: D50.0 Iron deficiency anemia secondary to blood loss (chronic) (principal)

== ENCOUNTER → 2021-11-09 | Outpatient (CLI) | payer MEDICARE ==
[2021-11-09 10:23] LABS: BASO # 0.1 10^3/uL (0.0-0.2); BASO % 0.9 % (0.0-1.0); EOS # 0.2 10^3/uL (0.0-0.5); EOS % 3.1 % (0.0-3.0); HEMATOCRIT 33.9 % (42.0-52.0); HEMOGLOBIN 10.8 g/dl (13.5-17.5); LYMPH # 0.7 10^3/uL (1.5-5.0); LYMPH % 9.6 % (24.0-44.0); MEAN CORPUSCULAR HEMOGLOBIN 34.4 pg (27.0-33.0); MEAN CORPUSCULAR HGB CONC 31.9 g/dl (32.0-36.5); MONO % 12.7 % (2.0-8.0); NEUTROPHILS # 5.4 10^3/uL (1.5-8.5); NEUTROPHILS % 71.6 % (36.0-66.0); PLATELET COUNT, AUTOMATED 278 10^3/uL (150-450); RED BLOOD COUNT 3.14 10^6/uL (4.30-6.10); WHITE BLOOD COUNT 7.5 10^3/uL (4.0-10.0)
== END ==
LOC: M PLALAB 07:32
PROVIDERS: ATTEND Internal Medicine Hematology
DX: D50.0 Iron deficiency anemia secondary to blood loss (chronic) (principal)

== ENCOUNTER → 2021-11-23 | Outpatient (CLI) | payer MEDICARE ==
[2021-11-23 10:08] LABS: BASO # 0.1 10^3/uL (0.0-0.2); BASO % 1.5 % (0.0-1.0); EOS # 0.2 10^3/uL (0.0-0.5); EOS % 3.5 % (0.0-3.0); HEMATOCRIT 34.3 % (42.0-52.0); LYMPH # 0.9 10^3/uL (1.5-5.0); LYMPH % 15.6 % (24.0-44.0); MEAN CORPUSCULAR HEMOGLOBIN 35.1 pg (27.0-33.0); MEAN CORPUSCULAR HGB CONC 32.1 g/dl (32.0-36.5); MEAN CORPUSCULAR VOLUME 109.6 fl (80.0-96.0); MONO # 0.9 10^3/uL (0.0-0.8); MONO % 14.8 % (2.0-8.0); NEUTROPHILS # 3.7 10^3/uL (1.5-8.5); NEUTROPHILS % 61.8 % (36.0-66.0); PLATELET COUNT, AUTOMATED 271 10^3/uL (150-450); RED BLOOD COUNT 3.13 10^6/uL (4.30-6.10)
== END ==
LOC: M PLALAB 07:31
PROVIDERS: ATTEND Internal Medicine Hematology
DX: D50.0 Iron deficiency anemia secondary to blood loss (chronic) (principal)

== ENCOUNTER → 2021-12-19 | Outpatient (CLI) | payer MEDICARE | LOC: M RAD 14:26 | PROVIDERS: ATTEND Physician Assistant | DX: I65.23 Occlusion and stenosis of bilateral carotid arteries (principal) ==

== ENCOUNTER → 2022-01-03 | Outpatient (CLI) | payer MEDICARE ==
[2022-01-03 10:55] LABS: HEMATOCRIT 37.8 % (42.0-52.0); HEMOGLOBIN 12.2 g/dl (13.5-17.5); MEAN CORPUSCULAR HEMOGLOBIN 34.5 pg (27.0-33.0); MEAN CORPUSCULAR HGB CONC 32.3 g/dl (32.0-36.5); MEAN CORPUSCULAR VOLUME 106.8 fl (80.0-96.0); PLATELET COUNT, AUTOMATED 274 10^3/uL (150-450); RED BLOOD COUNT 3.54 10^6/uL (4.30-6.10); WHITE BLOOD COUNT 8.6 10^3/uL (4.0-10.0)
[2022-01-03 11:18] LABS: HEMOGLOBIN A1c 5.7 %
[2022-01-03 11:45] LABS: MAU/CREAT RATIO 4.1 MCG/MG (0.0-30.0)
[2022-01-03 11:53] LABS: BILIRUBIN,TOTAL 0.6 MG/DL (0.2-1.0); CALCIUM LEVEL 8.8 MG/DL (8.8-10.2); CREATININE FOR GFR 1.5 MG/DL (0.70-1.30); GLOMERULAR FILTRATION RATE 48.2 (>42)
[2022-01-03 11:54] LABS: ALBUMIN 3.6 GM/DL (3.2-5.2); C REACTIVE PROTEIN QUANTITATIV 1.31 MG/DL (0.00-0.30); CHOLESTEROL RISK RATIO 2.947 (<5); FREE T4 1.01 NG/DL (0.76-1.46); THYROID STIMULATING HORMONE 0.909 uIU/ML (0.358-3.740)
[2022-01-03 12:17] LABS: TOTAL 25(OH) VITAMIN D 35.3 NG/ML (30.0-100.0)
== END ==
LOC: M PLALAB 07:21
PROVIDERS: ATTEND Internal Medicine Hematology
DX: I25.10 Atherosclerotic heart disease of native coronary artery without angina pectoris (principal); I12.9 Hypertensive chronic kidney disease with stage 1 through stage 4 chronic kidney disease, or unspecified chronic kidney disease; D75.89 Other specified diseases of blood and blood-forming organs; N18.31 Chronic kidney disease, stage 3a

== ENCOUNTER → 2022-03-09 | Outpatient (CLI) | payer MEDICARE ==
[2022-03-09 14:31] LABS: BASO # 0.1 10^3/uL (0.0-0.2); BASO % 0.8 % (0.0-1.0); EOS # 0.2 10^3/uL (0.0-0.5); EOS % 2.1 % (0.0-3.0); HEMATOCRIT 34.3 % (42.0-52.0); LYMPH # 0.9 10^3/uL (1.5-5.0); MEAN CORPUSCULAR HEMOGLOBIN 35.4 pg (27.0-33.0); MEAN CORPUSCULAR HGB CONC 32.1 g/dl (32.0-36.5); MEAN CORPUSCULAR VOLUME 110.3 fl (80.0-96.0); MONO # 0.9 10^3/uL (0.0-0.8); MONO % 10.4 % (2.0-8.0); NEUTROPHILS # 6.3 10^3/uL (1.5-8.5); NEUTROPHILS % 74.2 % (36.0-66.0); PLATELET COUNT, AUTOMATED 276 10^3/uL (150-450); RED BLOOD COUNT 3.11 10^6/uL (4.30-6.10); WHITE BLOOD COUNT 8.5 10^3/uL (4.0-10.0)
[2022-03-09 14:44] LABS: URIC ACID 5.6 MG/DL (3.7-9.2)
[2022-03-09 15:23] LABS: ALBUMIN 3.7 G/DL (3.2-5.2); CALCIUM LEVEL 9.1 MG/DL (8.3-10.6); CREATININE FOR GFR 1.3 MG/DL (0.70-1.30); GLOMERULAR FILTRATION RATE 56.7 (>42); PHOSPHORUS LEVEL 2.2 MG/DL (2.4-5.1)
== END ==
LOC: M PLALAB 10:28
PROVIDERS: ATTEND Internal Medicine Hematology
DX: I10 Essential (primary) hypertension (principal)

== ENCOUNTER → 2022-04-04 | Outpatient (CLI) | payer MEDICARE ==
[~2022-04-04] MED LIST changes: +ISOVUE-370 76% 100ML VIAL As Ordered ONE
== END ==
LOC: M RAD 14:55
PROVIDERS: ATTEND Internal Medicine Hematology
DX: R91.1 Solitary pulmonary nodule (principal); J84.10 Pulmonary fibrosis, unspecified; I70.0 Atherosclerosis of aorta; Z95.0 Presence of cardiac pacemaker; M47.9 Spondylosis, unspecified
CPT/HCPCS: 71260; Q9967

== ENCOUNTER 2022-05-20 08:52 | Emergency (ER) | payer MEDICARE ==
[~2022-05-20] VITALS: Ht 167.6 cm; Wt 97.2 kg
[~2022-05-20 08:52] MED LIST changes: -ISOVUE-370 76% 100ML VIAL As Ordered ONE
[2022-05-20] MEDS ORDERED: PERCOCET 5MG/325MG TAB PO ONE (10:55)
[2022-05-20 12:54] VITALS: BP 130/71
[2022-05-20] MEDS ORDERED: PERCOCET PO (13:36)
[2022-05-20] MEDS ORDERED: PERC5TAB12 PO (13:42)
== END 2022-05-20 13:51 | disposition home or self-care (01) ==
LOC: M ED 08:52
DX: M54.12 Radiculopathy, cervical region (principal); I51.9 Heart disease, unspecified; E78.5 Hyperlipidemia, unspecified; N18.9 Chronic kidney disease, unspecified; Z79.82 Long term (current) use of aspirin; Z79.899 Other long term (current) drug therapy; Z88.8 Allergy status to other drugs, medicaments and biological substances

== ENCOUNTER → 2022-07-21 | Outpatient (CLI) | payer MEDICARE ==
[~2022-07-21] MED LIST changes: +PERCOCET PO
[2022-07-21 11:13] LABS: HEMATOCRIT 37.3 % (42.0-52.0); HEMOGLOBIN 12.1 g/dl (13.5-17.5); MEAN CORPUSCULAR HEMOGLOBIN 35.4 pg (27.0-33.0); MEAN CORPUSCULAR HGB CONC 32.4 g/dl (32.0-36.5); MEAN CORPUSCULAR VOLUME 109.1 fl (80.0-96.0); PLATELET COUNT, AUTOMATED 249 10^3/uL (150-450); RED BLOOD COUNT 3.42 10^6/uL (4.30-6.10); WHITE BLOOD COUNT 7.4 10^3/uL (4.0-10.0)
[2022-07-21 11:34] LABS: HEMOGLOBIN A1c 5.8 % (4.0-6.0)
[2022-07-21 11:39] LABS: ALBUMIN 3.5 G/DL (3.2-5.2); BILIRUBIN,TOTAL 0.6 MG/DL (0.3-1.2); CALCIUM LEVEL 8.1 MG/DL (8.3-10.6); CHOLESTEROL RISK RATIO 3.94 (<5); CREATININE FOR GFR 1.43 MG/DL (0.70-1.30); GLOMERULAR FILTRATION RATE 50.8 (>42); HDL CHOLESTEROL 27.1 MG/DL (>40); LDL CHOLESTEROL 56.7 MG/DL (<100); NON-HDL-C 79.9 MG/DL; POTASSIUM SERUM 3.6 MMOL/L (3.5-5.1); TOTAL PROTEIN 6.3 G/DL (5.7-8.2)
[2022-07-21 11:40] LABS: CREATININE, URINE 139.4 MG/DL; MAU/CREAT RATIO 6.4 MCG/MG (0.0-30.0)
[2022-07-21 11:43] LABS: FREE T4 1.01 NG/DL (0.89-1.76)
[2022-07-21 11:44] LABS: THYROID STIMULATING HORMONE 1.254 uIU/ML (0.55-4.78)
[2022-07-21 11:45] LABS: C REACTIVE PROTEIN QUANTITATIV 6.8 MG/DL (<1.0)
[2022-07-21 11:48] LABS: TOTAL 25(OH) VITAMIN D 44.2 NG/ML (20.0-100.0)
== END ==
LOC: M PLALAB 07:29
PROVIDERS: ATTEND Internal Medicine Hematology
DX: I12.9 Hypertensive chronic kidney disease with stage 1 through stage 4 chronic kidney disease, or unspecified chronic kidney disease (principal); Z79.899 Other long term (current) drug therapy

== ENCOUNTER → 2022-09-19 | Outpatient (CLI) | payer MEDICARE | LOC: M PLAIMG 16:46 | PROVIDERS: ATTEND Internal Medicine Hematology | DX: R91.8 Other nonspecific abnormal finding of lung field (principal); J90 Pleural effusion, not elsewhere classified; Z95.0 Presence of cardiac pacemaker ==

== ENCOUNTER 2022-10-03 12:47 | Inpatient (IN) | payer MEDICARE ==
[~2022-10-03] VITALS: Ht 167.6 cm; Wt 90.6 kg
[2022-10-03 18:34] LABS: BASO # 0.1 10^3/uL (0.0-0.2); EOS # 0.2 10^3/uL (0.0-0.5); EOS % 1.9 % (0.0-3.0); HEMATOCRIT 40.9 % (42.0-52.0); HEMOGLOBIN 12.9 g/dl (13.5-17.5); LYMPH # 0.9 10^3/uL (1.5-5.0); LYMPH % 9.3 % (24.0-44.0); MEAN CORPUSCULAR HEMOGLOBIN 32.7 pg (27.0-33.0); MEAN CORPUSCULAR HGB CONC 31.5 g/dl (32.0-36.5); MEAN CORPUSCULAR VOLUME 103.5 fl (80.0-96.0); MONO # 0.8 10^3/uL (0.0-0.8); MONO % 8.4 % (2.0-8.0); NEUTROPHILS # 7.2 10^3/uL (1.5-8.5); NEUTROPHILS % 76.8 % (36.0-66.0); PLATELET COUNT, AUTOMATED 317 10^3/uL (150-450); RED BLOOD COUNT 3.95 10^6/uL (4.30-6.10); WHITE BLOOD COUNT 9.4 10^3/uL (4.0-10.0)
[2022-10-03 18:43] LABS: INR 0.91; PROTHROMBIN TIME 12.5 SECONDS (12.5-14.5)
[2022-10-03 18:44] LABS: PARTIAL THROMBOPLASTIN TIME 30.1 SECONDS (24.8-34.2)
[2022-10-03 18:54] LABS: BLOOD UREA NITROGEN 17 MG/DL (9-23); CALCIUM LEVEL 8.9 MG/DL (8.3-10.6); CARBON DIOXIDE LEVEL 25 MMOL/L (20-31); CHLORIDE LEVEL 101 MMOL/L (98-107); CREATININE FOR GFR 0.98 MG/DL (0.70-1.30); ERYTHROCYTE SEDIMENTATION RATE 88 mm/hr (0-20); GLOMERULAR FILTRATION RATE > 60.0 (>42); GLUCOSE, FASTING 101 MG/DL (74-106); POTASSIUM SERUM 3.8 MMOL/L (3.5-5.1); SODIUM LEVEL 139 MMOL/L (136-145)
[2022-10-03 19:36] LABS: RSV AMPLIFICATION NEGATIVE (NEGATIVE)
[2022-10-03] MEDS ORDERED: ceFAZolin SOD 2 GM in IV 1 EA IV ONE (19:40)
[2022-10-03] MEDS ORDERED: ACETAMINOPHEN TAB 650MG DOSE (2X325MG) PO PRN (21:15)
[2022-10-03] MEDS ORDERED: COLC0.6T47 PO (22:07)
[2022-10-03] MEDS ORDERED: ALLO300T2 PO (22:07)
[2022-10-03] MEDS ORDERED: ACET-897 PO (22:07)
[2022-10-03] MEDS ORDERED: D-40TAB2 PO (22:07)
[2022-10-03] MEDS ORDERED: FOLI1TAB11 PO (22:09)
[2022-10-03] MEDS ORDERED: METO50TA7 PO (22:12)
[2022-10-03] MEDS ORDERED: LEVA1.2519 INH (22:12)
[2022-10-03] MEDS ORDERED: MIRA3350 PO (22:13)
[2022-10-03] MEDS: DOXYCYCLINE HYCLATE 100MG TABLET PO SCH (22:13)
[2022-10-03] MEDS ORDERED: TRAM50TA2 PO (22:16)
[2022-10-03] MEDS ORDERED: POTA-151 PO (22:16)
[2022-10-03] MEDS ORDERED: POTA-165 PO (22:16)
[2022-10-03] MEDS ORDERED: FURO40TA2 PO (22:18)
[2022-10-03] MEDS ORDERED: HOME MED LIST COMPLETE! XX SCH ×2 (22:20→22:30)
[2022-10-03 22:45] VITALS: BP 153/84; TEMP 97.5; O2SAT 94
[2022-10-03] MEDS ORDERED: VANCOMYCIN HCL 1,000 MG, VIAL MATE ADAPTER 1 EACH in D5W 250 ML IV SCH (23:00)
[2022-10-04] MEDS ORDERED: VANCOMYCIN HCL 1,000 MG, VIAL MATE ADAPTER 1 EACH in D5W 250 ML IV ONE ×3
[2022-10-04] MEDS ORDERED: LEVALBUTEROL 1.25MG/3ML NEB SOLN INH PRN (00:30)
[2022-10-04] MEDS ORDERED: LIDOCAINE 5% (LIDODERM) PATCH TD PRN (00:30)
[2022-10-04] MEDS ORDERED: MIRALAX *UNIT DOSE* 17GM PACKET PO PRN (00:30)
[2022-10-04] MEDS: ASPIRIN 81MG ENTERIC TABLET PO SCH ×2 (01:22→20:30)
[2022-10-04] MEDS: ATORVASTATIN 20 MG TAB PO SCH ×2 (01:23→20:30)
[2022-10-04] MEDS: METOPROLOL TART 50 MG TAB PO SCH ×3 (01:25→20:31)
[2022-10-04 06:00] VITALS: BP 100/51; TEMP 97.9; O2SAT 93
[2022-10-04 06:31] LABS: HEMATOCRIT 33.7 % (42.0-52.0); MEAN CORPUSCULAR HEMOGLOBIN 33.4 pg (27.0-33.0); MEAN CORPUSCULAR HGB CONC 32.3 g/dl (32.0-36.5); MEAN CORPUSCULAR VOLUME 103.4 fl (80.0-96.0); PLATELET COUNT, AUTOMATED 270 10^3/uL (150-450); RED BLOOD COUNT 3.26 10^6/uL (4.30-6.10); WHITE BLOOD COUNT 8.5 10^3/uL (4.0-10.0)
[2022-10-04 06:34] LABS: HEMOGLOBIN 10.9 g/dl (13.5-17.5)
[2022-10-04 06:38] LABS: C REACTIVE PROTEIN QUANTITATIV 2.8 MG/DL (<1.0)
[2022-10-04 06:39] LABS: ALBUMIN 3.2 G/DL (3.2-5.2); ALKALINE PHOSPHATASE 130 U/L (46-116); ALT/SGPT 11 U/L (7.0-40); AST/SGOT 11 U/L (<34); BILIRUBIN,TOTAL 0.7 MG/DL (0.3-1.2); BLOOD UREA NITROGEN 15 MG/DL (9-23); CALCIUM LEVEL 8.2 MG/DL (8.3-10.6); CARBON DIOXIDE LEVEL 26 MMOL/L (20-31); CHLORIDE LEVEL 106 MMOL/L (98-107); GLOMERULAR FILTRATION RATE > 60.0 (>42); GLUCOSE, FASTING 96 MG/DL (74-106); POTASSIUM SERUM 3.5 MMOL/L (3.5-5.1); SODIUM LEVEL 140 MMOL/L (136-145); TOTAL PROTEIN 6.2 G/DL (5.7-8.2)
[2022-10-04] MEDS: DOXYCYCLINE HYCLATE 100MG TABLET PO SCH ×2 (08:43→20:30)
[2022-10-04] MEDS: FUROSEMIDE 40 MG TAB PO SCH (08:43)
[2022-10-04] MEDS: CLOPIDOGREL 75 MG TAB PO SCH (08:43)
[2022-10-04] MEDS: FERROUS SULFATE 325MG TAB PO SCH (08:43)
[2022-10-04] MEDS: FOLIC ACID 1MG TAB PO SCH (08:43)
[2022-10-04] MEDS: HEPARIN SOD (PORCINE) 5000UNITS/ML 1ML VIAL/SYRINGE SC SCH ×2 (08:44→20:31)
[2022-10-04] MEDS: allopurinoL 300 MG TAB PO SCH (08:44)
[2022-10-04] MEDS ORDERED: POTASSIUM CHLORIDE 10MEQ SR TABLET PO ONE (10:40)
[2022-10-04 10:57] LABS: MAGNESIUM LEVEL 1.5 MG/DL (1.8-2.4)
[2022-10-04] MEDS: VITAMIN D (CHOLECALCIFEROL) 400 INTERNATIONAL UNITS TAB PO SCH (13:41)
[2022-10-04 14:00] VITALS: BP 148/67; TEMP 98.1; O2SAT 93
[2022-10-04] MEDS: MAG SULF 1GM/100ML (MAG RUN) 1 GM in IV 1 EA IV SCH ×4 (18:41→23:38)
[2022-10-04] MEDS: ADVAIR HFA 230/21MCG INHALER INH SCH (19:59)
[2022-10-04 20:25] VITALS: BP 145/69; TEMP 98.2; O2SAT 93
[2022-10-04] MEDS ORDERED: SALMETEROL DISKUS 50MCG INHALER (SEREVENT) INH SCH (21:00)
[2022-10-05 05:44] VITALS: BP 109/70; TEMP 98.1; O2SAT 93
[2022-10-05 05:49] LABS: BASO # 0.1 10^3/uL (0.0-0.2); BASO % 1.1 % (0.0-1.0); EOS # 0.2 10^3/uL (0.0-0.5); EOS % 2.6 % (0.0-3.0); HEMOGLOBIN 10.9 g/dl (13.5-17.5); LYMPH # 0.8 10^3/uL (1.5-5.0); LYMPH % 10.5 % (24.0-44.0); MEAN CORPUSCULAR HEMOGLOBIN 33.4 pg (27.0-33.0); MEAN CORPUSCULAR HGB CONC 32.1 g/dl (32.0-36.5); MEAN CORPUSCULAR VOLUME 104.3 fl (80.0-96.0); MONO # 0.8 10^3/uL (0.0-0.8); MONO % 11.2 % (2.0-8.0); NEUTROPHILS # 5.3 10^3/uL (1.5-8.5); NEUTROPHILS % 71.4 % (36.0-66.0); PLATELET COUNT, AUTOMATED 279 10^3/uL (150-450); RED BLOOD COUNT 3.26 10^6/uL (4.30-6.10); WHITE BLOOD COUNT 7.4 10^3/uL (4.0-10.0)
[2022-10-05 06:17] LABS: BLOOD UREA NITROGEN 14 MG/DL (9-23); CALCIUM LEVEL 8.4 MG/DL (8.3-10.6); CARBON DIOXIDE LEVEL 28 MMOL/L (20-31); CHLORIDE LEVEL 105 MMOL/L (98-107); CREATININE FOR GFR 1.07 MG/DL (0.70-1.30); GLOMERULAR FILTRATION RATE > 60.0 (>42); GLUCOSE, FASTING 101 MG/DL (74-106); MAGNESIUM LEVEL 2.4 MG/DL (1.8-2.4); POTASSIUM SERUM 3.9 MMOL/L (3.5-5.1); SODIUM LEVEL 141 MMOL/L (136-145)
[2022-10-05] MEDS: ADVAIR HFA 230/21MCG INHALER INH SCH (07:33)
[2022-10-05] MEDS ORDERED: TIOTROPIUM INHALER/CAPSULE (SPIRIVA) INH SCH (08:00)
[2022-10-05] MEDS: HEPARIN SOD (PORCINE) 5000UNITS/ML 1ML VIAL/SYRINGE SC SCH (08:14)
[2022-10-05 08:15] VITALS: BP 139/83
[2022-10-05] MEDS: FERROUS SULFATE 325MG TAB PO SCH (08:15)
[2022-10-05] MEDS: DOXYCYCLINE HYCLATE 100MG TABLET PO SCH (08:15)
[2022-10-05] MEDS: METOPROLOL TART 50 MG TAB PO SCH (08:15)
[2022-10-05] MEDS: FOLIC ACID 1MG TAB PO SCH (08:15)
[2022-10-05] MEDS: VITAMIN D (CHOLECALCIFEROL) 400 INTERNATIONAL UNITS TAB PO SCH (08:15)
[2022-10-05] MEDS: allopurinoL 300 MG TAB PO SCH (08:15)
[2022-10-05] MEDS: FUROSEMIDE 40 MG TAB PO SCH (08:16)
[2022-10-05] MEDS: CLOPIDOGREL 75 MG TAB PO SCH (08:16)
[2022-10-05 09:22] VITALS: BP 139/83
[2022-10-05] MEDS ORDERED: DOXY100T PO (11:31)
== END 2022-10-05 14:15 | disposition home health service (06) | DRG 603 ==
LOC: M ED 12:47 → M ED INP 21:06 → M MS5PR 22:45
PROVIDERS: ADMIT Family Medicine; ATTEND Internal Medicine
DX: L03.115 Cellulitis of right lower limb (principal); I82.401 Acute embolism and thrombosis of unspecified deep veins of right lower extremity; I50.9 Heart failure, unspecified; I27.81 Cor pulmonale (chronic); J44.9 Chronic obstructive pulmonary disease, unspecified; N18.9 Chronic kidney disease, unspecified; I25.2 Old myocardial infarction; I25.10 Atherosclerotic heart disease of native coronary artery without angina pectoris; M19.90 Unspecified osteoarthritis, unspecified site; Z79.82 Long term (current) use of aspirin; E55.9 Vitamin D deficiency, unspecified; G47.33 Obstructive sleep apnea (adult) (pediatric); Z95.1 Presence of aortocoronary bypass graft; M10.9 Gout, unspecified; D53.9 Nutritional anemia, unspecified; Z88.8 Allergy status to other drugs, medicaments and biological substances; Z79.899 Other long term (current) drug therapy; Z98.41 Cataract extraction status, right eye; Z98.42 Cataract extraction status, left eye; Z95.2 Presence of prosthetic heart valve

== ENCOUNTER → 2023-01-03 | Outpatient (CLI) | payer MEDICARE ==
[~2023-01-03] MED LIST changes: +ACET-897 PO; +ALLO300T2 PO; +COLC0.6T47 PO; +D-40TAB2 PO; +DOXY100T PO; +LEVA1.2519 INH; +METO50TA7 PO; +MIRA3350 PO; +POTA-151 PO; +POTA-165 PO; +TRAM50TA2 PO
[2023-01-03 11:33] LABS: BLOOD UREA NITROGEN 25 MG/DL (9-23); CALCIUM LEVEL 8.9 MG/DL (8.3-10.6); CARBON DIOXIDE LEVEL 32 MMOL/L (20-31); CHLORIDE LEVEL 106 MMOL/L (98-107); CREATININE FOR GFR 1.14 MG/DL (0.70-1.30); GLOMERULAR FILTRATION RATE > 60.0 (>42); GLUCOSE, FASTING 117 MG/DL (74-106); POTASSIUM SERUM 4.2 MMOL/L (3.5-5.1); SODIUM LEVEL 144 MMOL/L (136-145)
== END ==
LOC: M PLALAB 07:12
PROVIDERS: ATTEND Internal Medicine
DX: I48.0 Paroxysmal atrial fibrillation (principal)

== ENCOUNTER → 2023-02-12 | Outpatient (CLI) | payer MEDICARE ==
[2023-02-12 10:47] LABS: BASO % 0.4 % (0.0-1.0); EOS # 0.1 10^3/uL (0.0-0.5); EOS % 1.8 % (0.0-3.0); HEMATOCRIT 31.1 % (42.0-52.0); LYMPH # 0.7 10^3/uL (1.5-5.0); LYMPH % 10.1 % (24.0-44.0); MEAN CORPUSCULAR HEMOGLOBIN 36.6 pg (27.0-33.0); MEAN CORPUSCULAR HGB CONC 32.2 g/dl (32.0-36.5); MEAN CORPUSCULAR VOLUME 113.9 fl (80.0-96.0); MONO # 0.7 10^3/uL (0.0-0.8); MONO % 9.8 % (2.0-8.0); NEUTROPHILS # 5.3 10^3/uL (1.5-8.5); NEUTROPHILS % 75.9 % (36.0-66.0); PLATELET COUNT, AUTOMATED 284 10^3/uL (150-450); RED BLOOD COUNT 2.73 10^6/uL (4.30-6.10)
== END ==
LOC: M PLALAB 07:04
PROVIDERS: ATTEND Internal Medicine Hematology
DX: I27.81 Cor pulmonale (chronic) (principal); I25.10 Atherosclerotic heart disease of native coronary artery without angina pectoris; I10 Essential (primary) hypertension; J44.9 Chronic obstructive pulmonary disease, unspecified; M10.079 Idiopathic gout, unspecified ankle and foot; I70.90 Unspecified atherosclerosis; Z86.39 Personal history of other endocrine, nutritional and metabolic disease; R06.02 Shortness of breath

== ENCOUNTER → 2023-02-13 | Outpatient (CLI) | payer MEDICARE ==
[2023-02-13 14:39] LABS: HEMOGLOBIN A1c 4.9 % (4.0-6.0)
[2023-02-13 14:52] LABS: BASO # 0.1 10^3/uL (0.0-0.2); BASO % 0.7 % (0.0-1.0); EOS # 0.2 10^3/uL (0.0-0.5); EOS % 2.2 % (0.0-3.0); HEMATOCRIT 31.6 % (42.0-52.0); HEMOGLOBIN 10.5 g/dl (13.5-17.5); LYMPH # 0.6 10^3/uL (1.5-5.0); LYMPH % 8.8 % (24.0-44.0); MEAN CORPUSCULAR HEMOGLOBIN 36.6 pg (27.0-33.0); MEAN CORPUSCULAR HGB CONC 33.2 g/dl (32.0-36.5); MEAN CORPUSCULAR VOLUME 110.1 fl (80.0-96.0); MONO # 0.7 10^3/uL (0.0-0.8); MONO % 10.4 % (2.0-8.0); NEUTROPHILS # 5.2 10^3/uL (1.5-8.5); NEUTROPHILS % 75.7 % (36.0-66.0); PLATELET COUNT, AUTOMATED 309 10^3/uL (150-450); RED BLOOD COUNT 2.87 10^6/uL (4.30-6.10); WHITE BLOOD COUNT 6.9 10^3/uL (4.0-10.0)
[2023-02-13 14:56] LABS: IRON (FE) 282 UG/DL (65-175)
[2023-02-13 14:59] LABS: ALBUMIN 3.8 G/DL (3.2-5.2); ALKALINE PHOSPHATASE 147 U/L (46-116); ALT/SGPT 18 U/L (7.0-40); AST/SGOT 13 U/L (<34); BILIRUBIN,TOTAL 0.9 MG/DL (0.3-1.2); BLOOD UREA NITROGEN 23 MG/DL (9-23); CALCIUM LEVEL 9.1 MG/DL (8.3-10.6); CARBON DIOXIDE LEVEL 32 MMOL/L (20-31); CHLORIDE LEVEL 103 MMOL/L (98-107); CHOLESTEROL LEVEL 116 MG/DL (<200); CHOLESTEROL RISK RATIO 3.01 (<5); CREATININE FOR GFR 1.17 MG/DL (0.70-1.30); FREE T4 1.01 NG/DL (0.89-1.76); GLOMERULAR FILTRATION RATE > 60.0 (>35); GLUCOSE, FASTING 90 MG/DL (74-106); HDL CHOLESTEROL 38.5 MG/DL (>40); LDL CHOLESTEROL 58.3 MG/DL (<100); NON-HDL-C 77.5 MG/DL; POTASSIUM SERUM 4.5 MMOL/L (3.5-5.1); SODIUM LEVEL 140 MMOL/L (136-145); THYROID STIMULATING HORMONE 0.757 uIU/ML (0.55-4.78); TOTAL 25(OH) VITAMIN D 43.2 NG/ML (20.0-100.0); TOTAL PROTEIN 6.6 G/DL (5.7-8.2); TRIGLYCERIDES LEVEL 96 MG/DL (<150); VITAMIN B12 LEVEL 663 PG/ML (211-911)
== END ==
LOC: M PLALAB 11:44
PROVIDERS: ATTEND Internal Medicine Hematology
DX: I25.10 Atherosclerotic heart disease of native coronary artery without angina pectoris (principal); I27.81 Cor pulmonale (chronic); M10.079 Idiopathic gout, unspecified ankle and foot; I70.90 Unspecified atherosclerosis; I10 Essential (primary) hypertension; J44.9 Chronic obstructive pulmonary disease, unspecified; K59.03 Drug induced constipation; D75.89 Other specified diseases of blood and blood-forming organs; Z87.891 Personal history of nicotine dependence; R06.02 Shortness of breath; Z79.899 Other long term (current) drug therapy; Z86.39 Personal history of other endocrine, nutritional and metabolic disease

== ENCOUNTER → 2023-04-02 | Outpatient (CLI) | payer MEDICARE | LOC: M RAD 13:21 | PROVIDERS: ATTEND Physician Assistant | DX: I65.23 Occlusion and stenosis of bilateral carotid arteries (principal) ==

== ENCOUNTER 2023-04-25 11:03 | Emergency (ER) | payer MEDICARE ==
[~2023-04-25] VITALS: Ht 167.6 cm; Wt 92.3 kg
[~2023-04-25 11:03] MED LIST changes: -D-101000 PO; -FOLI800C PO; -LEVA0.6322 INH; -LEVO1TAB40 PO; -MUCI600T31 PO
[2023-04-25 12:20] LABS: BASO % 0.1 % (0.0-1.0); EOS % 0.1 % (0.0-3.0); HEMATOCRIT 35.5 % (42.0-52.0); HEMOGLOBIN 11.7 g/dl (13.5-17.5); LYMPH # 0.3 10^3/uL (1.5-5.0); LYMPH % 1.9 % (24.0-44.0); MEAN CORPUSCULAR HEMOGLOBIN 37.4 pg (27.0-33.0); MEAN CORPUSCULAR VOLUME 113.4 fl (80.0-96.0); MONO # 0.9 10^3/uL (0.0-0.8); MONO % 5.6 % (2.0-8.0); NEUTROPHILS # 14.6 10^3/uL (1.5-8.5); NEUTROPHILS % 91.6 % (36.0-66.0); PLATELET COUNT, AUTOMATED 229 10^3/uL (150-450); RED BLOOD COUNT 3.13 10^6/uL (4.30-6.10); WHITE BLOOD COUNT 15.9 10^3/uL (4.0-10.0)
[2023-04-25 12:34] LABS: INR 1.19; PROTHROMBIN TIME 14.8 SECONDS (12.5-14.5)
[2023-04-25 12:48] LABS: CK-MB VALUE MASS < 1.0 NG/ML (<3.6)
[2023-04-25 12:50] LABS: ALBUMIN 3.6 G/DL (3.2-5.2); ALKALINE PHOSPHATASE 131 U/L (46-116); ALT/SGPT 26 U/L (7.0-40); AST/SGOT 22 U/L (<34); BILIRUBIN,DIRECT 0.5 MG/DL (<0.4); BLOOD UREA NITROGEN 22 MG/DL (9-23); CALCIUM LEVEL 8.7 MG/DL (8.3-10.6); CARBON DIOXIDE LEVEL 29 MMOL/L (20-31); CHLORIDE LEVEL 108 MMOL/L (98-107); CPK CREATINE PHOSPHOKINASE 48 U/L (46-171); CREATININE FOR GFR 1.23 MG/DL (0.70-1.30); GLOMERULAR FILTRATION RATE > 60.0 (>35); GLUCOSE, FASTING 135 MG/DL (74-106); MB/CK RELATIVE INDEX 2.08 (< OR =4); POTASSIUM SERUM 3.7 MMOL/L (3.5-5.1); SODIUM LEVEL 142 MMOL/L (136-145); TOTAL PROTEIN 6.7 G/DL (5.7-8.2)
[2023-04-25] MEDS: methylPREDNISolone 40MG 1ML VIAL IV ONE (13:53)
[2023-04-25] MEDS: cefTRIAXone SOD 1 GM in D5W MINI-BAG PLUS 50 ML IV ONE (13:53)
[2023-04-25] MEDS ORDERED: D-101000 PO (14:24)
[2023-04-25] MEDS ORDERED: LEVA0.6322 INH (14:24)
[2023-04-25] MEDS ORDERED: HOME MED LIST COMPLETE! XX SCH (14:30)
[2023-04-25] MEDS: DOXYCYCLINE HYCLATE 100 MG in D5W MINI-BAG PLUS 100 ML IV ONE (14:36)
[2023-04-25] MEDS ORDERED: FOLI800C PO (14:38)
[2023-04-25 14:50] LABS: C REACTIVE PROTEIN QUANTITATIV 20.9 MG/DL (<1.0)
[2023-04-25 14:57] LABS: PROCALCITONIN 0.2 ng/ml
[2023-04-25] MEDS: IPRATROPIUM 0.5MG/ALBUTEROL 2.5MG INH SOL UD 3ML (DUONEB) NEB ONE (15:09)
[2023-04-25 16:03] VITALS: TEMP 98.1
[2023-04-25] MEDS ORDERED: LEVO1TAB40 PO (16:32)
[2023-04-25] MEDS ORDERED: PRED20TA PO (16:32)
[2023-04-25] MEDS ORDERED: MUCI600T31 PO (16:32)
[2023-04-25 16:45] VITALS: BP 131/66
[2023-04-25 16:48] VITALS: O2SAT 92
== END 2023-04-25 17:18 | disposition home or self-care (01) ==
LOC: M ED 11:03
DX: J18.1 Lobar pneumonia, unspecified organism (principal); I44.0 Atrioventricular block, first degree; I10 Essential (primary) hypertension; J44.9 Chronic obstructive pulmonary disease, unspecified; I50.22 Chronic systolic (congestive) heart failure; Z86.79 Personal history of other diseases of the circulatory system; Z87.891 Personal history of nicotine dependence; Z88.8 Allergy status to other drugs, medicaments and biological substances; Z79.82 Long term (current) use of aspirin; Z79.02 Long term (current) use of antithrombotics/antiplatelets; Z79.52 Long term (current) use of systemic steroids; Z79.891 Long term (current) use of opiate analgesic; Z79.899 Other long term (current) drug therapy
CPT/HCPCS: 71045; 80048; 80076; 82550; 82553; 83605; 83880; 84145; 84484; 85025; 85610; 86140; 87040; 87070; 87077; 87186; 87205; 87486; 87581; 87633; 87798; 93005; 93041; 94640; 94760; 96365; 96375; 99285; J0696; J2920

== ENCOUNTER → 2023-04-25 | Outpatient (CLI) | payer MEDICARE ==
[~2023-04-25] MED LIST changes: +D-101000 PO; +FOLI800C PO; +LEVA0.6322 INH; +LEVO1TAB40 PO; +MUCI600T31 PO
== END ==
LOC: M WUC 10:13
PROVIDERS: ATTEND Student in an Organized Health Care Education/Training Program
DX: R06.02 Shortness of breath (principal)

== ENCOUNTER → 2023-05-11 | Outpatient (CLI) | payer MEDICARE ==
[~2023-05-11] MED LIST changes: +D-101000 PO; +FOLI800C PO; +LEVA0.6322 INH; +LEVO1TAB40 PO; +MUCI600T31 PO
[2023-05-11 11:59] LABS: ALBUMIN 3.2 G/DL (3.2-5.2); ALKALINE PHOSPHATASE 119 U/L (46-116); ALT/SGPT 20 U/L (7.0-40); AST/SGOT 16 U/L (<34); BILIRUBIN,TOTAL 0.6 MG/DL (0.3-1.2); BLOOD UREA NITROGEN 21 MG/DL (9-23); CALCIUM LEVEL 8.2 MG/DL (8.3-10.6); CARBON DIOXIDE LEVEL 31 MMOL/L (20-31); CHLORIDE LEVEL 105 MMOL/L (98-107); CHOLESTEROL LEVEL 127 MG/DL (<200); CHOLESTEROL RISK RATIO 3.35 (<5); CREATININE FOR GFR 1.16 MG/DL (0.70-1.30); GLOMERULAR FILTRATION RATE > 60.0 (>35); GLUCOSE, FASTING 106 MG/DL (74-106); HDL CHOLESTEROL 37.9 MG/DL (>40); HEMOGLOBIN 11.5 g/dl (13.5-17.5); LDL CHOLESTEROL 73.5 MG/DL (<100); MALB URINE SIEMENS < 3.0 MG/L; MAU/CREAT RATIO 1.6 MCG/MG (0.0-30.0); MEAN CORPUSCULAR HEMOGLOBIN 35.5 pg (27.0-33.0); MEAN CORPUSCULAR HGB CONC 31.9 g/dl (32.0-36.5); MEAN CORPUSCULAR VOLUME 111.1 fl (80.0-96.0); NON-HDL-C 89.1 MG/DL; PLATELET COUNT, AUTOMATED 254 10^3/uL (150-450); POTASSIUM SERUM 3.7 MMOL/L (3.5-5.1); RED BLOOD COUNT 3.24 10^6/uL (4.30-6.10); SODIUM LEVEL 143 MMOL/L (136-145); TOTAL PROTEIN 5.7 G/DL (5.7-8.2); TRIGLYCERIDES LEVEL 78 MG/DL (<150); WHITE BLOOD COUNT 6.9 10^3/uL (4.0-10.0)
[2023-05-11 12:03] LABS: FREE T4 1.04 NG/DL (0.89-1.76); THYROID STIMULATING HORMONE 2.748 uIU/ML (0.55-4.78)
[2023-05-11 12:04] LABS: TOTAL 25(OH) VITAMIN D 46.5 NG/ML (20.0-100.0); VITAMIN B12 LEVEL 736 PG/ML (211-911)
[2023-05-11 12:25] LABS: HEMOGLOBIN A1c 5.7 % (4.0-6.0)
== END ==
LOC: M PLALAB 06:53
PROVIDERS: ATTEND Internal Medicine Hematology
DX: I25.10 Atherosclerotic heart disease of native coronary artery without angina pectoris (principal); Z79.899 Other long term (current) drug therapy

== ENCOUNTER → 2023-05-18 | Outpatient (CLI) | payer MEDICARE ==
[2023-05-18 11:35] LABS: PERCENT SATURATION 16.1 % (19.7-50.0)
== END ==
LOC: M PLALAB 07:01
PROVIDERS: ATTEND Internal Medicine Hematology
DX: D50.9 Iron deficiency anemia, unspecified (principal)

== ENCOUNTER 2023-07-12 08:38 | Outpatient (CLI) | payer MEDICARE ==
[~2023-07-12] VITALS: Ht 165.1 cm; Wt 95.3 kg
[~2023-07-12 08:38] MED LIST changes: +ALBUTEROL SULFATE 2.5MG/0.5ML INH NEB SOLN INH PRN; +EPINEPHrine INJ 1 MG/ML 1ML AMP IM PRN; +diphenhydrAMINE 50MG/ML VIAL IV PRN; +methylPREDNISolone 125MG 2ML VIAL IV PRN
[2023-07-12] MEDS: IRON SUCROSE 200 MG in NS 100 ML OVER 1 HR IV ONE (08:59)
[2023-07-12 09:00] VITALS: BP_SYST 143; O2SAT 97
[2023-07-12 10:00] VITALS: BP 135/61; O2SAT 98
[2023-07-12] MEDS ORDERED: NS 1,000 ML IV SCH (10:00)
== END 2023-07-12 10:00 | disposition home or self-care (01) ==
LOC: M INFU 08:38
PROVIDERS: ATTEND Internal Medicine Hematology
DX: D50.9 Iron deficiency anemia, unspecified (principal); Z88.9 Allergy status to unspecified drugs, medicaments and biological substances
CPT/HCPCS: 96365; J1756

== ENCOUNTER 2023-07-19 11:26 | Outpatient (CLI) | payer MEDICARE ==
[~2023-07-19] VITALS: Ht 165.1 cm; Wt 95.3 kg
[~2023-07-19 11:26] MED LIST changes: +NS 1,000 ML IV SCH
[2023-07-19 11:30] VITALS: BP 126/56; O2SAT 99
[2023-07-19] MEDS: IRON SUCROSE 200 MG in NS 100 ML IV ONE (12:10)
== END 2023-07-19 13:15 ==
LOC: M INFU 11:26
PROVIDERS: ATTEND Internal Medicine Hematology
DX: D50.9 Iron deficiency anemia, unspecified (principal); Z88.9 Allergy status to unspecified drugs, medicaments and biological substances
CPT/HCPCS: 96365; J1756

== ENCOUNTER 2023-08-02 07:48 | Outpatient (CLI) | payer MEDICARE ==
[~2023-08-02] VITALS: Ht 167.6 cm; Wt 94.0 kg
[2023-08-02 08:08] VITALS: BP 121/56; O2SAT 98
[2023-08-02] MEDS: IRON SUCROSE 200 MG in NS 100 ML IV ONE (08:12)
[2023-08-02 09:20] VITALS: BP 145/65; O2SAT 97
[2023-08-02] MEDS ORDERED: TREL1AER (17:31)
[2023-08-02] MEDS ORDERED: SPIR-10 (17:31)
[2023-08-02] MEDS ORDERED: PRED20TA PO (19:49)
== END 2023-08-02 09:20 | disposition home or self-care (01) ==
LOC: M INFU 07:48
PROVIDERS: ATTEND Internal Medicine Hematology
DX: D50.9 Iron deficiency anemia, unspecified (principal); Z88.8 Allergy status to other drugs, medicaments and biological substances
CPT/HCPCS: 96365; J1756

== ENCOUNTER 2023-08-02 14:33 | Emergency (ER) | payer MEDICARE ==
[~2023-08-02] VITALS: Ht 167.6 cm; Wt 95.2 kg
[~2023-08-02 14:33] MED LIST changes: -ALBUTEROL SULFATE 2.5MG/0.5ML INH NEB SOLN INH PRN; -EPINEPHrine INJ 1 MG/ML 1ML AMP IM PRN; -NS 1,000 ML IV SCH; -diphenhydrAMINE 50MG/ML VIAL IV PRN; -methylPREDNISolone 125MG 2ML VIAL IV PRN
[2023-08-02 16:34] LABS: BASO # 0.1 10^3/uL (0.0-0.2); BASO % 0.6 % (0.0-1.0); EOS # 0.1 10^3/uL (0.0-0.5); EOS % 0.9 % (0.0-3.0); HEMATOCRIT 29.9 % (42.0-52.0); LYMPH # 0.7 10^3/uL (1.5-5.0); LYMPH % 8.4 % (24.0-44.0); MEAN CORPUSCULAR HEMOGLOBIN 38.5 pg (27.0-33.0); MEAN CORPUSCULAR HGB CONC 33.4 g/dl (32.0-36.5); MONO # 0.8 10^3/uL (0.0-0.8); MONO % 10.2 % (2.0-8.0); NEUTROPHILS # 6.2 10^3/uL (1.5-8.5); NEUTROPHILS % 76.8 % (36.0-66.0); PLATELET COUNT, AUTOMATED 286 10^3/uL (150-450)
[2023-08-02 16:48] LABS: ANISOCYTOSIS 1+; PLATELET ESTIMATE NORMAL (NORMAL)
[2023-08-02 16:58] LABS: ALBUMIN 3.8 G/DL (3.2-5.2); ALKALINE PHOSPHATASE 164 U/L (46-116); ALT/SGPT 16 U/L (7.0-40); AST/SGOT 16 U/L (<34); BILIRUBIN,DIRECT 0.3 MG/DL (<0.4); BILIRUBIN,TOTAL 0.7 MG/DL (0.3-1.2); BLOOD UREA NITROGEN 21 MG/DL (9-23); CALCIUM LEVEL 9.5 MG/DL (8.3-10.6); CARBON DIOXIDE LEVEL 30 MMOL/L (20-31); CHLORIDE LEVEL 107 MMOL/L (98-107); CREATININE FOR GFR 1.19 MG/DL (0.70-1.30); GLOMERULAR FILTRATION RATE > 60.0 (>35); GLUCOSE, FASTING 95 MG/DL (74-106); POTASSIUM SERUM 4.1 MMOL/L (3.5-5.1); SODIUM LEVEL 144 MMOL/L (136-145); TOTAL PROTEIN 6.4 G/DL (5.7-8.2)
[2023-08-02] MEDS ORDERED: TREL1AER (17:31)
[2023-08-02] MEDS ORDERED: SPIR-10 (17:31)
[2023-08-02] MEDS: methylPREDNISolone 125MG 2ML VIAL IV ONE (18:32)
[2023-08-02 18:33] LABS: CK-MB VALUE MASS 2.2 NG/ML (<3.6)
[2023-08-02 18:36] LABS: CPK CREATINE PHOSPHOKINASE 66 U/L (46-171); MB/CK RELATIVE INDEX 3.33 (< OR =4)
[2023-08-02] MEDS: IPRATROPIUM 0.5MG/ALBUTEROL 2.5MG INH SOL UD 3ML (DUONEB) NEB ONE (18:54)
[2023-08-02] MEDS ORDERED: PRED20TA PO (19:49)
[2023-08-02 19:54] VITALS: BP 116/51; TEMP 97.5; O2SAT 94
== END 2023-08-02 19:54 | disposition home or self-care (01) ==
LOC: M ED 14:33
DX: J44.1 Chronic obstructive pulmonary disease with (acute) exacerbation (principal); I25.2 Old myocardial infarction; I12.9 Hypertensive chronic kidney disease with stage 1 through stage 4 chronic kidney disease, or unspecified chronic kidney disease; R91.1 Solitary pulmonary nodule; G47.33 Obstructive sleep apnea (adult) (pediatric); Z87.01 Personal history of pneumonia (recurrent); Z98.61 Coronary angioplasty status; Z95.1 Presence of aortocoronary bypass graft; Z87.891 Personal history of nicotine dependence; Z79.82 Long term (current) use of aspirin; Z79.899 Other long term (current) drug therapy; Z88.8 Allergy status to other drugs, medicaments and biological substances
CPT/HCPCS: 71046; 80048; 80076; 82550; 82553; 83880; 84484; 85025; 93005; 94640; 96374; 99284; J2919

== ENCOUNTER → 2023-08-09 | Outpatient (CLI) | payer MEDICARE ==
[~2023-08-09] MED LIST changes: +SPIR-10; +TREL1AER
== END ==
LOC: M PLALAB 07:09
PROVIDERS: ATTEND Internal Medicine Hematology
DX: D50.9 Iron deficiency anemia, unspecified (principal)

== ENCOUNTER 2023-08-26 09:43 | Emergency (ER) | payer MEDICARE ==
[~2023-08-26] VITALS: Ht 167.6 cm; Wt 94.9 kg
[2023-08-26] MEDS ORDERED: ISOVUE-370 76% 100ML VIAL As Ordered ONE (10:00)
[2023-08-26 10:24] LABS: BASO % 0.4 % (0.0-1.0); EOS # 0.1 10^3/uL (0.0-0.5); EOS % 1.5 % (0.0-3.0); LYMPH # 0.4 10^3/uL (1.5-5.0); LYMPH % 5.4 % (24.0-44.0); MEAN CORPUSCULAR HEMOGLOBIN 36.4 pg (27.0-33.0); MEAN CORPUSCULAR HGB CONC 32.4 g/dl (32.0-36.5); MEAN CORPUSCULAR VOLUME 112.6 fl (80.0-96.0); MONO # 0.5 10^3/uL (0.0-0.8); MONO % 7.1 % (2.0-8.0); NEUTROPHILS # 6.4 10^3/uL (1.5-8.5); NEUTROPHILS % 84.1 % (36.0-66.0); PLATELET COUNT, AUTOMATED 222 10^3/uL (150-450); RED BLOOD COUNT 3.02 10^6/uL (4.30-6.10); WHITE BLOOD COUNT 7.6 10^3/uL (4.0-10.0)
[2023-08-26 10:37] LABS: INR 1.05; PARTIAL THROMBOPLASTIN TIME 30.5 SECONDS (24.8-34.2); PROTHROMBIN TIME 13.4 SECONDS (12.5-14.5)
[2023-08-26 10:48] LABS: BLOOD UREA NITROGEN 18 MG/DL (9-23); CALCIUM LEVEL 8.9 MG/DL (8.3-10.6); CARBON DIOXIDE LEVEL 30 MMOL/L (20-31); CHLORIDE LEVEL 103 MMOL/L (98-107); CK-MB VALUE MASS 1.8 NG/ML (<3.6); CPK CREATINE PHOSPHOKINASE 39 U/L (46-171); CREATININE FOR GFR 1.19 MG/DL (0.70-1.30); GLOMERULAR FILTRATION RATE > 60.0 (>35); GLUCOSE, FASTING 154 MG/DL (74-106); MB/CK RELATIVE INDEX 4.61 (< OR =4); SODIUM LEVEL 137 MMOL/L (136-145)
[2023-08-26] MEDS: PANTOPRAZOLE 40MG VIAL IV ONE (11:04)
[2023-08-26 11:37] LABS: ALBUMIN 3.3 G/DL (3.2-5.2); BILIRUBIN,DIRECT 0.2 MG/DL (<0.4); BILIRUBIN,TOTAL 0.7 MG/DL (0.3-1.2); TOTAL PROTEIN 5.5 G/DL (5.7-8.2)
[2023-08-26] MEDS: ASPIRIN 81MG CHEW TABLET PO ONE (12:48)
[2023-08-26 12:55] LABS: HEMATOCRIT 33.6 % (42.0-52.0); HEMOGLOBIN 11.1 g/dl (13.5-17.5)
[2023-08-26 13:44] LABS: CK-MB VALUE MASS 1.6 NG/ML (<3.6)
[2023-08-26 13:45] LABS: MB/CK RELATIVE INDEX 4.21 (< OR =4)
[2023-08-26 14:30] VITALS: BP 126/58; TEMP 97; O2SAT 94
== END 2023-08-26 14:44 | disposition short-term general hospital (02) ==
LOC: EDBD 09:43 → M ED 09:43
DX: G45.9 Transient cerebral ischemic attack, unspecified (principal); I44.0 Atrioventricular block, first degree; J44.9 Chronic obstructive pulmonary disease, unspecified; R91.1 Solitary pulmonary nodule; N18.30 Chronic kidney disease, stage 3 unspecified; Z88.8 Allergy status to other drugs, medicaments and biological substances; Z79.52 Long term (current) use of systemic steroids; Z79.82 Long term (current) use of aspirin; Z79.02 Long term (current) use of antithrombotics/antiplatelets; Z79.899 Other long term (current) drug therapy
CPT/HCPCS: 70450; 70496; 70498; 71045; 80047; 80048; 80076; 82550; 82553; 83605; 84484; 85014; 85018; 85025; 85610; 85730; 86850; 86900; 86901; 93005; 93041; 94760; 96374; 99285; C9113; Q9967

== ENCOUNTER 2023-09-05 19:45 | Emergency (ER) | payer MEDICARE ==
[~2023-09-05] VITALS: Ht 167.6 cm; Wt 92.7 kg
[2023-09-05 22:26] LABS: HEMATOCRIT 31.4 % (42.0-52.0); MEAN CORPUSCULAR HEMOGLOBIN 36.6 pg (27.0-33.0); MEAN CORPUSCULAR HGB CONC 31.8 g/dl (32.0-36.5); PLATELET COUNT, AUTOMATED 358 10^3/uL (150-450); RED BLOOD COUNT 2.73 10^6/uL (4.30-6.10); WHITE BLOOD COUNT 9.6 10^3/uL (4.0-10.0)
[2023-09-05 22:46] LABS: CK-MB VALUE MASS < 1.0 NG/ML (<3.6)
[2023-09-05 22:48] LABS: CPK CREATINE PHOSPHOKINASE 26 U/L (46-171); MB/CK RELATIVE INDEX 3.84 (< OR =4)
[2023-09-05 22:49] LABS: ALBUMIN 3.5 G/DL (3.2-5.2); ALKALINE PHOSPHATASE 154 U/L (46-116); ALT/SGPT 19 U/L (7.0-40); ANISOCYTOSIS 2+; AST/SGOT 24 U/L (<34); BILIRUBIN,TOTAL 0.7 MG/DL (0.3-1.2); BLOOD UREA NITROGEN 26 MG/DL (9-23); CALCIUM LEVEL 8.9 MG/DL (8.3-10.6); CARBON DIOXIDE LEVEL 28 MMOL/L (20-31); CHLORIDE LEVEL 105 MMOL/L (98-107); CREATININE FOR GFR 1.28 MG/DL (0.70-1.30); GLOMERULAR FILTRATION RATE 57.6 (>35); GLUCOSE, FASTING 149 MG/DL (74-106); POTASSIUM SERUM 4.2 MMOL/L (3.5-5.1); SODIUM LEVEL 140 MMOL/L (136-145); TEAR DROP CELLS 1+; TOTAL PROTEIN 6.3 G/DL (5.7-8.2)
[2023-09-05 22:50] LABS: HELMET CELLS 1+
[2023-09-05 22:52] LABS: PLATELET ESTIMATE NORMAL (NORMAL)
[2023-09-05 22:53] LABS: POIKILOCYTOSIS 1+
[2023-09-05 23:02] LABS: ATYPICAL LYMPH 2 % (0-5); BASOPHILS 1 % (0-1); LYMPHOCYTES 11 % (16-44); MONOCYTES 8 % (0-5); NEUTROPHILS 78 % (28-66)
[2023-09-06] MEDS: PANTOPRAZOLE 40MG VIAL IV ONE (00:43)
[2023-09-06] MEDS: ONDANSETRON 4MG 2ML VIAL IV ONE (00:44)
[2023-09-06] MEDS ORDERED: PROT1TAB2 PO (00:45)
[2023-09-06] MEDS ORDERED: ONDA-282 PO (00:45)
[2023-09-06 00:47] VITALS: BP 139/70; TEMP 97.5; O2SAT 100
== END 2023-09-06 01:46 | disposition home or self-care (01) ==
LOC: M ED 19:45
DX: K29.70 Gastritis, unspecified, without bleeding (principal); T50.905A Adverse effect of unspecified drugs, medicaments and biological substances, initial encounter; M10.9 Gout, unspecified; M54.50 Low back pain, unspecified; I25.2 Old myocardial infarction; I10 Essential (primary) hypertension; K59.00 Constipation, unspecified; J44.9 Chronic obstructive pulmonary disease, unspecified; E78.5 Hyperlipidemia, unspecified; Z87.891 Personal history of nicotine dependence; Z88.8 Allergy status to other drugs, medicaments and biological substances; Z79.01 Long term (current) use of anticoagulants; Z95.0 Presence of cardiac pacemaker; Z79.82 Long term (current) use of aspirin; Z79.02 Long term (current) use of antithrombotics/antiplatelets; Z79.52 Long term (current) use of systemic steroids; Z79.899 Other long term (current) drug therapy; Z79.810 Long term (current) use of selective estrogen receptor modulators (SERMs)
CPT/HCPCS: 71045; 74018; 80053; 82550; 82553; 84484; 85025; 86850; 86900; 86901; 87486; 87581; 87633; 87798; 93005; 96374; 96375; 99284; C9113; J2405

== ENCOUNTER 2023-09-10 11:18 | Inpatient (IN) | payer MEDICARE ==
[2023-09-10] VITALS (10 sets, daily range): BP systolic 108–130; BP diastolic 56–67; TEMP 98–98.8; O2SAT 93–98
[~2023-09-10] VITALS: Ht 167.6 cm; Wt 90.0 kg
[2023-09-10] MEDS: MECLIZINE 25 MG TABLET PO ONE (12:29)
[2023-09-10 12:42] LABS: BASO % 0.5 % (0.0-1.0); EOS % 0.5 % (0.0-3.0); HEMATOCRIT 21.7 % (42.0-52.0); LYMPH # 0.6 10^3/uL (1.5-5.0); LYMPH % 7.2 % (24.0-44.0); MEAN CORPUSCULAR HEMOGLOBIN 35.1 pg (27.0-33.0); MEAN CORPUSCULAR HGB CONC 30.9 g/dl (32.0-36.5); MEAN CORPUSCULAR VOLUME 113.6 fl (80.0-96.0); MONO % 11.7 % (2.0-8.0); NEUTROPHILS # 6.3 10^3/uL (1.5-8.5); NEUTROPHILS % 76.5 % (36.0-66.0); PLATELET COUNT, AUTOMATED 298 10^3/uL (150-450); RED BLOOD COUNT 1.91 10^6/uL (4.30-6.10); WHITE BLOOD COUNT 8.2 10^3/uL (4.0-10.0)
[2023-09-10 12:55] LABS: HEMOGLOBIN 6.7 g/dl (13.5-17.5)
[2023-09-10 12:56] LABS: CALCIUM LEVEL 8.7 MG/DL (8.3-10.6); CREATININE FOR GFR 1.25 MG/DL (0.70-1.30); GLOMERULAR FILTRATION RATE 59.2 (>35); POTASSIUM SERUM 3.5 MMOL/L (3.5-5.1)
[2023-09-10] MEDS ORDERED: ISOVUE-370 76% 100ML VIAL As Ordered ONE (12:58)
[2023-09-10 13:09] LABS: ALBUMIN 3.4 G/DL (3.2-5.2); BILIRUBIN,DIRECT 0.2 MG/DL (<0.4); BILIRUBIN,TOTAL 0.5 MG/DL (0.3-1.2); TOTAL PROTEIN 5.6 G/DL (5.7-8.2)
[2023-09-10] MEDS ORDERED: ONDA-282 PO (14:42)
[2023-09-10] MEDS ORDERED: HOME MED LIST COMPLETE! XX SCH (14:45)
[2023-09-10] MEDS ORDERED: LEVALBUTEROL HFA 45MCG/ACT 15GM INHALER INH PRN (15:25)
[2023-09-10] MEDS ORDERED: ACETAMINOPHEN TAB 650MG DOSE (2X325MG) PO PRN (15:25)
[2023-09-10] MEDS ORDERED: COLCHICINE 0.6 MG TABLET PO PRN (15:25)
[2023-09-10] MEDS ORDERED: ONDANSETRON 4MG ORAL DISINTEGRATING TAB PO PRN (15:25)
[2023-09-10] MEDS ORDERED: MOM 30ML SUSPENSION UDC PO PRN (17:20)
[2023-09-10] MEDS: SUCRALFATE 1 GM TAB PO SCH (17:53)
[2023-09-10] MEDS: ADVAIR HFA 230/21MCG INHALER INH SCH (19:53)
[2023-09-10] MEDS: DOCUSATE SODIUM 100MG CAPSULE PO SCH (20:50)
[2023-09-10] MEDS: SENNA 8.6 MG TAB (SENOKOT) PO SCH (20:51)
[2023-09-10] MEDS: PANTOPRAZOLE 40MG VIAL IV SCH (20:51)
[2023-09-10] MEDS: ATORVASTATIN 20 MG TAB PO SCH (20:52)
[2023-09-10] MEDS: MONTELUKAST 10 MG TAB PO SCH (20:53)
[2023-09-10] MEDS: METOPROLOL TART 50 MG TAB PO SCH (20:54)
[2023-09-10 22:15] LABS: HEMATOCRIT 26.1 % (42.0-52.0); HEMOGLOBIN 8.5 g/dl (13.5-17.5); MEAN CORPUSCULAR HEMOGLOBIN 33.7 pg (27.0-33.0); MEAN CORPUSCULAR HGB CONC 32.6 g/dl (32.0-36.5); MEAN CORPUSCULAR VOLUME 103.6 fl (80.0-96.0); PLATELET COUNT, AUTOMATED 273 10^3/uL (150-450); RED BLOOD COUNT 2.52 10^6/uL (4.30-6.10); WHITE BLOOD COUNT 8.1 10^3/uL (4.0-10.0)
[2023-09-10 22:41] LABS: INR 1.08; PARTIAL THROMBOPLASTIN TIME 26.8 SECONDS (24.8-34.2); PROTHROMBIN TIME 13.7 SECONDS (12.5-14.5)
[2023-09-11 04:09] VITALS: BP 123/63; TEMP 98.1; O2SAT 93
[2023-09-11 06:45] LABS: HEMATOCRIT 24.4 % (42.0-52.0); HEMOGLOBIN 8.1 g/dl (13.5-17.5); MEAN CORPUSCULAR HEMOGLOBIN 34.3 pg (27.0-33.0); MEAN CORPUSCULAR HGB CONC 33.2 g/dl (32.0-36.5); MEAN CORPUSCULAR VOLUME 103.4 fl (80.0-96.0); PLATELET COUNT, AUTOMATED 276 10^3/uL (150-450); RED BLOOD COUNT 2.36 10^6/uL (4.30-6.10); WHITE BLOOD COUNT 7.7 10^3/uL (4.0-10.0)
[2023-09-11 07:11] LABS: ALBUMIN 3.3 G/DL (3.2-5.2); CALCIUM LEVEL 8.2 MG/DL (8.3-10.6); CREATININE FOR GFR 1.34 MG/DL (0.70-1.30); GLOMERULAR FILTRATION RATE 54.6 (>35); POTASSIUM SERUM 3.5 MMOL/L (3.5-5.1); TOTAL PROTEIN 5.2 G/DL (5.7-8.2)
[2023-09-11] MEDS: LORATADINE 10 MG TAB PO SCH (08:00)
[2023-09-11] MEDS: FERROUS SULFATE 325MG TAB PO SCH (08:01)
[2023-09-11] MEDS: FOLIC ACID 1MG TAB PO SCH (08:01)
[2023-09-11] MEDS: SPIRONOLACTONE 25 MG TAB PO SCH (08:01)
[2023-09-11] MEDS: allopurinoL 300 MG TAB PO SCH (08:01)
[2023-09-11] MEDS: FUROSEMIDE 40 MG TAB PO SCH (08:02)
[2023-09-11] MEDS ORDERED: DOCUSATE SODIUM 100MG CAPSULE PO SCH (09:00)
[2023-09-11] MEDS: ASPIRIN 81MG ENTERIC TABLET PO SCH (11:03)
[2023-09-11] MEDS: MECLIZINE 25 MG TABLET PO PRN (11:05)
[2023-09-11 12:00] VITALS: BP 123/63; TEMP 98.1; O2SAT 96
[2023-09-11 20:00] VITALS: BP 124/64; TEMP 97.9; O2SAT 95
[2023-09-11] MEDS: DOCUSATE SODIUM 100MG CAPSULE PO SCH (21:38)
[2023-09-12 04:10] VITALS: BP 110/60; TEMP 98.1; O2SAT 95
[2023-09-12 06:11] LABS: BASO # 0.1 10^3/uL (0.0-0.2); BASO % 0.7 % (0.0-1.0); EOS # 0.1 10^3/uL (0.0-0.5); EOS % 1.3 % (0.0-3.0); HEMATOCRIT 28.8 % (42.0-52.0); HEMOGLOBIN 9.2 g/dl (13.5-17.5); LYMPH # 0.7 10^3/uL (1.5-5.0); LYMPH % 7.5 % (24.0-44.0); MEAN CORPUSCULAR HEMOGLOBIN 33.5 pg (27.0-33.0); MEAN CORPUSCULAR HGB CONC 31.9 g/dl (32.0-36.5); MEAN CORPUSCULAR VOLUME 104.7 fl (80.0-96.0); MONO # 0.9 10^3/uL (0.0-0.8); MONO % 9.5 % (2.0-8.0); NEUTROPHILS # 6.9 10^3/uL (1.5-8.5); NEUTROPHILS % 77.6 % (36.0-66.0); PLATELET COUNT, AUTOMATED 313 10^3/uL (150-450); RED BLOOD COUNT 2.75 10^6/uL (4.30-6.10); WHITE BLOOD COUNT 8.9 10^3/uL (4.0-10.0)
[2023-09-12 06:37] LABS: CALCIUM LEVEL 8.7 MG/DL (8.3-10.6); CREATININE FOR GFR 1.32 MG/DL (0.70-1.30); GLOMERULAR FILTRATION RATE 55.6 (>35); POTASSIUM SERUM 3.6 MMOL/L (3.5-5.1)
[2023-09-12 07:57] VITALS: BP 125/59
[2023-09-12] MEDS: CLOPIDOGREL 75 MG TAB PO SCH (10:13)
[2023-09-12] MEDS: MAGNESIUM CITRATE 300ML BTL PO ONE (10:14)
[2023-09-12] MEDS ORDERED: OMEP40CA4 PO (11:49)
[2023-09-12] MEDS ORDERED: SUCR1TA PO (11:49)
[2023-09-12 11:50] VITALS: BP 129/60; TEMP 97.2; O2SAT 93
[2023-09-12] MEDS ORDERED: SENN1TAB96 PO (11:51)
[2023-09-12] MEDS ORDERED: SFHMOMUDC PO (12:21)
== END 2023-09-12 13:59 | disposition home or self-care (01) | DRG 812 ==
LOC: M ED 11:18 → M ED INP 15:23 → M MSPAV 17:14
PROVIDERS: ADMIT Internal Medicine; ATTEND Internal Medicine
PROC: 30233N1 Transfusion of Nonautologous Red Blood Cells into Peripheral Vein, Percutaneous Approach (ICD-10-PCS; principal; 2023-09-10)
DX: D62 Acute posthemorrhagic anemia (principal); K92.2 Gastrointestinal hemorrhage, unspecified; J44.9 Chronic obstructive pulmonary disease, unspecified; I50.9 Heart failure, unspecified; I27.81 Cor pulmonale (chronic); N18.9 Chronic kidney disease, unspecified; I25.10 Atherosclerotic heart disease of native coronary artery without angina pectoris; R53.1 Weakness; G47.33 Obstructive sleep apnea (adult) (pediatric); M10.9 Gout, unspecified; Z79.02 Long term (current) use of antithrombotics/antiplatelets; Z95.1 Presence of aortocoronary bypass graft; R53.81 Other malaise; I71.43 Infrarenal abdominal aortic aneurysm, without rupture; Z79.82 Long term (current) use of aspirin; M19.90 Unspecified osteoarthritis, unspecified site; Z88.8 Allergy status to other drugs, medicaments and biological substances; Z79.899 Other long term (current) drug therapy; K64.8 Other hemorrhoids; I25.2 Old myocardial infarction; Z95.2 Presence of prosthetic heart valve; Z98.41 Cataract extraction status, right eye; Z98.42 Cataract extraction status, left eye

== ENCOUNTER → 2023-09-10 | Outpatient (CLI) | payer MEDICARE ==
[~2023-09-10] MED LIST changes: +ONDA-282 PO; +PROT1TAB2 PO; -SPIR-10; +SPIR-10 PO; -TREL1AER; +TREL1AER INH
[2023-09-10 09:56] LABS: BASO % 0.5 % (0.0-1.0); EOS # 0.1 10^3/uL (0.0-0.5); EOS % 1.2 % (0.0-3.0); HEMATOCRIT 22.3 % (42.0-52.0); LYMPH # 0.7 10^3/uL (1.5-5.0); LYMPH % 8.4 % (24.0-44.0); MEAN CORPUSCULAR HEMOGLOBIN 35.7 pg (27.0-33.0); MEAN CORPUSCULAR HGB CONC 31.4 g/dl (32.0-36.5); MEAN CORPUSCULAR VOLUME 113.8 fl (80.0-96.0); MONO # 0.9 10^3/uL (0.0-0.8); MONO % 11.2 % (2.0-8.0); NEUTROPHILS # 6.2 10^3/uL (1.5-8.5); NEUTROPHILS % 74.6 % (36.0-66.0); PLATELET COUNT, AUTOMATED 305 10^3/uL (150-450); RED BLOOD COUNT 1.96 10^6/uL (4.30-6.10); WHITE BLOOD COUNT 8.3 10^3/uL (4.0-10.0)
[2023-09-10 10:02] LABS: INR 1.03; PARTIAL THROMBOPLASTIN TIME 27.2 SECONDS (24.8-34.2); PROTHROMBIN TIME 13.2 SECONDS (12.5-14.5)
[2023-09-10 10:16] LABS: ALBUMIN 3.4 G/DL (3.2-5.2); BILIRUBIN,TOTAL 0.6 MG/DL (0.3-1.2); CREATININE FOR GFR 1.34 MG/DL (0.70-1.30); GLOMERULAR FILTRATION RATE 54.6 (>35); POTASSIUM SERUM 3.8 MMOL/L (3.5-5.1); TOTAL PROTEIN 5.8 G/DL (5.7-8.2)
== END ==
LOC: M PLALAB 06:56
PROVIDERS: ATTEND Internal Medicine Hematology
DX: I25.10 Atherosclerotic heart disease of native coronary artery without angina pectoris (principal)

== ENCOUNTER → 2023-09-21 | Outpatient (CLI) | payer MEDICARE ==
[~2023-09-21] MED LIST changes: +OMEP40CA4 PO; +SENN1TAB96 PO; +SFHMOMUDC PO; +SUCR1TA PO
[2023-09-21 12:01] LABS: BASO # 0.1 10^3/uL (0.0-0.2); BASO % 0.8 % (0.0-1.0); EOS # 0.2 10^3/uL (0.0-0.5); EOS % 2.4 % (0.0-3.0); HEMATOCRIT 30.1 % (42.0-52.0); LYMPH # 0.6 10^3/uL (1.5-5.0); LYMPH % 7.5 % (24.0-44.0); MEAN CORPUSCULAR HEMOGLOBIN 32.4 pg (27.0-33.0); MEAN CORPUSCULAR HGB CONC 29.9 g/dl (32.0-36.5); MEAN CORPUSCULAR VOLUME 108.3 fl (80.0-96.0); MONO # 0.8 10^3/uL (0.0-0.8); MONO % 11.4 % (2.0-8.0); NEUTROPHILS # 5.6 10^3/uL (1.5-8.5); PLATELET COUNT, AUTOMATED 316 10^3/uL (150-450); RED BLOOD COUNT 2.78 10^6/uL (4.30-6.10); WHITE BLOOD COUNT 7.4 10^3/uL (4.0-10.0)
== END ==
LOC: M PLALAB 06:52
PROVIDERS: ATTEND Internal Medicine Hematology
DX: D50.0 Iron deficiency anemia secondary to blood loss (chronic) (principal)

== ENCOUNTER 2023-10-01 12:10 | Outpatient (CLI) | payer MEDICARE ==
[2023-10-01 12:10] VITALS: BP 138/65; O2SAT 97
[~2023-10-01 12:10] MED LIST changes: +ALBUTEROL SULFATE 2.5MG/0.5ML INH NEB SOLN INH PRN; +EPINEPHrine INJ 1 MG/ML 1ML AMP IM PRN; +NS 1,000 ML IV SCH; +diphenhydrAMINE 50MG/ML VIAL IV PRN; +methylPREDNISolone 125MG 2ML VIAL IV PRN
[2023-10-01] MEDS: IRON SUCROSE 300 MG in NS 250 ML IV ONE (12:14)
[2023-10-01 13:50] VITALS: BP 141/63; O2SAT 97
== END 2023-10-01 13:50 ==
LOC: M INFU 12:10
PROVIDERS: ATTEND Internal Medicine Hematology
DX: D50.9 Iron deficiency anemia, unspecified (principal); Z91.048 Other nonmedicinal substance allergy status; Z88.8 Allergy status to other drugs, medicaments and biological substances
CPT/HCPCS: 96365; 96366; J1756

== ENCOUNTER 2023-10-08 11:45 | Outpatient (CLI) | payer MEDICARE ==
[~2023-10-08 11:45] MED LIST changes: -NS 1,000 ML IV SCH
[2023-10-08 12:05] VITALS: BP 148/88; O2SAT 96
[2023-10-08] MEDS ORDERED: NS 1,000 ML IV SCH (12:30)
[2023-10-08] MEDS: IRON SUCROSE 300 MG in NS 250 ML OVER 90 MIN. IV ONE (12:33)
[2023-10-08 13:50] VITALS: BP 142/36; O2SAT 95
== END 2023-10-08 13:45 ==
LOC: M INFU 11:45
PROVIDERS: ATTEND Internal Medicine Hematology
DX: D50.9 Iron deficiency anemia, unspecified (principal); Z88.8 Allergy status to other drugs, medicaments and biological substances
CPT/HCPCS: 96365; 96366; J1756

== ENCOUNTER → 2023-10-30 | Outpatient (CLI) | payer MEDICARE ==
[~2023-10-30] MED LIST changes: -ALBUTEROL SULFATE 2.5MG/0.5ML INH NEB SOLN INH PRN; -EPINEPHrine INJ 1 MG/ML 1ML AMP IM PRN; -diphenhydrAMINE 50MG/ML VIAL IV PRN; -methylPREDNISolone 125MG 2ML VIAL IV PRN
[2023-10-30 10:08] LABS: BASO # 0.1 10^3/uL (0.0-0.2); BASO % 1.1 % (0.0-1.0); EOS # 0.4 10^3/uL (0.0-0.5); EOS % 4.4 % (0.0-3.0); HEMATOCRIT 36.6 % (42.0-52.0); HEMOGLOBIN 11.6 g/dl (13.5-17.5); LYMPH # 0.7 10^3/uL (1.5-5.0); LYMPH % 9.2 % (24.0-44.0); MEAN CORPUSCULAR HEMOGLOBIN 34.4 pg (27.0-33.0); MEAN CORPUSCULAR HGB CONC 31.7 g/dl (32.0-36.5); MEAN CORPUSCULAR VOLUME 108.6 fl (80.0-96.0); MONO # 0.8 10^3/uL (0.0-0.8); MONO % 10.2 % (2.0-8.0); NEUTROPHILS # 5.8 10^3/uL (1.5-8.5); NEUTROPHILS % 72.6 % (36.0-66.0); PLATELET COUNT, AUTOMATED 255 10^3/uL (150-450); RED BLOOD COUNT 3.37 10^6/uL (4.30-6.10)
== END ==
LOC: M PLALAB 07:09
PROVIDERS: ATTEND Internal Medicine Hematology
DX: D50.0 Iron deficiency anemia secondary to blood loss (chronic) (principal)

== ENCOUNTER → 2023-12-25 | Outpatient (CLI) | payer MEDICARE ==
[~2023-12-25] MED LIST changes: +GABA-1172 PO; -GABA-282 PO
== END ==
LOC: M WUC 08:05
PROVIDERS: ATTEND Internal Medicine Pulmonary Disease
DX: J44.9 Chronic obstructive pulmonary disease, unspecified (principal)

== ENCOUNTER → 2024-01-08 | Outpatient (CLI) | payer MEDICARE ==
[2024-01-08 10:46] LABS: BASO # 0.1 10^3/uL (0.0-0.2); EOS # 0.2 10^3/uL (0.0-0.5); EOS % 2.6 % (0.0-3.0); HEMATOCRIT 35.4 % (42.0-52.0); HEMOGLOBIN 11.7 g/dl (13.5-17.5); LYMPH # 0.7 10^3/uL (1.5-5.0); LYMPH % 8.1 % (24.0-44.0); MEAN CORPUSCULAR HGB CONC 33.1 g/dl (32.0-36.5); MONO # 0.8 10^3/uL (0.0-0.8); MONO % 9.4 % (2.0-8.0); NEUTROPHILS # 6.8 10^3/uL (1.5-8.5); NEUTROPHILS % 76.7 % (36.0-66.0); PLATELET COUNT, AUTOMATED 251 10^3/uL (150-450); RED BLOOD COUNT 3.16 10^6/uL (4.30-6.10); WHITE BLOOD COUNT 8.9 10^3/uL (4.0-10.0)
== END ==
LOC: M PLALAB 06:50
PROVIDERS: ATTEND Internal Medicine Hematology
DX: D50.0 Iron deficiency anemia secondary to blood loss (chronic) (principal)

== ENCOUNTER → 2024-01-16 | Outpatient (CLI) | payer MEDICARE ==
[~2024-01-16] MED LIST changes: +LEVA15HF2 INH; -LEVAINH INH
[2024-01-16 10:22] LABS: BASO # 0.1 10^3/uL (0.0-0.2); EOS # 0.2 10^3/uL (0.0-0.5); EOS % 2.5 % (0.0-3.0); HEMATOCRIT 32.8 % (42.0-52.0); HEMOGLOBIN 10.8 g/dl (13.5-17.5); LYMPH # 0.7 10^3/uL (1.5-5.0); LYMPH % 8.8 % (24.0-44.0); MEAN CORPUSCULAR HEMOGLOBIN 37.1 pg (27.0-33.0); MEAN CORPUSCULAR HGB CONC 32.9 g/dl (32.0-36.5); MEAN CORPUSCULAR VOLUME 112.7 fl (80.0-96.0); MONO # 0.8 10^3/uL (0.0-0.8); MONO % 9.5 % (2.0-8.0); NEUTROPHILS # 6.2 10^3/uL (1.5-8.5); NEUTROPHILS % 75.3 % (36.0-66.0); PLATELET COUNT, AUTOMATED 267 10^3/uL (150-450); RED BLOOD COUNT 2.91 10^6/uL (4.30-6.10); WHITE BLOOD COUNT 8.3 10^3/uL (4.0-10.0)
[2024-01-16 10:48] LABS: FERRITIN 29.6 NG/ML (10.5-307.3)
[2024-01-16 10:49] LABS: IRON (FE) 50 UG/DL (65-175); PERCENT SATURATION 14.2 % (19.7-50.0); THYROID STIMULATING HORMONE 2.185 uIU/ML (0.55-4.78); TOTAL IRON BINDING CAPACITY 351 UG/DL (250-425)
[2024-01-16 10:51] LABS: FREE T4 1.14 NG/DL (0.89-1.76)
[2024-01-16 10:52] LABS: VITAMIN B12 LEVEL 728 PG/ML (211-911)
[2024-01-16 10:54] LABS: FOLATE > 24.0 NG/ML (>5.4)
== END ==
LOC: M PLALAB 07:15
PROVIDERS: ATTEND Internal Medicine Hematology
DX: D75.89 Other specified diseases of blood and blood-forming organs (principal); D50.9 Iron deficiency anemia, unspecified; Z79.899 Other long term (current) drug therapy

== ENCOUNTER → 2024-02-06 | Outpatient (CLI) | payer MEDICARE ==
[~2024-02-06] VITALS: Ht 165.1 cm; Wt 93.1 kg
[~2024-02-06] MED LIST changes: +ALBUTEROL SULFATE 2.5MG/0.5ML INH NEB SOLN INH PRN; +EPINEPHrine INJ 1 MG/ML 1ML AMP IM PRN; +NS 1,000 ML IV SCH; +diphenhydrAMINE 50MG/ML VIAL IV PRN; +methylPREDNISolone 125MG 2ML VIAL IV PRN
[2024-02-06 13:00] VITALS: BP 158/65; O2SAT 95
[2024-02-06] MEDS: IRON SUCROSE 300 MG in NS 250 ML IV ONE (13:32)
[2024-02-06 14:30] VITALS: BP 123/70; O2SAT 93
[2024-02-06 15:10] VITALS: BP 134/61; O2SAT 96
== END ==
LOC: M INFU 11:59
PROVIDERS: ATTEND Internal Medicine Hematology
DX: D50.9 Iron deficiency anemia, unspecified (principal); Z88.8 Allergy status to other drugs, medicaments and biological substances
CPT/HCPCS: 96365; 96366; J1756

== ENCOUNTER 2024-02-26 14:00 | Outpatient (CLI) | payer MEDICARE ==
[2024-02-26 14:00] VITALS: BP 133/71; O2SAT 97
[~2024-02-26 14:00] MED LIST changes: -LEVA0.6322 INH; +LEVA0.6330 INH; -LEVA1.2519 INH; +LEVA1.2526 INH; -NS 1,000 ML IV SCH
[2024-02-26] MEDS: IRON SUCROSE 300 MG in NS 250 ML OVER 90 MIN. IV ONE (14:05)
[2024-02-26 15:40] VITALS: BP 147/63; O2SAT 96
== END 2024-02-26 15:40 ==
LOC: M INFU 14:00
PROVIDERS: ATTEND Internal Medicine Hematology
DX: D50.9 Iron deficiency anemia, unspecified (principal); Z88.8 Allergy status to other drugs, medicaments and biological substances; Z91.048 Other nonmedicinal substance allergy status
CPT/HCPCS: 96365; 96366; J1756

== ENCOUNTER 2024-03-07 13:25 | Outpatient (CLI) | payer MEDICARE ==
[~2024-03-07] VITALS: Ht 167.6 cm; Wt 97.0 kg
[2024-03-07 13:25] VITALS: BP 147/65; O2SAT 98
[2024-03-07] MEDS: IRON SUCROSE 300 MG in NS 250 ML OVER 90 MIN. IV ONE (14:15)
[2024-03-07 15:52] VITALS: BP 159/66; O2SAT 97
== END 2024-03-07 15:55 ==
LOC: M INFU 13:25
PROVIDERS: ATTEND Internal Medicine Hematology
DX: D50.9 Iron deficiency anemia, unspecified (principal); Z88.8 Allergy status to other drugs, medicaments and biological substances; Z91.048 Other nonmedicinal substance allergy status
CPT/HCPCS: 96365; 96366; J1756

== ENCOUNTER → 2024-03-27 | Outpatient (CLI) | payer MEDICARE ==
[~2024-03-27] MED LIST changes: -ALBUTEROL SULFATE 2.5MG/0.5ML INH NEB SOLN INH PRN; -EPINEPHrine INJ 1 MG/ML 1ML AMP IM PRN; -diphenhydrAMINE 50MG/ML VIAL IV PRN; -methylPREDNISolone 125MG 2ML VIAL IV PRN
[2024-03-27 11:27] LABS: BASO # 0.1 10^3/uL (0.0-0.2); BASO % 1.4 % (0.0-1.0); EOS # 0.1 10^3/uL (0.0-0.5); EOS % 2.2 % (0.0-3.0); HEMATOCRIT 37.4 % (42.0-52.0); HEMOGLOBIN 12.3 g/dl (13.5-17.5); LYMPH # 0.6 10^3/uL (1.5-5.0); LYMPH % 9.5 % (24.0-44.0); MEAN CORPUSCULAR HGB CONC 32.9 g/dl (32.0-36.5); MEAN CORPUSCULAR VOLUME 112.7 fl (80.0-96.0); MONO # 0.7 10^3/uL (0.0-0.8); MONO % 10.9 % (2.0-8.0); NEUTROPHILS # 4.7 10^3/uL (1.5-8.5); NEUTROPHILS % 74.4 % (36.0-66.0); PLATELET COUNT, AUTOMATED 220 10^3/uL (150-450); RED BLOOD COUNT 3.32 10^6/uL (4.30-6.10); WHITE BLOOD COUNT 6.3 10^3/uL (4.0-10.0)
[2024-03-27 11:51] LABS: HEMOGLOBIN A1c 5.4 % (4.0-6.0)
[2024-03-27 12:04] LABS: BILIRUBIN,TOTAL 0.6 MG/DL (0.3-1.2); CHOLESTEROL RISK RATIO 3.36 (<5); CREATININE FOR GFR 1.34 MG/DL (0.70-1.30); GLOMERULAR FILTRATION RATE 54.5 (>35); HDL CHOLESTEROL 36.8 MG/DL (>40); NON-HDL-C 87.2 MG/DL; TOTAL PROTEIN 6.5 G/DL (5.7-8.2)
[2024-03-27 12:07] LABS: FREE T4 1.1 NG/DL (0.89-1.76); THYROID STIMULATING HORMONE 2.589 uIU/ML (0.55-4.78)
== END ==
LOC: M PLALAB 06:53
PROVIDERS: ATTEND Student in an Organized Health Care Education/Training Program
DX: I10 Essential (primary) hypertension (principal); Z76.89 Persons encountering health services in other specified circumstances; Z13.220 Encounter for screening for lipoid disorders; Z13.1 Encounter for screening for diabetes mellitus; Z13.21 Encounter for screening for nutritional disorder; Z13.29 Encounter for screening for other suspected endocrine disorder; Z79.899 Other long term (current) drug therapy

== ENCOUNTER → 2024-04-11 | Outpatient (REF) | payer MEDICARE | LOC: M LAB REF 12:16 | PROVIDERS: ATTEND Internal Medicine Pulmonary Disease | DX: R05.9 Cough, unspecified (principal) ==

== ENCOUNTER 2024-05-16 17:33 | Emergency (ER) | payer MEDICARE ==
[~2024-05-16] VITALS: Ht 172.7 cm; Wt 93.0 kg
[~2024-05-16 17:33] MED LIST changes: -CLAR10CA3 PO; -ECOT81TA5 PO; -ELIQ5TAB PO; -MAGN400T2 PO; -MELA5CAP2 PO; -METO25TA4 PO; -OMEP40CA5 PO; -SENN1TAB85 PO; -SUCR1TAB56 PO; -oxygen
[2024-05-16] MEDS ORDERED: MELA5CAP2 PO (18:08)
[2024-05-16] MEDS ORDERED: CLAR10CA3 PO (18:08)
[2024-05-16] MEDS ORDERED: LEVA15HF2 INH (18:08)
[2024-05-16] MEDS ORDERED: TRAM50TA2 PO (18:08)
[2024-05-16] MEDS ORDERED: METO25TA4 PO (18:08)
[2024-05-16] MEDS ORDERED: ECOT81TA5 PO (18:08)
[2024-05-16] MEDS ORDERED: ELIQ5TAB PO (18:08)
[2024-05-16] MEDS ORDERED: MAGN400T2 PO (18:08)
[2024-05-16] MEDS ORDERED: oxygen (18:08)
[2024-05-16 18:12] LABS: BASO % 0.2 % (0.0-1.0); EOS % 0.3 % (0.0-3.0); LYMPH # 0.8 10^3/uL (1.5-5.0); LYMPH % 7.7 % (24.0-44.0); MEAN CORPUSCULAR HEMOGLOBIN 34.5 pg (27.0-33.0); MEAN CORPUSCULAR HGB CONC 30.5 g/dl (32.0-36.5); MEAN CORPUSCULAR VOLUME 113.2 fl (80.0-96.0); MONO % 10.4 % (2.0-8.0); NEUTROPHILS # 7.7 10^3/uL (1.5-8.5); NEUTROPHILS % 77.8 % (36.0-66.0); PLATELET COUNT, AUTOMATED 313 10^3/uL (150-450); RED BLOOD COUNT 1.74 10^6/uL (4.30-6.10); WHITE BLOOD COUNT 9.9 10^3/uL (4.0-10.0)
[2024-05-16 18:20] LABS: HEMATOCRIT 19.7 % (42.0-52.0)
[2024-05-16 18:40] LABS: CREATININE FOR GFR 1.48 MG/DL (0.70-1.30); GLOMERULAR FILTRATION RATE 48.6 (>35); POTASSIUM SERUM 3.5 MMOL/L (3.5-5.1)
[2024-05-16 19:11] LABS: ALBUMIN 3.2 G/DL (3.2-5.2); BILIRUBIN,DIRECT 0.2 MG/DL (<0.4); BILIRUBIN,TOTAL 0.5 MG/DL (0.3-1.2)
[2024-05-16 19:25] LABS: INR 1.28; PROTHROMBIN TIME 16.2 SECONDS (12.5-14.5)
[2024-05-16] MEDS ORDERED: OMEP40CA5 PO (21:11)
[2024-05-16] MEDS ORDERED: SENN1TAB85 PO (21:11)
[2024-05-16] MEDS ORDERED: SUCR1TAB56 PO (21:11)
[2024-05-16] MEDS ORDERED: HOME MED LIST COMPLETE! XX SCH (21:15)
[2024-05-16] MEDS ORDERED: ISOVUE-370 76% 100ML VIAL As Ordered ONE (21:51)
[2024-05-16 23:44] VITALS: BP 123/58; TEMP 97.2; O2SAT 99
[2024-05-16] MEDS: PANTOPRAZOLE 40MG VIAL IV ONE (23:54)
[2024-05-16] MEDS: FUROSEMIDE 40MG/4ML VIAL IV ONE (23:55)
[2024-05-17] MEDS: diphenhydrAMINE 25MG CAP PO ONE
[2024-05-17 00:03] VITALS: BP 135/61; TEMP 96.8; O2SAT 100
[2024-05-17] MEDS: LR 500 ML IV ONE (00:16)
[2024-05-17 00:48] VITALS: BP 153/67; TEMP 97.3; O2SAT 99
[2024-05-17 01:16] VITALS: BP 145/55; TEMP 96.9; O2SAT 100
[2024-05-17] MEDS: NS (Normal Saline) 0.9% 1,000 ML IV SCH (01:22)
== END 2024-05-17 01:31 | disposition short-term general hospital (02) ==
LOC: M ED 17:33
DX: D64.9 Anemia, unspecified (principal); K92.2 Gastrointestinal hemorrhage, unspecified; I49.1 Atrial premature depolarization; I10 Essential (primary) hypertension; J44.9 Chronic obstructive pulmonary disease, unspecified; Z86.79 Personal history of other diseases of the circulatory system; Z95.0 Presence of cardiac pacemaker; Z79.01 Long term (current) use of anticoagulants; Z87.891 Personal history of nicotine dependence; Z88.8 Allergy status to other drugs, medicaments and biological substances; Z91.048 Other nonmedicinal substance allergy status; Z79.82 Long term (current) use of aspirin; Z79.02 Long term (current) use of antithrombotics/antiplatelets; Z79.83 Long term (current) use of bisphosphonates; Z79.899 Other long term (current) drug therapy
CPT/HCPCS: 71045; 74174; 80048; 80076; 85025; 85610; 86850; 86900; 86901; 86920; 93005; 96365; 96375; 99285; J1940; J2470; P9016; Q9967

== ENCOUNTER → 2024-05-16 | Outpatient (CLI) | payer MEDICARE ==
[~2024-05-16] MED LIST changes: +CLAR10CA3 PO; +ECOT81TA5 PO; +ELIQ5TAB PO; +MAGN400T2 PO; +MELA5CAP2 PO; +METO25TA4 PO; +OMEP40CA5 PO; +SENN1TAB85 PO; +SUCR1TAB56 PO; +oxygen
[2024-05-16 16:27] LABS: MEAN CORPUSCULAR HEMOGLOBIN 34.9 pg (27.0-33.0); MEAN CORPUSCULAR HGB CONC 30.2 g/dl (32.0-36.5); PLATELET COUNT, AUTOMATED 313 10^3/uL (150-450); RED BLOOD COUNT 1.72 10^6/uL (4.30-6.10); WHITE BLOOD COUNT 9.7 10^3/uL (4.0-10.0)
[2024-05-16 16:47] LABS: ALBUMIN 3.1 G/DL (3.2-5.2); BILIRUBIN,TOTAL 0.5 MG/DL (0.3-1.2); CALCIUM LEVEL 8.2 MG/DL (8.3-10.6); CREATININE FOR GFR 1.51 MG/DL (0.70-1.30); GLOMERULAR FILTRATION RATE 47.5 (>35); PERCENT SATURATION 7.6 % (19.7-50.0); POTASSIUM SERUM 3.8 MMOL/L (3.5-5.1); TOTAL PROTEIN 5.8 G/DL (5.7-8.2)
[2024-05-16 16:49] LABS: FERRITIN 13.7 NG/ML (10.5-307.3)
[2024-05-16 16:50] LABS: HEMATOCRIT 19.9 % (42.0-52.0); MEAN CORPUSCULAR VOLUME 115.7 fl (80.0-96.0)
== END ==
LOC: M PLALAB 14:05
PROVIDERS: ATTEND Student in an Organized Health Care Education/Training Program
DX: D50.9 Iron deficiency anemia, unspecified (principal); I63.9 Cerebral infarction, unspecified

== ENCOUNTER → 2024-05-28 | Outpatient (CLI) | payer MEDICARE ==
[~2024-05-28] MED LIST changes: +CLAR10CA3 PO; +ECOT81TA5 PO; +ELIQ5TAB PO; +MAGN400T2 PO; +MELA5CAP2 PO; +METO25TA4 PO; +OMEP40CA5 PO; +SENN1TAB85 PO; +SUCR1TAB56 PO; +oxygen
[2024-05-28 10:40] LABS: HEMATOCRIT 30.3 % (42.0-52.0)
[2024-05-28 10:47] LABS: ALBUMIN 3.5 G/DL (3.2-5.2); BILIRUBIN,TOTAL 0.8 MG/DL (0.3-1.2); CALCIUM LEVEL 8.9 MG/DL (8.3-10.6); CREATININE FOR GFR 1.31 MG/DL (0.70-1.30); GLOMERULAR FILTRATION RATE 55.9 (>35); PERCENT SATURATION 17.7 % (19.7-50.0); POTASSIUM SERUM 4.2 MMOL/L (3.5-5.1); TOTAL PROTEIN 6.3 G/DL (5.7-8.2)
[2024-05-28 10:48] LABS: BASO # 0.1 10^3/uL (0.0-0.2); BASO % 0.8 % (0.0-1.0); EOS # 0.2 10^3/uL (0.0-0.5); EOS % 1.9 % (0.0-3.0); HEMATOCRIT 30.6 % (42.0-52.0); HEMOGLOBIN 9.2 g/dl (13.5-17.5); LYMPH # 0.7 10^3/uL (1.5-5.0); LYMPH % 7.6 % (24.0-44.0); MEAN CORPUSCULAR HEMOGLOBIN 30.9 pg (27.0-33.0); MEAN CORPUSCULAR HGB CONC 30.1 g/dl (32.0-36.5); MEAN CORPUSCULAR VOLUME 102.7 fl (80.0-96.0); MONO # 0.9 10^3/uL (0.0-0.8); MONO % 9.6 % (2.0-8.0); NEUTROPHILS # 6.8 10^3/uL (1.5-8.5); NEUTROPHILS % 75.1 % (36.0-66.0); PLATELET COUNT, AUTOMATED 368 10^3/uL (150-450); RED BLOOD COUNT 2.98 10^6/uL (4.30-6.10); WHITE BLOOD COUNT 9.1 10^3/uL (4.0-10.0)
[2024-05-28 10:51] LABS: FERRITIN 59.5 NG/ML (10.5-307.3)
== END ==
LOC: M PLALAB 06:51
PROVIDERS: ATTEND Student in an Organized Health Care Education/Training Program
DX: D64.9 Anemia, unspecified (principal)

== ENCOUNTER → 2024-06-27 | Outpatient (CLI) | payer MEDICARE ==
[2024-06-27 10:48] LABS: HEMOGLOBIN 10.9 g/dl (13.5-17.5); MEAN CORPUSCULAR HEMOGLOBIN 34.7 pg (27.0-33.0); MEAN CORPUSCULAR HGB CONC 31.1 g/dl (32.0-36.5); MEAN CORPUSCULAR VOLUME 111.5 fl (80.0-96.0); PLATELET COUNT, AUTOMATED 255 10^3/uL (150-450); RED BLOOD COUNT 3.14 10^6/uL (4.30-6.10); WHITE BLOOD COUNT 7.6 10^3/uL (4.0-10.0)
[2024-06-27 11:15] LABS: CALCIUM LEVEL 9.1 MG/DL (8.3-10.6); CREATININE FOR GFR 1.41 MG/DL (0.70-1.30); GLOMERULAR FILTRATION RATE 50.1 (>35); POTASSIUM SERUM 4.2 MMOL/L (3.5-5.1)
== END ==
LOC: M PLALAB 09:07
PROVIDERS: ATTEND Physician Assistant
DX: I48.0 Paroxysmal atrial fibrillation (principal); I50.32 Chronic diastolic (congestive) heart failure

== ENCOUNTER → 2024-07-11 | Outpatient (REF) | payer MEDICARE ==
[2024-07-11 18:51] LABS: PERCENT SATURATION 14.1 % (19.7-50.0)
== END ==
LOC: M LAB REF 17:36
PROVIDERS: ATTEND Internal Medicine Nephrology
DX: D50.9 Iron deficiency anemia, unspecified (principal)

== ENCOUNTER → 2024-09-26 | Outpatient (CLI) | payer MEDICARE ==
[~2024-09-26] MED LIST changes: +LIDO1ADH93 TD; -LIDO5DIS41 TD; +LORA-1164 PO; -LORA-622 PO
== END ==
LOC: M RAD 12:22
PROVIDERS: ATTEND Student in an Organized Health Care Education/Training Program
DX: J18.1 Lobar pneumonia, unspecified organism (principal); J98.11 Atelectasis; N26.1 Atrophy of kidney (terminal)

== ENCOUNTER → 2024-09-29 | Outpatient (REF) | payer MEDICARE | LOC: M SFHCPLAZ 12:47 | PROVIDERS: ATTEND Student in an Organized Health Care Education/Training Program | DX: Z53.9 Procedure and treatment not carried out, unspecified reason (principal) ==

== ENCOUNTER → 2024-09-30 | Outpatient (CLI) | payer MEDICARE ==
[2024-09-30 10:48] LABS: BASO # 0.1 10^3/uL (0.0-0.2); BASO % 0.9 % (0.0-1.0); EOS # 0.2 10^3/uL (0.0-0.5); EOS % 1.7 % (0.0-3.0); LYMPH # 0.8 10^3/uL (1.5-5.0); LYMPH % 8.8 % (24.0-44.0); MONO # 0.9 10^3/uL (0.0-0.8); MONO % 9.7 % (2.0-8.0); NEUTROPHILS # 7.0 10^3/uL (1.5-8.5); NEUTROPHILS % 77.1 % (36.0-66.0); PLATELET COUNT, AUTOMATED 262 10^3/uL (150-450)
[2024-09-30 10:56] LABS: IRON (FE) 98.0 UG/DL (65-175)
[2024-09-30 10:57] LABS: ALT/SGPT 18.0 U/L (7.0-40); AST/SGOT 22.0 U/L (<34); CALCIUM LEVEL 9.3 MG/DL (8.3-10.6); CARBON DIOXIDE LEVEL 32.0 MMOL/L (20-31); CHLORIDE LEVEL 102.0 MMOL/L (98-107); CHOLESTEROL LEVEL 108.0 MG/DL (<200); CHOLESTEROL RISK RATIO 2.89 (<5); CREATININE FOR GFR 1.45 MG/DL (0.70-1.30); GLOMERULAR FILTRATION RATE 48.4 (>35); LDL CHOLESTEROL 53.3 MG/DL (<100); NON-HDL-C 70.7 MG/DL; PERCENT SATURATION 29.0 % (19.7-50.0); POTASSIUM SERUM 4.6 MMOL/L (3.5-5.1); SODIUM LEVEL 142.0 MMOL/L (136-145); TRIGLYCERIDES LEVEL 87.0 MG/DL (<150)
[2024-09-30 10:59] LABS: FREE T4 1.13 NG/DL (0.89-1.76); VITAMIN B12 LEVEL 714.0 PG/ML (211-911)
== END ==
LOC: M PLALAB 06:48
PROVIDERS: ATTEND Student in an Organized Health Care Education/Training Program
DX: N18.31 Chronic kidney disease, stage 3a (principal); D50.0 Iron deficiency anemia secondary to blood loss (chronic); E78.2 Mixed hyperlipidemia

== ENCOUNTER → 2024-11-20 | Outpatient (REF) | payer MEDICARE ==
[~2024-11-20] MED LIST changes: -COLC0.6T47 PO; +COLC0.6T53 PO
[2024-11-20 15:29] LABS: IRON (FE) 91.0 UG/DL (65-175); PERCENT SATURATION 28.3 % (19.7-50.0)
== END ==
LOC: M LAB REF 12:10
PROVIDERS: ATTEND Nurse Practitioner Family
DX: D50.9 Iron deficiency anemia, unspecified (principal)

== ENCOUNTER 2025-02-09 21:53 | Inpatient (IN) | payer MEDICARE ==
[~2025-02-09] VITALS: Ht 165.1 cm; Wt 96.7 kg
[2025-02-10] MEDS: ACETAMINOPHEN 500 MG TAB PO ONE
[2025-02-10] MEDS: MORPHINE 2 MG/ML 1 ML VIAL IV PRN ×2 (00:01→07:27)
[2025-02-10 00:17] LABS: BASO # 0.1 10^3/uL (0.0-0.2); BASO % 0.3 % (0.0-1.0); EOS # 0.1 10^3/uL (0.0-0.5); EOS % 0.4 % (0.0-3.0); LYMPH # 0.4 10^3/uL (1.5-5.0); LYMPH % 2.5 % (24.0-44.0); MONO # 1.5 10^3/uL (0.0-0.8); MONO % 8.4 % (2.0-8.0); NEUTROPHILS # 15.2 10^3/uL (1.5-8.5); NEUTROPHILS % 87.1 % (36.0-66.0); PLATELET COUNT, AUTOMATED 278 10^3/uL (150-450)
[2025-02-10 00:28] LABS: ALT/SGPT 15.0 U/L (7.0-40); AST/SGOT 23.0 U/L (<34); CALCIUM LEVEL 8.8 MG/DL (8.3-10.6); CARBON DIOXIDE LEVEL 29.0 MMOL/L (20-31); CHLORIDE LEVEL 101.0 MMOL/L (98-107); CREATININE FOR GFR 1.32 MG/DL (0.70-1.30); GLOMERULAR FILTRATION RATE 53.9 (>35); POTASSIUM SERUM 4.2 MMOL/L (3.5-5.1); SODIUM LEVEL 139.0 MMOL/L (136-145)
[2025-02-10] MEDS: MORPHINE 4 MG/ML 1 ML VIAL IV PRN (01:41)
[2025-02-10] MEDS ORDERED: ACETAMINOPHEN 325 MG TAB PO PRN (02:15)
[2025-02-10] MEDS: HYDROMORPHONE HCL 0.5 MG/0.5 ML SYRINGE IV PRN (02:30)
[2025-02-10] MEDS ORDERED: VANCOMYCIN HCL 1,000 MG, VIAL MATE ADAPTER 1 EACH in NS 250 ML IV SCH (03:05)
[2025-02-10] MEDS ORDERED: VANCOMYCIN HCL 1,750 MG, VIAL MATE ADAPTER 1 EACH in NS 500 ML IV ONE (03:30)
[2025-02-10 04:15] VITALS: BP 165/80; TEMP 98.4; O2SAT 98
[2025-02-10] MEDS: ACETAMINOPHEN *IV* 1,000 MG in IV 1 EA IV PRN (04:24)
[2025-02-10] MEDS: VANCOMYCIN HCL 2,000 MG, VIAL MATE ADAPTER 1 EACH in NS 500 ML IV ONE (04:24)
[2025-02-10 06:53] LABS: BASO # 0.0 10^3/uL (0.0-0.2); BASO % 0.2 % (0.0-1.0); EOS # 0.0 10^3/uL (0.0-0.5); EOS % 0.1 % (0.0-3.0); LYMPH # 0.4 10^3/uL (1.5-5.0); LYMPH % 2.8 % (24.0-44.0); MONO # 1.4 10^3/uL (0.0-0.8); MONO % 9.5 % (2.0-8.0); NEUTROPHILS # 13.1 10^3/uL (1.5-8.5); NEUTROPHILS % 86.1 % (36.0-66.0); PLATELET COUNT, AUTOMATED 246 10^3/uL (150-450)
[2025-02-10 07:20] LABS: CALCIUM LEVEL 8.0 MG/DL (8.3-10.6); CARBON DIOXIDE LEVEL 28.0 MMOL/L (20-31); CHLORIDE LEVEL 102.0 MMOL/L (98-107); CREATININE FOR GFR 1.27 MG/DL (0.70-1.30); GLOMERULAR FILTRATION RATE 56.4 (>35); POTASSIUM SERUM 4.2 MMOL/L (3.5-5.1); SODIUM LEVEL 138.0 MMOL/L (136-145)
[2025-02-10] MEDS: cefTRIAXone SOD 2 GM in DEXTROSE 5% (D5W) ADV/MINI-BAG 50 ML IV SCH (08:25)
[2025-02-10] MEDS: PANTOPRAZOLE 40MG VIAL IV SCH (08:25)
[2025-02-10] MEDS ORDERED: PANTOPRAZOLE 40MG TAB PO SCH (09:00)
[2025-02-10] MEDS ORDERED: FURO40TA2 PO (10:08)
[2025-02-10] MEDS ORDERED: CETI-25 PO (10:09)
[2025-02-10] MEDS ORDERED: PANT-23 PO (10:09)
[2025-02-10] MEDS ORDERED: HOME MED LIST COMPLETE! XX SCH (10:10)
[2025-02-10 11:33] LABS: C REACTIVE PROTEIN QUANTITATIV 4.34 MG/DL (<1.0)
[2025-02-10 12:03] VITALS: BP 172/76; TEMP 99.4; O2SAT 99
[2025-02-10 12:15] VITALS: BP 156/70
[2025-02-10] MEDS ORDERED: ACETAMINOPHEN 500 MG TAB PO PRN (12:55)
[2025-02-10] MEDS: HEPARIN SOD 5000 UNITS/ML 1 ML VIAL/SYRINGE SQ SCH (14:26)
[2025-02-10] MEDS: FERROUS SULFATE 325 MG TAB PO SCH (14:26)
[2025-02-10] MEDS: COLCHICINE 0.6 MG TABLET PO ONE ×2 (14:28→15:38)
[2025-02-10] MEDS: SPIRONOLACTONE 25 MG TAB PO SCH (14:28)
[2025-02-10] MEDS: METOPROLOL TART 25 MG TABLET PO SCH (14:35)
[2025-02-10 17:17] VITALS: BP 134/70
[2025-02-10] MEDS: SYMBICORT 80/4.5MCG INHALER 6GM INH SCH (19:15)
[2025-02-10] MEDS: IPRATROPIUM 0.5 MG/ALBUTEROL 2.5 MG INH SOL UD 3 ML NEB SCH (19:15)
[2025-02-10] MEDS: SENNOSIDES/DOCUSATE SODIUM 8.6 MG/50MG TAB PO SCH (20:21)
[2025-02-10] MEDS: MONTELUKAST 10 MG TAB PO SCH (20:21)
[2025-02-10] MEDS: APIXABAN 5 MG TAB PO SCH (20:22)
[2025-02-10] MEDS: ATORVASTATIN 20 MG TAB PO SCH (20:22)
[2025-02-10] MEDS: VANCOMYCIN HCL 1,250 MG, VIAL MATE ADAPTER 1 EACH in NS 250 ML IV SCH (20:22)
[2025-02-10] MEDS: MAGNESIUM OXIDE 400 MG TAB PO SCH (20:22)
[2025-02-10] MEDS: SUCRALFATE 1 GM TAB PO SCH (20:22)
[2025-02-10 22:03] VITALS: BP 158/70
[2025-02-10 22:22] VITALS: TEMP 99; O2SAT 96
[2025-02-11 04:08] VITALS: BP 142/70; TEMP 98.6; O2SAT 94
[2025-02-11 06:00] LABS: BASO # 0.0 10^3/uL (0.0-0.2); BASO % 0.3 % (0.0-1.0); EOS # 0.1 10^3/uL (0.0-0.5); EOS % 0.5 % (0.0-3.0); LYMPH # 0.5 10^3/uL (1.5-5.0); LYMPH % 4.8 % (24.0-44.0); MONO # 1.3 10^3/uL (0.0-0.8); MONO % 11.7 % (2.0-8.0); NEUTROPHILS # 8.6 10^3/uL (1.5-8.5); NEUTROPHILS % 81.0 % (36.0-66.0); PLATELET COUNT, AUTOMATED 216 10^3/uL (150-450)
[2025-02-11 06:19] LABS: CALCIUM LEVEL 8.0 MG/DL (8.3-10.6); CARBON DIOXIDE LEVEL 27.0 MMOL/L (20-31); CHLORIDE LEVEL 105.0 MMOL/L (98-107); CREATININE FOR GFR 1.39 MG/DL (0.70-1.30); GLOMERULAR FILTRATION RATE 50.6 (>35); POTASSIUM SERUM 3.9 MMOL/L (3.5-5.1); SODIUM LEVEL 141.0 MMOL/L (136-145)
[2025-02-11 06:31] LABS: C REACTIVE PROTEIN QUANTITATIV 21.0 MG/DL (<1.0)
[2025-02-11] MEDS: TIOTROPIUM BROM 2.5MCG/ACTUATION 4GM INH INH SCH (07:20)
[2025-02-11 08:15] VITALS: BP 155/68; TEMP 99.7; O2SAT 95
[2025-02-11] MEDS: COLCHICINE 0.6 MG TABLET PO SCH (08:15)
[2025-02-11] MEDS: PANTOPRAZOLE 40MG TAB PO SCH (08:16)
[2025-02-11] MEDS: traMADol 50 MG TAB PO PRN (08:31)
[2025-02-11] MEDS: CETIRIZINE 10 MG TAB PO PRN (08:33)
[2025-02-11 11:58] VITALS: BP 137/67; TEMP 99.4; O2SAT 93
[2025-02-11] MEDS: FUROSEMIDE 40 MG TAB PO SCH (13:20)
[2025-02-11 20:26] VITALS: BP 146/62; TEMP 99.3; O2SAT 93
[2025-02-11] MEDS: HEPARIN SOD 5000 UNITS/ML 1 ML VIAL/SYRINGE SQ SCH (22:00)
[2025-02-12 04:02] VITALS: BP 143/64; TEMP 97.3; O2SAT 95
[2025-02-12 07:01] LABS: BASO # 0.0 10^3/uL (0.0-0.2); BASO % 0.3 % (0.0-1.0); EOS # 0.0 10^3/uL (0.0-0.5); EOS % 0.0 % (0.0-3.0); LYMPH # 0.2 10^3/uL (1.5-5.0); LYMPH % 2.8 % (24.0-44.0); MONO # 0.4 10^3/uL (0.0-0.8); MONO % 5.4 % (2.0-8.0); NEUTROPHILS # 7.2 10^3/uL (1.5-8.5); NEUTROPHILS % 89.7 % (36.0-66.0); PLATELET COUNT, AUTOMATED 241 10^3/uL (150-450)
[2025-02-12 07:31] LABS: CALCIUM LEVEL 8.3 MG/DL (8.3-10.6); CARBON DIOXIDE LEVEL 26.0 MMOL/L (20-31); CHLORIDE LEVEL 104.0 MMOL/L (98-107); CREATININE FOR GFR 1.46 MG/DL (0.70-1.30); GLOMERULAR FILTRATION RATE 47.7 (>35); POTASSIUM SERUM 4.4 MMOL/L (3.5-5.1); SODIUM LEVEL 141.0 MMOL/L (136-145)
[2025-02-12 07:44] LABS: C REACTIVE PROTEIN QUANTITATIV 17.06 MG/DL (<1.0)
[2025-02-12] MEDS: predniSONE 20 MG TAB PO SCH (08:25)
[2025-02-12] MEDS ORDERED: IPRATROPIUM 0.5 MG/ALBUTEROL 2.5 MG INH SOL UD 3 ML NEB PRN (09:25)
[2025-02-12 11:55] VITALS: BP 116/77; TEMP 98.8; O2SAT 96
[2025-02-12] MEDS: APIXABAN 5 MG TAB PO SCH (20:57)
[2025-02-12 21:00] VITALS: BP 140/63; TEMP 98; O2SAT 95
[2025-02-13 03:23] VITALS: BP 126/60; TEMP 98.7; O2SAT 96
[2025-02-13 06:29] LABS: BASO # 0.0 10^3/uL (0.0-0.2); BASO % 0.1 % (0.0-1.0); EOS # 0.0 10^3/uL (0.0-0.5); EOS % 0.1 % (0.0-3.0); LYMPH # 0.3 10^3/uL (1.5-5.0); LYMPH % 1.9 % (24.0-44.0); MONO # 0.7 10^3/uL (0.0-0.8); MONO % 4.8 % (2.0-8.0); NEUTROPHILS # 12.7 10^3/uL (1.5-8.5); NEUTROPHILS % 91.0 % (36.0-66.0); PLATELET COUNT, AUTOMATED 281 10^3/uL (150-450)
[2025-02-13 06:49] LABS: C REACTIVE PROTEIN QUANTITATIV 8.25 MG/DL (<1.0)
[2025-02-13 06:50] LABS: CALCIUM LEVEL 8.7 MG/DL (8.3-10.6); CARBON DIOXIDE LEVEL 24.0 MMOL/L (20-31); CHLORIDE LEVEL 107.0 MMOL/L (98-107); CREATININE FOR GFR 1.49 MG/DL (0.70-1.30); GLOMERULAR FILTRATION RATE 46.6 (>35); POTASSIUM SERUM 4.1 MMOL/L (3.5-5.1); SODIUM LEVEL 142.0 MMOL/L (136-145)
[2025-02-13 08:29] VITALS: BP 106/55
[2025-02-13] MEDS: FLUZONE HIGH DOSE (65+) 0.5 ML SYRINGE (25-26) IM.IMMUN ONE (11:01)
[2025-02-13] MEDS ORDERED: PRED10TA2 PO (12:10)
[2025-02-13] MEDS ORDERED: DOXY-440 PO (12:10)
[2025-02-13] MEDS ORDERED: CEFD1CAP9 PO (12:10)
[2025-02-13] MEDS ORDERED: MUCI600T31 PO (12:14)
[2025-02-17 06:03] LABS: LYME TOTAL ANTIBODY CIA <= 0.90 Index (<=0.90)
== END 2025-02-13 13:54 | disposition home health service (06) | DRG 603 ==
LOC: M ED 21:53 → M ED INP 21:54 → M MSPAV 02-10 04:13 → OBSVTOIN 02-11 14:29
PROVIDERS: ADMIT Student in an Organized Health Care Education/Training Program; ATTEND Internal Medicine
PROC: 0M943ZX Drainage of Left Elbow Bursa and Ligament, Percutaneous Approach, Diagnostic (ICD-10-PCS; principal; 2025-02-10)
DX: L03.114 Cellulitis of left upper limb (principal); I13.0 Hypertensive heart and chronic kidney disease with heart failure and stage 1 through stage 4 chronic kidney disease, or unspecified chronic kidney disease; M10.9 Gout, unspecified; I25.10 Atherosclerotic heart disease of native coronary artery without angina pectoris; J44.9 Chronic obstructive pulmonary disease, unspecified; N18.9 Chronic kidney disease, unspecified; G47.33 Obstructive sleep apnea (adult) (pediatric); K21.9 Gastro-esophageal reflux disease without esophagitis; I50.9 Heart failure, unspecified; Z98.41 Cataract extraction status, right eye; I48.91 Unspecified atrial fibrillation; Z98.42 Cataract extraction status, left eye; Z95.0 Presence of cardiac pacemaker; D53.9 Nutritional anemia, unspecified; G89.29 Other chronic pain; Z79.01 Long term (current) use of anticoagulants; Z79.82 Long term (current) use of aspirin; Z79.899 Other long term (current) drug therapy; Z88.8 Allergy status to other drugs, medicaments and biological substances; Z91.048 Other nonmedicinal substance allergy status; Z95.2 Presence of prosthetic heart valve; Z86.73 Personal history of transient ischemic attack (TIA), and cerebral infarction without residual deficits